=== PATIENT | female | born 1935 | race American Indian/Alaskan Native ===

== ENCOUNTER 2016-08-06 07:46 | Observation (INO) | payer MEDICARE, OTHER ==
[2016-08-06 07:46] VITALS: BMI 44.8
--- NOTE | 2016-08-06 08:33 | C.PDOC ---
History Of Present Illness Patient is a 80 y/o female, whose PMHx includes CHF, COPD, HTN, GERD, presents to the ED for evaluation of gradual onset of dizziness, and epigastric abdominal pain that developed this morning associated with chest pressure and tightness, dyspnea. Pt admits, similar sx in past " few months ago when was diagnosed with pneumonia". Otherwise, patient denies recent illness, fever, chills, denies severe headache, visual changes, focal deficits, cough, wheezing , palpitations, diaphoresis, V/D, UTI sx. Ambulate to ED , not in any apparent distress. Time Seen by Provider: 08/06/16 08:15 Chief Complaint (Nursing): Dizziness/Lightheaded History Per: Patient History/Exam Limitations: no limitations Onset/Duration Of Symptoms: Gradual Current Symptoms Are (Timing): Still Present Associated Symptoms Preceding Syncopal Episode: Lightheadedness Additional History Per: Patient Past Medical History Reviewed: Historical Data, Nursing Documentation, Vital Signs Vital Signs: Last Vital Signs Temp 97.6 F 08/06/16 11:06 Pulse 72 08/06/16 14:38 Resp 18 08/06/16 14:38 BP 119/68 08/06/16 14:38 Pulse Ox 99 08/06/16 14:38 - Medical History PMH: Arthritis, Asthma, Bronchitis, Gastritis, Gall Bladder Disease, HTN, Hypothyroidism, Peripheral Edema Denies: Chronic Kidney Disease Surgical History: Cholecystectomy - [facility] Procedures CLOSED ENDOSCOPIC BIOPSY OF LARGE INTESTINE (12/10/13) ESOPHAGOGASTRODUODENOSCOPY [EGD] W/CLOSED BIOPSY (12/10/13) Family History: States: Unknown Family Hx - Social History Hx Tobacco Use: No Hx Alcohol Use: No Hx Substance Use: No - Immunization History Hx Tetanus Toxoid Vaccination: No Hx Influenza Vaccination: Yes Hx Pneumococcal Vaccination: Yes Review Of Systems Except As Marked, All Systems Reviewed And Found Negative. Constitutional: Negative for: Fever, Chills Cardiovascular: Positive for: Light Headedness, Other (chest tightness/pressure) . Negative for: Chest Pain, Palpitations, Edema Respiratory: Negative for: Shortness of Breath Gastrointestinal: Positive for: Abdominal Pain (epigastric). Negative for: Nausea, Vomiting, Diarrhea Neurological: Positive for: Dizziness. Negative for: Weakness, Numbness, Headache Physical Exam - Physical Exam Appears: Non-toxic, No Acute Distress Skin: Normal Color, Warm, Dry, No Rash Head: Atraumatic, Normacephalic Eye(s): bilateral: Normal Inspection, PERRL, EOMI Nose: Normal Oral Mucosa: Moist Throat: Normal, No Erythema, No Exudate, No Drooling Neck: Normal, Normal ROM, Supple Chest: Symmetrical, No Tenderness Cardiovascular: Rhythm Regular, No Friction Rub, No Murmur, JVD Respiratory: Normal Breath Sounds, No Rales, No Rhonchi, No Stridor, No Wheezing Gastrointestinal/Abdominal: Soft, Tenderness (mild epigastric), No Guarding, No Rebound Back: Normal Inspection Extremity: Pedal Edema (B/L 1+/2+), No Calf Tenderness, No Deformity Neurological/Psych: Oriented x3, Normal Speech, Normal Cognition, Normal Motor, Normal Sensation, Normal Reflexes ED Course And Treatment - Laboratory Results Result Diagrams: 08/06/16 09:02 08/06/16 09:02 ECG: Interpreted By Me, Viewed By Me ECG Rhythm: Sinus Rhythm, R BBB ECG Interpretation: No Changes From Prior (01/31/16) Interpretation Of ECG: SR@69/min, LAD, RBBB, T wave inversion in III, AVF, V1- V5. Rate From EC (bpm) O2 Sat by Pulse Oximetry: 100 (on RA) Pulse Ox Interpretation: Normal - Other Rad CXR X-Ray: Read By Radiologist Interpretation: IMPRESSION: Bibasilar atelectasis. Elevation of the right hemidiaphragm. Progress Note: Labs, EKG, CXR ordered and reviewed. Patient was treated with Pepcid IVP, and and Zofran inj in the ER. On re-eval, pt remained unchanged. Diagnostics and imaging review and case discussed with ED attending and admission recommend. Case discussed with pt's PMD and admission arranged to tele, OBS. Disposition - Disposition Disposition: HOSPITALIZED Disposition Time: 10:33 Condition: STABLE - Clinical Impression Clinical Impression: Heart failure, Chest pain, Dyspnea - PA / SUPER[employer]OR [employer] / Resident Statement MD/DO has reviewed & agrees with the documentation as recorded. - Scribe Statement The provider has reviewed the documentation as recorded by the Scribe Maryann Young All medical record entries made by the Leslyibe were at my direction and personally dictated by me. I have reviewed the chart and agree that the record accurately reflects my personal performance of the history, physical exam, medical decision making, and the department course for this patient. I have also personally directed, reviewed, and agree with the discharge instructions and disposition.
[2016-08-06 09:07] LABS: BASO # 0.1 K/uL (0.0-0.2); BASO % 0.7 % (0.0-2.0); EOS # 0.1 K/uL (0.0-0.7); EOS % 1.6 % (0.0-4.0); HEMATOCRIT 33.8 % (34.0-47.0); LYMPH # 2.5 K/uL (1.0-4.3); LYMPH % 28.1 % (20.0-40.0); MEAN CELL VOLUME 80.4 fL (81.0-99.0); MEAN CORPUSCULAR HEMOGLOBIN 25.3 pg (27.0-31.0); MEAN CORPUSCULAR HGB CONC 31.4 g/dL (33.0-37.0); MONO # 0.6 K/uL (0.0-0.8); MONO % 6.6 % (0.0-10.0); RED CELL DISTRIBUTION WIDTH 15.4 % (11.5-14.5); WHITE BLOOD COUNT 8.9 K/uL (4.8-10.8)
[2016-08-06 09:14] LABS: CHLORIDE 101 mmol/L (98-107); INR 1.1
[2016-08-06 09:15] LABS: POTASSIUM 3.6 mmol/L (3.6-5.2); SODIUM 141 mmol/L (132-148)
[2016-08-06 09:17] LABS: ALB/GLOB RATIO 1.1 (1.0-2.1); BILIRUBIN,TOTAL 0.4 mg/dL (0.2-1.3); CARBON DIOXIDE 29 mmol/L (22-30); GFR AFRICAN-AMERICAN > 60
[2016-08-06 09:18] LABS: ALKALINE PHOSPHATASE 56 U/L (38-126); ALT/SGPT 18 U/L (9-52); AST/SGOT 36 U/L (14-36); BLOOD UREA NITROGEN 11 mg/dL (7-17); CALCIUM 8.8 mg/dl (8.6-10.4); GLUCOSE,RANDOM 96 mg/dL (65-105)
--- NOTE | 2016-08-06 10:07 | RAD ---
HISTORY: chest pain COMPARISON: Chest x-ray performed 02/04/16 TECHNIQUE: Chest, one view. FINDINGS: Examination limited by habitus and hypoinflation. LUNGS: Bibasilar atelectasis. Please note that chest x-ray has limited sensitivity for the detection of pulmonary masses. PLEURA: No significant pleural effusion identified. No definite pneumothorax . CARDIOVASCULAR: Cardiomegaly. Atherosclerotic calcifications of the aortic knob. OSSEOUS STRUCTURES: Degenerative changes. VISUALIZED UPPER ABDOMEN: Elevated right hemidiaphragm. OTHER FINDINGS: None. IMPRESSION: Bibasilar atelectasis. Elevation of the right hemidiaphragm.
[2016-08-06] MEDS ORDERED: Albuterol 0.083% Inhal Sol (2.5 mg/3 mL) UD IH STA (11:06)
[2016-08-06] MEDS ORDERED: Albuterol 0.083% Inhal Sol (2.5 mg/3 mL) UD ONE (11:13)
[2016-08-06 12:37] LABS: RBC URINE < 1 /hpf (0-3); URINE BILIRUBIN NEGATIVE (NEGATIVE); URINE BLOOD NEGATIVE (NEGATIVE); URINE COLOR Yellow (YELLOW); URINE GLUCOSE (UA) NORMAL (Normal); URINE KETONE NEGATIVE (NEGATIVE); URINE LEUKOCYTE ESTERASE TRACE Leu/uL (Negative); URINE PROTEIN NEGATIVE (NEGATIVE); URINE UROBILINOGEN NORMAL mg/dL (0.2-1.0); WBC URINE 4 /hpf (0-5)
[2016-08-06] MEDS ORDERED: Albuterol HFA 90 mcg/actuation (8 g) INH PRN (21:51)
[2016-08-07 01:07] VITALS: RESP 20
[2016-08-07 06:31] LABS: CHOLESTEROL 151 mg/dL (0-199); MEAN CELL VOLUME 80.5 fL (81.0-99.0); MEAN CORPUSCULAR HEMOGLOBIN 25.2 pg (27.0-31.0); MEAN CORPUSCULAR HGB CONC 31.2 g/dL (33.0-37.0); MEAN PLATELET VOLUME 8.1 fL (7.2-11.7); RED CELL DISTRIBUTION WIDTH 15.2 % (11.5-14.5); WHITE BLOOD COUNT 8.6 K/uL (4.8-10.8)
[2016-08-07 06:34] LABS: IRON 30 ug/dL (37-170)
[2016-08-07 06:47] LABS: CHLORIDE 100 mmol/L (98-107); POTASSIUM 3.5 mmol/L (3.6-5.2); SODIUM 139 mmol/L (132-148)
[2016-08-07 06:49] LABS: GFR AFRICAN-AMERICAN > 60
[2016-08-07 06:50] LABS: BLOOD UREA NITROGEN 10 mg/dL (7-17); CALCIUM 8.2 mg/dl (8.6-10.4); CARBON DIOXIDE 33 mmol/L (22-30); GLUCOSE,RANDOM 89 mg/dL (65-105)
[2016-08-07 07:09] LABS: THYROID STIMULATING HORMONE 4.17 mIU/L (0.46-4.68)
[2016-08-07 07:38] LABS: FOLATE 15.8 ng/mL
--- NOTE | 2016-08-07 07:44 | HP ---
CHIEF COMPLAINT: Shortness of breath, chest pain. HISTORY OF PRESENT ILLNESS: The patient is an 80-year-old female with past medical history of congestive heart failure, COPD, hypertension, GERD, dyspepsia. Came to the Emergency Room for evaluation of gradual onset of dizziness, epigastric abdominal pain , This morning associated with chest pressure and tightness, dyspnea. The patient admitted with similar history in the past a few months ago when was diagnosed with pneumonia. The patient denies recent illness. No fever, no chills. Denies severe headache, visual changes, facial deficit, hematuria, hematochezia. Sometimes feeling shortness of breath, sometimes feeling lightheadedness. PAST MEDICAL HISTORY: As above, arthritis, asthma, bronchitis, gastritis, gallbladder disease, cholelithiasis, hypertension, hypothyroidism, peripheral edema. FAMILY HISTORY: Father and mother unknown. HABITS: Never smoked, no drugs, no ethanol. REVIEW OF SYSTEMS: The patient was seen and examined on the bedside in the ER, was having breakfast. Complaining about lightheadedness, chest tightness and pressure, coughing, swelling of the legs. No fever, no chills. No abdominal pain. No nausea, vomiting, diarrhea. Positive for dizziness, but no weakness, numbness or headache. PHYSICAL EXAMINATION: VITAL SIGNS: Temperature 97.6, pulse 72, respiratory rate 18, blood pressure 119/80 , pulse oximetry 99%. HEENT: Normocephalic, atraumatic. Eyes: PERRLA. Extraocular muscles intact. Conjunctivae pink. Eyelids unremarkable. Nose patent. Mucous membranes moist. NECK: Supple. No carotid bruit, no JVD, no thyromegaly. CHEST: Bilaterally symmetrical. HEART: S1, S2 positive. LUNGS: Clear to auscultation. ABDOMEN: Soft. Bowel sounds positive. No organomegaly. EXTREMITIES: Positive edema. No calf tenderness. No deformity. NEUROLOGIC: The patient is oriented x 3. Cranial nerves II-XII are grossly intact. LABORATORIES: White blood cells 8.9, hemoglobin 10.6, hematocrit 33.8, platelets 215. Sodium 141, potassium 3.6, BUN 11, creatinine 0.8, glucose 96. ASSESSMENT AND PLAN: The patient is an 80-year-old female with anemia, came with exacerbation of chronic obstructive pulmonary disease, asthma, rule out congestive heart failure, chest pain, dyspnea, history of congestive heart failure, chronic obstructive pulmonary disease, hypertension, gastroesophageal reflux disease, dyspepsia, degenerative joint disease, bronchitis, gastritis, cholelithiasis, hypothyroidism, obesity. We admitted the patient. Called cardiology and pulmonary consult. Started home medications , albuterol, carvedilol, Crestor for hypercholesterolemia, Lovenox for deep venous thrombosis prophylaxis , Pepcid for gastrointestinal prophylaxis. Gastrointestinal and deep venous thrombosis prophylaxis. Repeat labs. We will follow up. Sherron Lane MD cc: [id number] TT: 08/07/2016 07:44:26 en MTDD
[2016-08-07] MEDS ORDERED: POTASSIUM CITRATE 10 MEQ PO SCH (10:00)
[2016-08-07] MEDS ORDERED: MethylPREDNISolone 40 mg Vial IVP SCH (10:00)
[2016-08-07] MEDS: Enoxaparin 40 mg Syringe SC SCH (10:06)
--- NOTE | 2016-08-07 12:50 | CP.PCM.CON ---
History of Present Illness - History of Present Illness History of Present Illness: Pulmonology consulted for shortness of breath. Patient is an 80yo AA F that originally presented to with shortness of breath , dizziness, and chest tightness x1 day. The patient reported no inciting factors that lead to this episode of dyspnea. The patients reports that she had developed a cough with yellow sputum around the same time as the dyspnea. The patient reported that this had happened a few months ago prior and was diagnosed with pneumonia. The patient also complains of LE edema bilaterally. The patient currently denies, chest pain, palpitations, nausea, vomiting, fever , nasal congestion, abd pain, joint pain. PMH:Asthma, bronchitis, gastritis, HTN, Hypothyroidism PSH: Cholecystectomy, Thyroidectomy Allergies: Fish FamHx: Denies significant family history Social: Denies smoking, etoh, and illicit drug use. Review of Systems - Constitutional Constitutional: Chills, Headache. absent: Fever - EENT Eyes: absent: Blurred Vision, Change in Vision Nose/Mouth/Throat: absent: Nasal Congestion, Nasal Discharge, Sore Throat - Cardiovascular Cardiovascular: Dyspnea, Dyspnea on Exertion. absent: Chest Pain, Chest Pain at Rest - Respiratory Respiratory: Cough, Dyspnea, Dyspnea on Exertion, Wheezing, Change in Mucous Color. absent: Hemoptysis, Stridor, Pain on Inspiration, Pain with Coughing Past Patient History - Infectious Disease Hx of Infectious Diseases: None - Past Medical History & Family History Past Medical History?: Yes - Past Social History Smoking Status: Never Smoked - CARDIAC Hx Hypertension: Yes Hx Peripheral Edema: Yes - PULMONARY Hx Asthma: Yes Hx Bronchitis: Yes - NEUROLOGICAL Hx Neurological Disorder: Yes Hx Dizziness: Yes - HEENT Hx HEENT Problems: Yes Hx Epistaxis: Yes Hx Glaucoma: Yes Other/Comment: 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 wear glasses for poor vision - RENAL Hx Chronic Kidney Disease: No - ENDOCRINE/METABOLIC Hx Hypothyroidism: Yes - HEMATOLOGICAL/ONCOLOGICAL Hx Blood Disorders: Yes Hx Blood Transfusions: Yes (x 2) Hx Blood Transfusion Reaction: No - INTEGUMENTARY Hx Dermatological Problems: No - MUSCULOSKELETAL/RHEUMATOLOGICAL Hx Arthritis: Yes - GASTROINTESTINAL Hx Gall Bladder Disease: Yes Hx Gastritis: Yes - GENITOURINARY/GYNECOLOGICAL Hx Genitourinary Disorders: No - PSYCHIATRIC Hx Substance Use: No - SURGICAL HISTORY Hx Cholecystectomy: Yes - ANESTHESIA Hx Anesthesia: Yes Hx Anesthesia Reactions: Yes Hx Malignant Hyperthermia: No Meds Allergies/Adverse Reactions: Allergies Allergy/AdvReac Type Severity Reaction Status Date / Time FISH Allergy RASH Verified 08/06/16 08:06 seasonal Allergy Uncoded 08/06/16 08:06 - Medications Medications: Current Medications Albuterol (Ventolin Hfa 90 Mcg/Actuation (8 G)) 1 puff INH RQ4 PRN PRN Reason: Shortness of Breath Amlodipine Besylate (Norvasc) 10 mg PO DAILY [facility] Last Admin: 08/07/16 10:06 Dose: 10 mg Carvedilol (Coreg) 12.5 mg PO BID [facility] Last Admin: 08/07/16 10:13 Dose: 12.5 mg Enalapril Maleate (Vasotec) 20 mg PO BID [facility] Last Admin: 08/07/16 10:13 Dose: 20 mg Enoxaparin Sodium (Lovenox) 40 mg SC DAILY [facility] Last Admin: 08/07/16 10:06 Dose: 40 mg Ferrous Sulfate (Feosol) 325 mg PO DAILY [facility] Last Admin: 08/07/16 10:06 Dose: 325 mg Furosemide (Lasix) 40 mg PO DAILY [facility] Last Admin: 08/07/16 10:06 Dose: 40 mg Home Med (Potassium Citrate [Potassium Citrate Er]) 10 meq PO DAILY [facility] Methylprednisolone (Solu-Medrol) 40 mg IVP Q12 [facility] Last Admin: 08/07/16 10:06 Dose: 40 mg Rosuvastatin Calcium (Crestor) 5 mg PO HS [facility] Last Admin: 08/06/16 22:37 Dose: 5 mg Physical Exam - Constitutional Appears: Well, Non-toxic, No Acute Distress - Head Exam Head Exam: ATRAUMATIC, NORMAL INSPECTION - Eye Exam Eye Exam: EOMI, Normal appearance - ENT Exam ENT Exam: Normal Exam - Neck Exam Neck exam: Positive for: Normal Inspection - Respiratory Exam Respiratory Exam: Wheezes. absent: Chest Wall Tenderness, Decreased Breath Sounds - Cardiovascular Exam Cardiovascular Exam: +S1, +S2 - Neurological Exam Neurological exam: Alert, Oriented x3 - Skin Skin Exam: Dry, Normal Color, Warm Results - Vital Signs Recent Vital Signs: Last Vital Signs Temp 99.0 F 08/07/16 09:11 Pulse 72 08/07/16 09:11 Resp 20 08/07/16 09:11 BP 121/78 08/07/16 10:13 Pulse Ox 95 04/17/17 09:11 - Labs Result Diagrams: 08/07/16 06:11 08/07/16 06:11 Labs: Laboratory Results - last 24 hr 08/07/16 06:11 WBC 8.6 RBC 4.10 Hgb 10.3 L Hct 33.0 L MCV 80.5 L MCH 25.2 L MCHC 31.2 L RDW 15.2 H Plt Count 206 MPV 8.1 Sodium 139 Potassium 3.5 L Chloride 100 Carbon Dioxide 33 H Anion Gap 10 BUN 10 Creatinine 0.8 Est GFR ( Amer) > 60 Est GFR (Non-Af Amer) > 60 Random Glucose 89 Hemoglobin A1c 6.5 Calcium 8.2 L Iron 30 L TIBC 211 L % Saturation 14 L Total Creatine Kinase 52 CK-MB (Mass) 0.65 Troponin I, Quant < 0.0120 NT-Pro-B Natriuret Pep 160 Triglycerides 125 Cholesterol 151 LDL Cholesterol Direct 72 HDL Cholesterol 35 Vitamin B12 933 H Folate 15.8 TSH 3rd Generation 4.17 Assessment & Plan - Assessment and Plan (Free Text) Plan: 1) Asthma ABG on Room Air Continue Steroids continue breathing treatments as necessary - Date & Time Date: 08/07/16 Time: 12:49
[2016-08-07] MEDS ORDERED: Potassium Chloride 20 mEq ER Tab PO SCH (16:45)
[2016-08-07] MEDS ORDERED: Magnesium Hydroxide Susp 30 ml UD PO ONE (16:47)
[2016-08-07] MEDS: Potassium Chloride 20 mEq ER Tab PO SCH (17:29)
--- NOTE | 2016-08-07 18:08 | CP.PCM.CON ---
History of Present Illness - History of Present Illness History of Present Illness: Shortness of breath with swelling of the legs for the last few weeks. On the day of admission got worse and came to hospital for treatment. Review of Systems - EENT Eyes: Diplopia Past Patient History - Infectious Disease Hx of Infectious Diseases: None - Past Medical History & Family History Past Medical History?: Yes - Past Social History Smoking Status: Never Smoked - CARDIAC Hx Hypertension: Yes Hx Peripheral Edema: Yes - PULMONARY Hx Asthma: Yes Hx Bronchitis: Yes - NEUROLOGICAL Hx Neurological Disorder: Yes Hx Dizziness: Yes - HEENT Hx HEENT Problems: Yes Hx Epistaxis: Yes Hx Glaucoma: Yes Other/Comment: 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 wear glasses for poor vision - RENAL Hx Chronic Kidney Disease: No - ENDOCRINE/METABOLIC Hx Hypothyroidism: Yes - HEMATOLOGICAL/ONCOLOGICAL Hx Blood Disorders: Yes Hx Blood Transfusions: Yes (x 2) Hx Blood Transfusion Reaction: No - INTEGUMENTARY Hx Dermatological Problems: No - MUSCULOSKELETAL/RHEUMATOLOGICAL Hx Arthritis: Yes - GASTROINTESTINAL Hx Gall Bladder Disease: Yes Hx Gastritis: Yes - GENITOURINARY/GYNECOLOGICAL Hx Genitourinary Disorders: No - PSYCHIATRIC Hx Substance Use: No - SURGICAL HISTORY Hx Cholecystectomy: Yes - ANESTHESIA Hx Anesthesia: Yes Hx Anesthesia Reactions: Yes Hx Malignant Hyperthermia: No Meds Allergies/Adverse Reactions: Allergies Allergy/AdvReac Type Severity Reaction Status Date / Time FISH Allergy RASH Verified 08/06/16 08:06 seasonal Allergy Uncoded 08/06/16 08:06 - Medications Medications: Current Medications Albuterol (Ventolin Hfa 90 Mcg/Actuation (8 G)) 1 puff INH RQ4 PRN PRN Reason: Shortness of Breath Amlodipine Besylate (Norvasc) 10 mg PO DAILY [facility] Last Admin: 08/07/16 10:06 Dose: 10 mg Carvedilol (Coreg) 12.5 mg PO BID [facility] Last Admin: 08/07/16 17:29 Dose: 12.5 mg Docusate Sodium (Colace) 100 mg PO BID [facility] Last Admin: 08/07/16 17:29 Dose: 100 mg Enalapril Maleate (Vasotec) 20 mg PO BID [facility] Last Admin: 08/07/16 10:13 Dose: 20 mg Enoxaparin Sodium (Lovenox) 40 mg SC DAILY [facility] Last Admin: 08/07/16 10:06 Dose: 40 mg Ferrous Sulfate (Feosol) 325 mg PO DAILY [facility] Last Admin: 08/07/16 10:06 Dose: 325 mg Furosemide (Lasix) 40 mg PO DAILY [facility] Last Admin: 08/07/16 10:06 Dose: 40 mg Methylprednisolone (Solu-Medrol) 40 mg IVP Q12 [facility] Last Admin: 08/07/16 10:06 Dose: 40 mg Potassium Chloride (K-Dur 20 Meq Er Tab) 20 meq PO DAILY [facility] Stop: 08/08/16 10:01 Last Admin: 08/07/16 17:29 Dose: 20 meq Rosuvastatin Calcium (Crestor) 5 mg PO HS [facility] Last Admin: 08/06/16 22:37 Dose: 5 mg Physical Exam - Head Exam Head Exam: NORMOCEPHALIC - Neck Exam Neck exam: Positive for: Normal Inspection - Respiratory Exam Respiratory Exam: NORMAL BREATHING PATTERN - Cardiovascular Exam Cardiovascular Exam: REGULAR RHYTHM - GI/Abdominal Exam GI & Abdominal Exam: Normal Bowel Sounds - Extremities Exam Extremities exam: Positive for: pedal edema - Psychiatric Exam Psychiatric exam: Normal Mood Results - Vital Signs Recent Vital Signs: Last Vital Signs Temp 98.1 F 08/07/16 16:41 Pulse 76 08/07/16 16:41 Resp 20 08/07/16 16:41 BP 111/68 08/07/16 17:29 Pulse Ox 95 08/07/16 16:41 - Labs Result Diagrams: 08/07/16 06:11 08/07/16 06:11 Labs: Laboratory Results - last 24 hr 08/07/16 08/07/16 06:11 16:32 WBC 8.6 RBC 4.10 Hgb 10.3 L Hct 33.0 L MCV 80.5 L MCH 25.2 L MCHC 31.2 L RDW 15.2 H Plt Count 206 MPV 8.1 Sodium 139 Potassium 3.5 L Chloride 100 Carbon Dioxide 33 H Anion Gap 10 BUN 10 Creatinine 0.8 Est GFR ( Amer) > 60 Est GFR (Non-Af Amer) > 60 Random Glucose 89 Hemoglobin A1c 6.5 Calcium 8.2 L Iron 30 L TIBC 211 L % Saturation 14 L Total Creatine Kinase 52 52 CK-MB (Mass) 0.65 0.56 Troponin I, Quant < 0.0120 < 0.0120 NT-Pro-B Natriuret Pep 160 Triglycerides 125 Cholesterol 151 LDL Cholesterol Direct 72 HDL Cholesterol 35 Vitamin B12 933 H Folate 15.8 TSH 3rd Generation 4.17 Assessment & Plan (1) Chest pain Assessment and Plan: Most likely secondary to distress, at present chest pain free, rule out ASC. Status: Acute (2) Dyspnea Assessment and Plan: Secondary to CHF vs ACS, continue diuretics and maintain electrolyte balance. Status: Acute (3) Heart failure Assessment and Plan: Systolic vs Diastolic, no cardiac work-up in the past. 2 D-Echo to assess L V function and further management accordingly. Status: Acute
[2016-08-07] MEDS: MethylPREDNISolone 40 mg Vial IVP SCH (22:13)
--- NOTE | 2016-08-07 23:24 | PN ---
DATE: 08/07/2016 SUBJECTIVE: The patient seen and examined on the bedside. Shortness of breath is getting better. Swelling of the leg is getting better. No nausea, vomiting , diarrhea. No hematuria, hematochezia. No diplopia. No coughing. No sneezing, runny nose. No headache, no dizziness. PHYSICAL EXAMINATION: VITAL SIGNS: Temperature 98.1, pulse 76, blood pressure 113/82, respiratory rate 20. HEENT: Head normocephalic, atraumatic. Eyes PERRLA. Extraocular muscles intact. Conjunctivae pink. Eyelids unremarkable. Nose patent. Mucous membranes moist. NECK: Supple. No carotid bruit, JVD or thyromegaly. CHEST: Bilaterally symmetrical. HEART: S1, S2 positive. LUNGS: Clear to auscultation. ABDOMEN: Soft. Bowel sounds present. No organomegaly. EXTREMITIES: No edema, no cyanosis. NEUROLOGIC: The patient is awake, alert, moving all 4 extremities. No focal deficit. MEDICATIONS: Colace, Coreg, Crestor, Feosol, K-Dur, Lasix, Lovenox, Aldactone, Norvasc, Solu-Medrol, Vasotec, Ventolin. LABORATORY DATA: White blood cells 8.6, hemoglobin 10.3, hematocrit 33.0, platelets 206. Sodium 139, potassium 3.5, BUN 10, creatinine 0.8, calcium 8.2. Troponin is less than 0.0120 x 3. ASSESSMENT AND PLAN: The patient is an 80-year-old lady with anemia, hypokalemia with replaced, hypocalcemia, iron deficiency. Seen by the business development officer, Dr. Alex Bailon. Has chest pain, most likely secondary to distress. At present, chest pain free. Rule out acute coronary syndrome as per business development officer. Technically, this is heart failure and acute coronary syndrome. Continue diuretics and maintain electrolyte imbalance. Congestive heart failure, systolic versus diastolic. No cardiac workup in the past. A 2- D echo to assess the left ventricular function and further management accordingly. Appreciate this business development officer's input. Seen by Dr. Reynold Alvarez, home housekeeper. The patient has history of asthma and bronchitis, gastritis, hypertension, hypothyroidism, history of cholecystectomy, thyroidectomy. Last ordered ABG on room air. Continue steroids. Continue breathing treatment as necessary. We will taper down the steroids. Repeat labs. We will follow up. Sherron Lane MD cc: [id number] TT: 08/07/2016 23:23:53 Confirmation # [id number] Dictation # [id number] MTDDenys
--- NOTE | 2016-08-08 08:01 | CARD ---
APPROVED REPORT EKG Measurement Heart [id number] MS [id number] <Conclusion> Normal sinus rhythm Right bundle branch block T wave abnormality, consider lateral ischemia Abnormal ECG
[2016-08-08] MEDS: Enoxaparin 40 mg Syringe SC SCH (10:06)
[2016-08-08] MEDS: Potassium Chloride 20 mEq ER Tab PO SCH (10:11)
[2016-08-08] MEDS: MethylPREDNISolone 40 mg Vial IVP SCH ×2 (10:51→21:34)
--- NOTE | 2016-08-08 13:56 | CP.PCM.PN ---
Subjective - Date & Time of Evaluation Date of Evaluation: 08/08/16 Time of Evaluation: 13:50 - Subjective Subjective: Patient was seen and examined at bedside, no acute distress, no acute events overnight. The patient was resting comfortably in bed off nasal cannula and reported an improvement in breathing function today. the patient continues to complain of mild headache and cough with yellow sputum production, as well as dyspnea on exertion but currently denies other complaints. Patient reports that she has been using her inhaler as necessary. Objective - Vital Signs/Intake and Output Vital Signs (last 24 hours): Temp Pulse Resp BP Pulse Ox 97.6 F 84 20 120/80 98 08/08/16 08:36 08/08/16 08:36 08/08/16 08:36 08/08/16 10:11 08/08/16 08:36 Intake and Output: 08/08/16 08/08/16 06:59 18:59 Intake Total 100 Balance 100 - Medications Medications: Current Medications Acetaminophen (Tylenol 325mg Tab) 650 mg PO Q8 PRN PRN Reason: headache Albuterol (Ventolin Hfa 90 Mcg/Actuation (8 G)) 1 puff INH RQ4 PRN PRN Reason: Shortness of Breath Amlodipine Besylate (Norvasc) 10 mg PO DAILY [facility] Last Admin: 08/08/16 10:10 Dose: 10 mg Carvedilol (Coreg) 12.5 mg PO BID [facility] Last Admin: 08/08/16 10:11 Dose: 12.5 mg Docusate Sodium (Colace) 100 mg PO BID [facility] Last Admin: 08/08/16 10:11 Dose: 100 mg Enalapril Maleate (Vasotec) 20 mg PO BID [facility] Last Admin: 08/08/16 10:10 Dose: 20 mg Enoxaparin Sodium (Lovenox) 40 mg SC DAILY [facility] Last Admin: 08/08/16 10:06 Dose: 40 mg Ferrous Sulfate (Feosol) 325 mg PO DAILY [facility] Last Admin: 08/08/16 10:11 Dose: 325 mg Furosemide (Lasix) 40 mg PO DAILY [facility] Last Admin: 08/08/16 10:09 Dose: 40 mg Methylprednisolone (Solu-Medrol) 30 mg IVP Q12 [facility] Last Admin: 08/08/16 10:51 Dose: 30 mg Rosuvastatin Calcium (Crestor) 5 mg PO HS [facility] Last Admin: 08/07/16 22:12 Dose: 5 mg - Labs Labs: 08/07/16 06:11 08/07/16 06:11 PT 12.1 SECONDS (9.7-12.2) 08/06/16 09:02 INR 1.1 08/06/16 09:02 APTT 33 SECONDS (21-34) 08/06/16 09:02 - Constitutional Appears: Well, Non-toxic, No Acute Distress - Head Exam Head Exam: ATRAUMATIC, NORMAL INSPECTION - Eye Exam Eye Exam: EOMI, Normal appearance - ENT Exam ENT Exam: Mucous Membranes Moist, Normal Exam - Neck Exam Neck Exam: Normal Inspection - Respiratory Exam Respiratory Exam: Decreased Breath Sounds, Wheezes - Cardiovascular Exam Cardiovascular Exam: REGULAR RHYTHM, +S1, +S2 - Extremities Exam Extremities Exam: Pedal Edema - Neurological Exam Neurological Exam: Alert, Awake, Oriented x3 - Skin Skin Exam: Dry, Normal Color, Warm Assessment and Plan - Assessment and Plan (Free Text) Plan: 1) Asthma -Nebulizer ordered -Inhaler use prn -continue steroid use
--- NOTE | 2016-08-08 19:06 | CP.PCM.PN ---
Subjective - Date & Time of Evaluation Date of Evaluation: 08/08/16 Time of Evaluation: 19:03 - Subjective Subjective: Shortness of breath have improved. Occasional cough. Otherwise feeling better. Swelling of the legs have improved. Objective - Vital Signs/Intake and Output Vital Signs (last 24 hours): Temp Pulse Resp BP Pulse Ox 98 F 78 20 130/82 96 08/08/16 15:46 08/08/16 16:00 08/08/16 15:46 08/08/16 18:16 08/08/16 15:46 - Medications Medications: Current Medications Acetaminophen (Tylenol 325mg Tab) 650 mg PO Q8 PRN PRN Reason: headache Last Admin: 08/08/16 15:03 Dose: 650 mg Albuterol (Ventolin Hfa 90 Mcg/Actuation (8 G)) 1 puff INH RQ4 PRN PRN Reason: Shortness of Breath Amlodipine Besylate (Norvasc) 10 mg PO DAILY [facility] Last Admin: 08/08/16 10:10 Dose: 10 mg Carvedilol (Coreg) 12.5 mg PO BID [facility] Last Admin: 08/08/16 18:16 Dose: 12.5 mg Docusate Sodium (Colace) 100 mg PO BID [facility] Last Admin: 08/08/16 18:15 Dose: 100 mg Enalapril Maleate (Vasotec) 20 mg PO BID [facility] Last Admin: 08/08/16 18:15 Dose: 20 mg Enoxaparin Sodium (Lovenox) 40 mg SC DAILY [facility] Last Admin: 08/08/16 10:06 Dose: 40 mg Ferrous Sulfate (Feosol) 325 mg PO DAILY [facility] Last Admin: 08/08/16 10:11 Dose: 325 mg Furosemide (Lasix) 40 mg PO DAILY [facility] Last Admin: 08/08/16 10:09 Dose: 40 mg Methylprednisolone (Solu-Medrol) 30 mg IVP Q12 [facility] Last Admin: 08/08/16 10:51 Dose: 30 mg Rosuvastatin Calcium (Crestor) 5 mg PO HS [facility] Last Admin: 08/07/16 22:12 Dose: 5 mg - Labs Labs: PT 12.1 SECONDS (9.7-12.2) 08/06/16 09:02 INR 1.1 08/06/16 09:02 APTT 33 SECONDS (21-34) 08/06/16 09:02 - Head Exam Head Exam: NORMAL INSPECTION - Neck Exam Neck Exam: Normal Inspection - Respiratory Exam Respiratory Exam: NORMAL BREATHING PATTERN - Cardiovascular Exam Cardiovascular Exam: REGULAR RHYTHM - Extremities Exam Extremities Exam: Normal Inspection - Neurological Exam Neurological Exam: Oriented x3 Assessment and Plan (1) Chest pain Assessment & Plan: Non-cardiac and no new episodes. Status: Acute (2) Dyspnea Assessment & Plan: Improved, continue inhalers. Status: Acute (3) Heart failure Assessment & Plan: Diastolic dysfunction, shortness of breath have improved. Continue diuretics. Fluid restriction, discussed with patient. Status: Acute
--- NOTE | 2016-08-09 01:06 | PN ---
DATE: 08/08/2016 SUBJECTIVE: The patient was seen and examined on the bedside, looks a little bit comfortable. Shortness of breath is better. Chest pain is better. Coughing is better. Swelling of the leg is improved. No fever, no chills, no nausea, vomiting, or diarrhea. No hematuria or hematochezia. No headache, no dizziness. PHYSICAL EXAMINATION: VITAL SIGNS: Temperature 98, pulse 78, respirations 20, blood pressure 130/82, pulse oximetry 96. HEENT: Head: Normocephalic, atraumatic. Eyes: PERRLA. Extraocular muscles intact. Conjunctivae pink. Eyelids unremarkable. Nose patent. NECK: Supple. No carotid bruit, JVD or thyromegaly. CHEST: Bilaterally symmetrical. HEART: S1, S2 positive. LUNGS: Clear to auscultation. ABDOMEN: Soft. Bowel sounds present. No organomegaly. EXTREMITIES: No edema, no cyanosis. NEUROLOGIC: The patient is awake, alert, follows simple commands. MEDICATIONS: Tylenol, albuterol, amlodipine, carvedilol, docusate, Vasotec, Lovenox, Feosol, Lasix, Solu-Medrol, Crestor. LABORATORY DATA: White blood cells 8.6, hemoglobin 10.3, hematocrit 33.0, platelets 206. Sodium 139, potassium 3.5, BUN 10, creatinine 0.8, calcium 8.2, iron 30%. ASSESSMENT AND PLAN: The patient is an 80-year-old female with anemia, hypokalemia, hypocalcemia, seen by copy editorDr. has dyspnea improved. Continue inhaler, heart failure, diastolic dysfunction, shortness of breath has improved. Continue Fluid restriction. Patient education done. Restrict the fluid. Chest pain noncardiac and no new episode. Seen by Reynold Alvarez forestry adviser. No acute event noted overnight. Was complaining about mild headache, exacerbation of asthma. Continue nebulizer treatment and inhaled bronchodilators. Continue steroid use, tapering doses. Appreciate forestry adviser and copy editor's input. Repeat labs. We will follow up. Sherron Lane MD cc: [id number] TT: 08/09/2016 01:05:27 Confirmation # [id number] Dictation # [id number] [id number]
[2016-08-09 06:54] LABS: HEMATOCRIT 33.6 % (34.0-47.0); MEAN CORPUSCULAR HEMOGLOBIN 25.2 pg (27.0-31.0); MEAN CORPUSCULAR HGB CONC 31.4 g/dL (33.0-37.0); MEAN PLATELET VOLUME 8.4 fL (7.2-11.7); RED CELL DISTRIBUTION WIDTH 15.6 % (11.5-14.5); WHITE BLOOD COUNT 14.8 K/uL (4.8-10.8)
[2016-08-09 07:13] LABS: CHLORIDE 102 mmol/L (98-107); POTASSIUM 4.1 mmol/L (3.6-5.2); SODIUM 142 mmol/L (132-148)
[2016-08-09 07:16] LABS: CARBON DIOXIDE 27 mmol/L (22-30); GFR AFRICAN-AMERICAN > 60
[2016-08-09 07:17] LABS: BLOOD UREA NITROGEN 13 mg/dL (7-17); CALCIUM 8.6 mg/dl (8.6-10.4); GLUCOSE,RANDOM 127 mg/dL (65-105)
[2016-08-09] MEDS: MethylPREDNISolone 40 mg Vial IVP SCH ×2 (09:50→21:47)
[2016-08-09] MEDS: Enoxaparin 40 mg Syringe SC SCH (09:50)
[2016-08-09] MEDS: POLYETHYLENE GLYCOL 3350 17 GM/Dose PACKET PO SCH (09:58)
--- NOTE | 2016-08-09 11:07 | CP.PCM.PN ---
Subjective - Date & Time of Evaluation Date of Evaluation: 08/09/16 Time of Evaluation: 09:00 - Subjective Subjective: Patient was seen and examined at bedside, no acute distress, no acute events overnight. Pt was resting comfortably in bed and reports to having less dyspnea on exertion and wheezes. The patients cough is improving with sputum color being more clear and less yellow as per patient reports. The patient still complains of headache due to cough and lack of sleep while in the hospital. Patient currently denies nausea, vomiting, fever, chills, chest pain, palpitations, nasal congestion, runny nose, wheezes, stridor, chest congestion at this time. Objective - Vital Signs/Intake and Output Vital Signs (last 24 hours): Temp Pulse Resp BP Pulse Ox 97.9 F 63 20 137/84 97 08/09/16 08:59 08/09/16 08:59 08/09/16 08:59 08/09/16 09:52 08/09/16 08:59 Intake and Output: 08/09/16 08/09/16 06:59 18:59 Intake Total 470 Balance 470 - Medications Medications: Current Medications Acetaminophen (Tylenol 325mg Tab) 650 mg PO Q8 PRN PRN Reason: headache Last Admin: 08/09/16 09:51 Dose: 650 mg Albuterol (Ventolin Hfa 90 Mcg/Actuation (8 G)) 1 puff INH RQ4 PRN PRN Reason: Shortness of Breath Last Admin: 08/08/16 21:14 Dose: 1 puff Amlodipine Besylate (Norvasc) 10 mg PO DAILY [facility] Last Admin: 08/09/16 09:52 Dose: 10 mg Carvedilol (Coreg) 12.5 mg PO BID [facility] Last Admin: 08/09/16 09:52 Dose: 12.5 mg Docusate Sodium (Colace) 100 mg PO BID [facility] Last Admin: 08/09/16 09:52 Dose: 100 mg Enalapril Maleate (Vasotec) 20 mg PO BID [facility] Last Admin: 08/09/16 09:51 Dose: 20 mg Enoxaparin Sodium (Lovenox) 40 mg SC DAILY [facility] Last Admin: 08/09/16 09:50 Dose: 40 mg Ferrous Sulfate (Feosol) 325 mg PO DAILY [facility] Last Admin: 08/09/16 09:50 Dose: 325 mg Furosemide (Lasix) 40 mg PO DAILY [facility] Last Admin: 08/09/16 09:52 Dose: 40 mg Methylprednisolone (Solu-Medrol) 20 mg IVP Q12 [facility] Last Admin: 08/09/16 09:50 Dose: 20 mg Polyethylene Glycol (Miralax) 17 gm PO DAILY [facility] Last Admin: 08/09/16 09:58 Dose: 17 gm Rosuvastatin Calcium (Crestor) 5 mg PO HS [facility] Last Admin: 08/08/16 21:33 Dose: 5 mg - Labs Labs: 08/09/16 06:42 08/09/16 06:42 PT 12.1 SECONDS (9.7-12.2) 08/06/16 09:02 INR 1.1 08/06/16 09:02 APTT 33 SECONDS (21-34) 08/06/16 09:02 - Constitutional Appears: Well, Non-toxic, No Acute Distress - Head Exam Head Exam: ATRAUMATIC, NORMAL INSPECTION - Eye Exam Eye Exam: EOMI, Normal appearance - ENT Exam ENT Exam: Normal Exam - Neck Exam Neck Exam: Normal Inspection - Respiratory Exam Respiratory Exam: Clear to Ausculation Bilateral, NORMAL BREATHING PATTERN - Cardiovascular Exam Cardiovascular Exam: REGULAR RHYTHM, +S1, +S2 - Neurological Exam Neurological Exam: Alert, Awake, Oriented x3 - Skin Skin Exam: Dry, Normal Color, Warm Assessment and Plan (1) Asthma Assessment & Plan: Patient is improving -continue steroid treatments -Finegan ordered for cough Status: Acute
[2016-08-09] MEDS ORDERED: MethylPREDNISolone 40 mg Vial IVP SCH (23:30)
[2016-08-10 01:32] VITALS: O2SAT 96
--- NOTE | 2016-08-10 07:45 | PN ---
DATE: 08/09/2016 SUBJECTIVE: The patient is an 80-year-old female, feeling better. Cough is getting better. No acute event overnight. Resting comfortably. Cough is better. Shortness of breath is better. Chest pain is better. No more wheezing. No headache, no dizziness. Appetite is okay. Sleep is okay and bowel movement is okay. No chest pain, no palpitation, no nasal congestion, no runny nose, no fever, no chills. PHYSICAL EXAMINATION: VITAL SIGNS: Temperature 97.9, pulse 53, respiratory rate 20, blood pressure 137/84, pulse oximetry 97. HEENT: Head normocephalic, atraumatic. Eyes: PERRLA. Extraocular muscles intact. Conjunctivae pink. Eyelids unremarkable. Nose patent. NECK: Supple. No carotid bruit, no JVD or thyromegaly. CHEST: Bilaterally symmetrical. HEART: S1, S2 positive. LUNGS: Clear to auscultation. ABDOMEN: Soft. Bowel sounds present. No organomegaly. EXTREMITIES: No edema, no cyanosis. NEUROLOGIC: The patient is awake, alert, moving all 4 extremities. No focal deficit. MEDICATIONS: Tylenol, Norvasc, Coreg, Colace, Vasotec, Lovenox, Lasix, Solu- Medrol, MiraLAX, Crestor. LABORATORY DATA: White blood cells 14.8, hemoglobin 10.6, hematocrit 33.6, platelets 248. Sodium 142, potassium 4.1, BUN 13, creatinine 0.7, and glucose 127. ASSESSMENT AND PLAN: The patient is an 80-year-old lady with leukocytosis, anemia, hyperglycemia, came with chest pain, seen by the label paster, has asthma. Asthma is improving. The patient is getting tapering dose of steroid , Phenergan for cough. I reviewed Dr. Alvarez's notes. I reviewed Dr. Bailon's notes also, label paster. Discussion done with patient's nurse. Length of time discussion done with the patient also. Dyspnea is improving. The patient has congestive heart failure, diastolic dysfunction. The shortness of breath has improved. Continue diuresis and fluid restriction. Gastroesophageal reflux disease, dyspepsia, hypertension, hypercholesterolemia, obesity. Gastrointestinal and deep venous thrombosis prophylaxis. Will repeat labs. Will follow up. Sherron Lane MD cc: [id number] TT: 08/10/2016 03:40:21 Confirmation # [id number] Dictation # [id number] dn 08/10/2016 06:44:52 SAMI
--- NOTE | 2016-08-10 08:19 | CP.PCM.PN ---
Subjective - Date & Time of Evaluation Date of Evaluation: 08/10/16 Time of Evaluation: 08:17 - Subjective Subjective: No new complaints. Feeling better. Having breakfast and no shortness of breath Objective - Vital Signs/Intake and Output Vital Signs (last 24 hours): Temp Pulse Resp BP Pulse Ox 97.8 F 61 20 136/75 96 08/09/16 23:35 08/10/16 04:48 08/09/16 23:35 08/09/16 23:35 08/09/16 23:35 Intake and Output: 08/10/16 08/10/16 06:59 18:59 Intake Total 150 Balance 150 - Medications Medications: Current Medications Acetaminophen (Tylenol 325mg Tab) 650 mg PO Q8 PRN PRN Reason: headache Last Admin: 08/09/16 09:51 Dose: 650 mg Albuterol (Ventolin Hfa 90 Mcg/Actuation (8 G)) 1 puff INH RQ4 PRN PRN Reason: Shortness of Breath Last Admin: 08/08/16 21:14 Dose: 1 puff Amlodipine Besylate (Norvasc) 10 mg PO DAILY [facility] Last Admin: 08/09/16 09:52 Dose: 10 mg Carvedilol (Coreg) 12.5 mg PO BID [facility] Last Admin: 08/09/16 17:54 Dose: 12.5 mg Docusate Sodium (Colace) 100 mg PO BID [facility] Last Admin: 08/09/16 17:54 Dose: 100 mg Enalapril Maleate (Vasotec) 20 mg PO BID [facility] Last Admin: 08/09/16 17:56 Dose: 20 mg Enoxaparin Sodium (Lovenox) 40 mg SC DAILY [facility] Last Admin: 08/09/16 09:50 Dose: 40 mg Ferrous Sulfate (Feosol) 325 mg PO DAILY [facility] Last Admin: 08/09/16 09:50 Dose: 325 mg Furosemide (Lasix) 40 mg PO DAILY [facility] Last Admin: 08/09/16 09:52 Dose: 40 mg Methylprednisolone (Solu-Medrol) 10 mg IVP Q12 [facility] Polyethylene Glycol (Miralax) 17 gm PO DAILY [facility] Last Admin: 08/09/16 09:58 Dose: 17 gm Rosuvastatin Calcium (Crestor) 5 mg PO HS [facility] Last Admin: 08/09/16 21:46 Dose: 5 mg - Labs Labs: 08/09/16 06:42 08/09/16 06:42 PT 12.1 SECONDS (9.7-12.2) 08/06/16 09:02 INR 1.1 08/06/16 09:02 APTT 33 SECONDS (21-34) 08/06/16 09:02 - Head Exam Head Exam: NORMOCEPHALIC - Neck Exam Neck Exam: Normal Inspection - Respiratory Exam Respiratory Exam: NORMAL BREATHING PATTERN - Cardiovascular Exam Cardiovascular Exam: REGULAR RHYTHM - Extremities Exam Extremities Exam: Normal Inspection - Neurological Exam Neurological Exam: Oriented x3 Assessment and Plan (1) Chest pain Assessment & Plan: No new chest pain episodes, atypical and work-up negative so far. Further cardiac work up can be done as out patient. Status: Acute (2) Dyspnea Assessment & Plan: A combination of asthma and obesity. Needs to loose weight and diet counselling. Status: Acute (3) Heart failure Assessment & Plan: Diastolic dysfunction. Continue diuretics and maintain electrolyte balance with fluid restriction as out patient. Status: Chronic
[2016-08-10 08:50] VITALS: PULSE 63
[2016-08-10 09:20] VITALS: TEMP 97.9
[2016-08-10 10:04] VITALS: BP 132/86
[2016-08-10] MEDS: Enoxaparin 40 mg Syringe SC SCH (10:04)
[2016-08-10] MEDS: POLYETHYLENE GLYCOL 3350 17 GM/Dose PACKET PO SCH (10:06)
--- NOTE | 2016-08-10 11:15 | PN ---
DATE: 08/10/2016 LOCATION: 668, bed B. This is an 80-year-old female seen for GI consultation as requested by the admitting medical team, as well as the patient herself on 08/09/16, reexamined again today without significant clinical changes complaining of crampy abdominal pain and constipation, but with slight shortness of breath at rare o ccasion now. The entire chart is reviewed, including but not limited to the most recent lab and radiology study re sults, current and the previous medication list, current and the previous medical events, as well as allergies to medication list. Case discussed with the staff at length on the floor. The patient young s still has leukocytosis of 14.8 with low hemoglobin of 10.6, hematocrit 33.6 with low indices highly suggestive of hypochromic microcytic anemia, but with increased blood glucose level at times, with l ow iron studies. PHYSICAL EXAMINATION: GENERAL: An 80-year-old female, appears to be awake, alert, oriented. VITAL SIGNS: Afebrile with pulse of 68, respiratory rate 20-22 with blood pressure of 136/78. HEENT: Showed pale, dry oral mucoid membrane. Nonicteric sclerae. LUNGS: Few scattered crepitations with decreased air entry at bases. HEART: Positive S1 and S2. ABDOMEN: Soft with mild generalized tenderness. No mass or organomegaly. No rebound tenderness or guarding. RECTAL: Deferred due to the patient's clinical presentation. EXTREMITIES: Lower extremities with mild edematous changes. No clubbing or cyanosis. NEUROLOGIC: No reported new neurologic deficits, sensory or motor. IMPRESSION: 1. Change of bowel movement habit of unclear etiology. 2. Reexacerbation of chronic obstructive pulmonary disease with underlying mild congestive heart guillermo lure, improving. 3. Reexacerbation of peptic ulcer disease with nausea and persistent dyspepsia. 4. Anemia, most likely secondary to above. 5. Known history of hypertension, hypothyroidism, peripheral edema syndrome, as well as bronchial as thma with osteoarthritis. SUGGESTION: 1. I agree with your plan. 2. Cancer markers. 3. Guaiac all the stools daily x 3. 4. No aggressive GI workup in the meantime until the patient is more stable clinically. 5. Sectional abdominal and pelvic CAT scan to be kept in mind if the patient's symptoms persist. 6. Lactulose 30 mL p.o. 3 times a day due to the patient's severe constipation. Further recommendation to follow. Susannah Boudreaux MD cc: [id number] TT: 08/10/2016 11:15:20 Confirmation # [id number] Dictation # [id number] yasmin
--- NOTE | 2016-08-10 12:24 | CP.PCM.PN ---
Subjective - Date & Time of Evaluation Date of Evaluation: 08/10/16 Time of Evaluation: 12:23 - Subjective Subjective: Alert, awake, denies sob or chest pains. Objective - Vital Signs/Intake and Output Vital Signs (last 24 hours): Temp Pulse Resp BP Pulse Ox 97.9 F 63 20 132/86 96 08/10/16 09:19 08/10/16 09:19 08/10/16 09:19 08/10/16 10:03 08/10/16 09:19 Intake and Output: 08/10/16 08/10/16 06:59 18:59 Intake Total 150 Balance 150 - Medications Medications: Current Medications Acetaminophen (Tylenol 325mg Tab) 650 mg PO Q8 PRN PRN Reason: headache Last Admin: 08/10/16 10:10 Dose: 650 mg Albuterol (Ventolin Hfa 90 Mcg/Actuation (8 G)) 1 puff INH RQ4 PRN PRN Reason: Shortness of Breath Last Admin: 08/08/16 21:14 Dose: 1 puff Amlodipine Besylate (Norvasc) 10 mg PO DAILY [facility] Last Admin: 08/10/16 10:03 Dose: 10 mg Carvedilol (Coreg) 12.5 mg PO BID [facility] Last Admin: 08/10/16 10:01 Dose: 12.5 mg Docusate Sodium (Colace) 100 mg PO BID [facility] Last Admin: 08/10/16 10:03 Dose: 100 mg Enalapril Maleate (Vasotec) 20 mg PO BID [facility] Last Admin: 08/10/16 10:03 Dose: 20 mg Enoxaparin Sodium (Lovenox) 40 mg SC DAILY [facility] Last Admin: 08/10/16 10:04 Dose: 40 mg Ferrous Sulfate (Feosol) 325 mg PO DAILY [facility] Last Admin: 08/10/16 10:03 Dose: 325 mg Furosemide (Lasix) 40 mg PO DAILY [facility] Last Admin: 08/10/16 10:02 Dose: 40 mg Methylprednisolone (Solu-Medrol) 10 mg IVP Q12 [facility] Last Admin: 08/10/16 10:03 Dose: 10 mg Polyethylene Glycol (Miralax) 17 gm PO DAILY [facility] Last Admin: 08/10/16 10:06 Dose: 17 gm Rosuvastatin Calcium (Crestor) 5 mg PO HS [facility] Last Admin: 08/09/16 21:46 Dose: 5 mg - Labs Labs: 08/09/16 06:42 08/09/16 06:42 PT 12.1 SECONDS (9.7-12.2) 08/06/16 09:02 INR 1.1 08/06/16 09:02 APTT 33 SECONDS (21-34) 08/06/16 09:02 Assessment and Plan - Assessment and Plan (Free Text) Assessment: Patient is seen and examined. Alert, oriented, denies sob or chest pains. D/W DR Lane, discharge plan for today. Advised to follow up in the office in 1 week. CHF core measures done.
--- NOTE | 2016-08-10 12:26 | PCM.HF ---
Heart Failure Core Measure - Heart Failure Ejection Fraction: 40 % or Greater (EF 90%) PAULINA Inhibitor Prescribed: Yes Beta-Jeff Prescribed: Carvedilol Angiotensin II Receptor Jeff Prescribed: No Contraindication/Reason for not providing: on paulina AnticoagulationTherapy for Atrial Fibrillation/Atrialflutter: No Contraindication/Reason for not providing: no afib Aldosterone Antagonist Prescribed: No Contraindication/Reason for not providing: EF>40% Hydralazine Nitrate Prescribed: No Contraindication/Reason for not providing: EF >45% Implantable Cardioverter Defibrillator Therapy: No Contraindication/Reason for not providing: EF >40% Cardiac Resynchronization Therapy Prescribed: No Contraindication/Reason for not providing: Not indicated - Follow up Will be discharged to: Home Follow Up Date (must be within 7 days from discharge): 08/14/16 Follow Up Time: 09:00
--- NOTE | 2016-08-10 14:01 | CP.PCM.PN ---
Subjective - Date & Time of Evaluation Date of Evaluation: 08/10/16 Time of Evaluation: 10:30 - Subjective Subjective: Patient seen and examined at bedside, no acute distress, no acute events overnight. Patient resting comfortably in chair, reports improvement in breathing and no longer complains of dyspnea on exertion. Patient currently denies chest pain, palpitations, nausea, fever, chills, vomiting, headache at this time. Objective - Vital Signs/Intake and Output Vital Signs (last 24 hours): Temp Pulse Resp BP Pulse Ox 97.9 F 63 20 132/86 96 08/10/16 09:19 08/10/16 09:19 08/10/16 09:19 08/10/16 10:03 08/10/16 09:19 Intake and Output: 08/10/16 08/10/16 06:59 18:59 Intake Total 150 Balance 150 - Medications Medications: Current Medications Acetaminophen (Tylenol 325mg Tab) 650 mg PO Q8 PRN PRN Reason: headache Last Admin: 08/10/16 10:10 Dose: 650 mg Albuterol (Ventolin Hfa 90 Mcg/Actuation (8 G)) 1 puff INH RQ4 PRN PRN Reason: Shortness of Breath Last Admin: 08/08/16 21:14 Dose: 1 puff Amlodipine Besylate (Norvasc) 10 mg PO DAILY [facility] Last Admin: 08/10/16 10:03 Dose: 10 mg Carvedilol (Coreg) 12.5 mg PO BID [facility] Last Admin: 08/10/16 10:01 Dose: 12.5 mg Docusate Sodium (Colace) 100 mg PO BID [facility] Last Admin: 08/10/16 10:03 Dose: 100 mg Enalapril Maleate (Vasotec) 20 mg PO BID [facility] Last Admin: 08/10/16 10:03 Dose: 20 mg Enoxaparin Sodium (Lovenox) 40 mg SC DAILY [facility] Last Admin: 08/10/16 10:04 Dose: 40 mg Ferrous Sulfate (Feosol) 325 mg PO DAILY [facility] Last Admin: 08/10/16 10:03 Dose: 325 mg Furosemide (Lasix) 40 mg PO DAILY [facility] Last Admin: 08/10/16 10:02 Dose: 40 mg Methylprednisolone (Solu-Medrol) 10 mg IVP Q12 [facility] Last Admin: 08/10/16 10:03 Dose: 10 mg Polyethylene Glycol (Miralax) 17 gm PO DAILY [facility] Last Admin: 08/10/16 10:06 Dose: 17 gm Rosuvastatin Calcium (Crestor) 5 mg PO HS [facility] Last Admin: 08/09/16 21:46 Dose: 5 mg - Labs Labs: 08/09/16 06:42 08/09/16 06:42 PT 12.1 SECONDS (9.7-12.2) 08/06/16 09:02 INR 1.1 08/06/16 09:02 APTT 33 SECONDS (21-34) 08/06/16 09:02 - Constitutional Appears: Well, Non-toxic, No Acute Distress - Head Exam Head Exam: ATRAUMATIC, NORMAL INSPECTION - Eye Exam Eye Exam: EOMI, Normal appearance - ENT Exam ENT Exam: Normal Exam - Neck Exam Neck Exam: Normal Inspection - Respiratory Exam Respiratory Exam: Clear to Ausculation Bilateral, NORMAL BREATHING PATTERN - Cardiovascular Exam Cardiovascular Exam: REGULAR RHYTHM, +S1, +S2 - Neurological Exam Neurological Exam: Alert, Awake, Oriented x3 - Skin Skin Exam: Dry, Normal Color, Warm Assessment and Plan (1) Asthma Assessment & Plan: -Patient stable from pulm standpoint -can be discharged with Inhaled steroid, nebulizer rx Status: Acute
--- NOTE | 2016-08-11 11:04 | DS ---
CHIEF COMPLAINT: Chest pain, shortness of breath. HISTORY OF PRESENT ILLNESS: The patient is an 80-year-old female with a past medical history of congestive heart failure, hypertension, GERD, dyspepsia. Came to the Emergency Room for evaluation of gradual onset of dizziness, epigastric abdominal pain, shortness of breath. No fever, no chills. We admitted the patient. Called cardiology consult with Dr. Bailon, pulmonary consult with Dr. Antonio Flaherty. According to army officer, pain looks like noncardiac. The patient got tapering dose of steroids, improved, discharged home with followup with primary care physician, army officer and asbestos wire finisher. PAST MEDICAL HISTORY: Obesity, arthritis, asthma, bronchitis, gastritis, cholelithiasis, hypertension, hyperthyroidism, peripheral vascular disease, GERD , dyspepsia, history of peptic ulcer. FAMILY HISTORY: Father and mother noncontributory. HABITS: Never smoked, no drugs, no ethanol. REVIEW OF SYSTEMS: The patient was seen and examined on the bedside, looks comfortable. No nausea, vomiting, diarrhea. No hematuria, no hematochezia. Shortness of breath is better. Chest pain got better . KRISTAL offered, patient refused, wanted to go home. Does not look like in acute distress. No acute events overnight. No longer complaining of dyspnea on exertion. Denies palpitation, nausea, vomiting, chills. PHYSICAL EXAMINATION: VITAL SIGNS: Temperature 97.9, pulse 63, respiratory rate 20, blood pressure 130/86, pulse oximetry 96%. HEENT: Head normocephalic, atraumatic. Eyes, PERRLA. Extraocular muscles intact. Conjunctivae pink. Eyelids unremarkable. Nose patent. Mucous membranes moist. NECK: Supple. No carotid bruit, no JVD, no thyromegaly. CHEST: Bilaterally symmetrical. HEART: S1, S2 positive. LUNGS: Clear to auscultation. ABDOMEN: Soft. Bowel sounds positive. No organomegaly. EXTREMITIES: No edema, no cyanosis. NEUROLOGIC: The patient is awake, alert. Moving all 4 extremities. No focal deficits. MEDICATIONS: Reviewed by me. LABORATORIES: Reviewed by me. ASSESSMENT AND PLAN: The patient is my private patient, history of hypertension , hypercholesterolemia, obesity, noncompliant, asthma, chronic obstructive pulmonary disease, gastroesophageal reflux disease, dyspepsia. Came with chest pain. Seen by the army officer. According to Dr. Bailon, chest pain looks like noncardiac epigastric, maybe musculoskeletal. The patient was given proton pump inhibitors, improved. Exacerbation of chronic obstructive pulmonary disease, asthma. Seen by the asbestos wire finisher, got tapering dose of steroids, inhalers, physical therapy. Plan was to send the patient for rehab, either to [facility] or [facility], but patient refused all type of rehabs. She wants to go home. Education done, but she said she worked in [facility] . She knows those rehab places and she does not want to go. Discharged patient home by nurse practitioner. Prescriptions of medications given. Will follow up with Dr. Lane's office, asbestos wire finisher, army officer as outpatient. Repeat labs. Will follow up. Sherron Lane MD cc: [id number] TT: 08/11/2016 11:04:31 en MTDD
--- NOTE | 2016-08-11 20:53 | CON ---
DATE: 08/09/[address] Susannah Boudreaux to Dr. Sherron Lane. I was called for GI consultation by the admitting medical team as well as the patient on request. Th e patient is seen and fully examined for GI consultation on 08/09/2016. The entire chart is reviewed, including but not limited to the most recent lab and radiology study results, current and previous m edication lists, current and the previous medical events as well as allergies to medication list and all the available current and the previous medical records. Case was discussed at length with the st aff on the floor as well as the patient herself. HISTORY OF PRESENT ILLNESS: This is an 80-year-old female, very well known case for me, who was admi tted to the hospital with intermittent periods of dyspnea on exertion, mainly slight chest tightness, postprandial abdominal distention with increased gas production as well as periods of dyspepsia and nausea. The patient also reported recent history of change of bowel movement habits, but no reported active bleeding. After being admitted to the hospital, the patient was found to have low hemoglobin and hematocrit reyna n her normal level with mild underlying electrolyte imbalance as well as hypoalbuminemia, hypoprotein emia than her usual level. No reported active bleeding. PAST MEDICAL HISTORY: Including but not limited to: 1. Hypertension. 2. Diabetes mellitus. 3. Hyperlipidemia. 4. Bronchitis with underlying diagnosis of bronchial asthma before. 5. Peptic ulcer disease. 6. Diverticulosis with areas of diverticulitis in the past. ALLERGIES TO MEDICATION: Unclear. CURRENT MEDICATIONS: Medication lists were reviewed. FAMILY HISTORY: Noncontributory. SOCIAL HISTORY: No known recent history of cigarette smoking or alcohol intake. PHYSICAL EXAMINATION: GENERAL: An 80-year-old female, appears to be awake, alert, oriented. VITAL SIGNS: Stable vital signs, but with respiratory rate 20-22, afebrile with pulse of 84, blood p ressure of 138/84. HEENT: Showed pale, dry mucoid membrane, nonicteric sclerae. LUNGS: Scattered crepitations with scattered rhonchi as well as a few rales bilaterally. LYMPH NODES: No lymph mass or lymphadenopathy. HEART: Positive S1 and S2. ABDOMEN: Soft, mildly obese with mild distention and generalized tenderness. Bowel sounds are hypoa ctive. No mass or organomegaly. No rebound tenderness or guarding. RECTAL: Deferred due to patient's cardiac status. EXTREMITIES: With mild lower extremity edematous changes. No clubbing or cyanosis. NEUROLOGIC: No reported new focal neurological deficits, sensory or motor. IMPRESSION: 1. Congestive heart failure, improving clinically. 2. Re-exacerbation of peptic ulcer disease. 3. Known history of diverticulosis with periods of diverticulitis. 4. Low hemoglobin and hematocrit than her normal status, rule out gastrointestinal blood loss, upper versus lower versus anemia secondary to chronic disease. SUGGESTION: 1. Agree with your plan. 2. Guaiac all the stools daily x 3. 3. Abdominal ultrasound with attention to the biliary tree and pancreas. 4. Antireflux measures. 5. Proton pump inhibitors. 6. No need for aggressive GI workup in the meantime due to the patient's cardiac and pulmonary statu s. Further recommendations to follow. Thank you for letting me participate in your patient's case management. Susannah Boudreaux MD cc: [id number] TT: 08/11/2016 20:53:09 Confirmation # [id number] Dictation # [id number]
== END 2016-08-10 16:00 | disposition home or self-care (01) ==
LOC: C.ER 07:46 → C.9E 10:25 → UNDOADMOB 10:25 → C.6T 16:02 → C.9E 16:02 → INTOOBSV 08-08 16:24 → OBSVTOIN 08-08 16:24 → UNDODISIN 08-10 16:00
PROVIDERS: ADMIT Internal Medicine; ATTEND Internal Medicine
DX: J44.1 Chronic obstructive pulmonary disease with (acute) exacerbation (principal); I50.43 Acute on chronic combined systolic (congestive) and diastolic (congestive) heart failure; J45.901 Unspecified asthma with (acute) exacerbation; I24.9 Acute ischemic heart disease, unspecified; Z68.42 Body mass index [BMI] 45.0-49.9, adult; K27.9 Peptic ulcer, site unspecified, unspecified as acute or chronic, without hemorrhage or perforation; E83.51 Hypocalcemia; I11.0 Hypertensive heart disease with heart failure; E87.6 Hypokalemia; D50.9 Iron deficiency anemia, unspecified; E66.9 Obesity, unspecified; E78.00 Pure hypercholesterolemia, unspecified; R51 Headache; K21.9 Gastro-esophageal reflux disease without esophagitis; K59.00 Constipation, unspecified; H54.7 Unspecified visual loss; Z87.01 Personal history of pneumonia (recurrent)
CPT/HCPCS: 36415; 71010; 80048; 80053; 80061; 81001; 82607; 82746; 83036; 83540; 83550; 83690; 83880; 84443; 84484; 85025; 85027; 85610; 85730; 93005; 94640; 96372; 96374; 96375; 96376; 97116; 97162; 97530; 99285; G0378; G8978; G8979; J1650; J1940; J2405; J2920

== ENCOUNTER 2017-07-31 06:52 | Day surgery (SDC) | payer MEDICARE ==
[2017-07-30 13:33] VITALS: BMI 46.1
[2017-07-31] MEDS ORDERED: Propofol 10 mg/ml Inj (20 ML) ONE (09:15)
[2017-07-31] MEDS ORDERED: Lidocaine Hydrochloride 5 ML INJ ONE (09:15)
--- NOTE | 2017-07-31 09:18 | CP.SDSHP ---
Same Day Surgery H & P - History Proposed Procedure: EGD Pre-Op Diagnosis: SEE NOTES - Previous Medical/Surgical History Cardiac: Hypertension Pulmonary: Asthma Endocrine/Metabolic: Thyroid Disease, Diabetes, Other Neuro: Backaches Misc: Other Pain: 4.Moderate Pain - Allergies Allergies: Allergies FISH Allergy (Verified 08/06/16 08:06) RASH seasonal Allergy (Uncoded 08/06/16 08:06) - Physical Exam General Appearance: N Vital Signs: Vital Signs 07/31/17 08:16 Temperature 97.5 F L Pulse Rate 74 Respiratory 19 Rate Blood Pressure 156/89 H O2 Sat by Pulse 97 Oximetry Mental Status: Alert & Oriented x3 Neuro: WNL Heart: Other Lungs: Other GI: Other - {Optional Preform as Required} Breast: WNL Abdomen: Other Rectal: Other Integument: WNL : WNL ENT: WNL - Impression Pt. Evaluated Today:Candidate for Anesthesia & Procedure: Yes - Date & Time Time: 09:17 Short Stay Discharge - Short Stay Discharge Admitting Diagnosis/Reason for Visit: FUNCTIONAL DYSPEPSIA,NAUSEA Disposition: HOME/ ROUTINE
[2017-07-31 09:44] VITALS: TEMP 97.9
[2017-07-31] MEDS ORDERED: Belladonna-Phenobarbital PO ONE (09:55)
[2017-07-31 10:20] VITALS: O2SAT 98
[2017-07-31 10:31] VITALS: BP 160/90; PULSE 65; RESP 18
== END 2017-07-31 11:00 | disposition home or self-care (01) ==
LOC: C.ENDO 06:52
PROVIDERS: ATTEND Specialist
DX: K30 Functional dyspepsia (principal); R11.0 Nausea; K44.9 Diaphragmatic hernia without obstruction or gangrene; B37.81 Candidal esophagitis; E11.9 Type 2 diabetes mellitus without complications; I10 Essential (primary) hypertension; J45.909 Unspecified asthma, uncomplicated; K29.70 Gastritis, unspecified, without bleeding
CPT/HCPCS: 43239; 88305; 88342; J2001; J2704

== ENCOUNTER 2018-06-04 11:26 | Observation (INO) | payer MEDICARE ==
[2018-06-04 11:33] VITALS: BMI 44.5
[2018-06-04] MEDS ORDERED: Aspirin 325 mg EC Tablets PO STA (11:52)
[2018-06-04 12:44] LABS: BASO # 0.1 K/uL (0.0-0.2); BASO % 0.7 % (0.0-2.0); EOS # 0.1 K/uL (0.0-0.7); EOS % 1.2 % (0.0-4.0); HEMOGLOBIN 11.2 g/dL (11.0-16.0); LYMPH # 2.4 K/uL (1.0-4.3); LYMPH % 26.6 % (20.0-40.0); MEAN CORPUSCULAR HEMOGLOBIN 27.1 pg (27.0-31.0); MEAN CORPUSCULAR HGB CONC 32.4 g/dL (33.0-37.0); MEAN PLATELET VOLUME 8.2 fL (7.2-11.7); MONO # 0.5 K/uL (0.0-0.8); MONO % 5.8 % (0.0-10.0); NEUT % 65.7 % (50.0-75.0); NRBC % 0.1 % (0.0-2.0); RBC 4.13 Mil/uL (3.80-5.20); RED CELL DISTRIBUTION WIDTH 14.8 % (11.5-14.5); WHITE BLOOD COUNT 9.1 K/uL (4.8-10.8)
[2018-06-04 12:45] LABS: MEAN CELL VOLUME 83.7 fL (81.0-99.0)
[2018-06-04 12:52] LABS: PROTHROMBIN TIME 11.4 SECONDS (9.7-12.2)
[2018-06-04 14:01] LABS: BLOOD UREA NITROGEN 14 mg/dL (7-17); CALCIUM 9.2 mg/dl (8.6-10.4); GFR NON-AFRICAN AMERICAN > 60
[2018-06-04 14:12] LABS: ALB/GLOB RATIO 1.2 (1.0-2.1); ALBUMIN 4.1 g/dL (3.5-5.0); ALT/SGPT 9 U/L (9-52); AST/SGOT 47 U/L (14-36)
[2018-06-04 14:13] LABS: CK-MB 1.35 ng/mL (0.0-3.38)
--- NOTE | 2018-06-04 14:30 | C.PDOC ---
History Of Present Illness 82 year old female presents to ED with complaint of chest pain that began yesterday. Patient states that she has also been experiencing SOB and episodes of diarrhea. Patient denies any nausea or vomiting. Time Seen by Provider: 06/04/18 11:38 Chief Complaint (Nursing): Chest Pain History Per: Patient History/Exam Limitations: no limitations Onset/Duration Of Symptoms: Days (1) Current Symptoms Are (Timing): Still Present Quality: "Pain" Associated Symptoms: Other (SOB and diarrhea). denies: Nausea Past Medical History Reviewed: Historical Data, Nursing Documentation, Vital Signs Vital Signs: Last Vital Signs Temp 97.7 F 06/04/18 11:37 Pulse 66 06/04/18 12:34 Resp 12 06/04/18 12:34 BP 182/90 H 06/04/18 12:34 Pulse Ox 97 06/04/18 12:34 - Medical History PMH: Arthritis, Asthma, Bronchitis, CHF, COPD, Gastritis, Gall Bladder Disease, HTN, Hypothyroidism, Peripheral Edema, Pneumonia Denies: Chronic Kidney Disease Surgical History: Cholecystectomy - [facility] Procedures CLOSED ENDOSCOPIC BIOPSY OF LARGE INTESTINE (12/10/13) ESOPHAGOGASTRODUODENOSCOPY [EGD] W/CLOSED BIOPSY (12/10/13) Family History: States: Unknown Family Hx - Social History Hx Tobacco Use: No Hx Alcohol Use: No Hx Substance Use: No - Immunization History Hx Tetanus Toxoid Vaccination: No Hx Influenza Vaccination: No Hx Pneumococcal Vaccination: Yes Review Of Systems Constitutional: Negative for: Fever, Chills, Weakness Cardiovascular: Positive for: Chest Pain. Negative for: Palpitations Respiratory: Positive for: Shortness of Breath. Negative for: Cough Gastrointestinal: Positive for: Diarrhea. Negative for: Nausea, Vomiting Neurological: Negative for: Weakness, Numbness, Dizziness Physical Exam - Physical Exam Appears: Well, Non-toxic, No Acute Distress Skin: Normal Color, Warm, Dry Head: Atraumatic, Normacephalic Neck: Normal ROM, Supple Chest: Symmetrical, No Deformity Cardiovascular: Rhythm Regular, No Murmur Respiratory: No Accessory Muscle Use, No Rales, No Rhonchi, No Wheezing Gastrointestinal/Abdominal: Soft, No Tenderness Extremity: Capillary Refill (<2 seconds), No Other (some pitting edema) Extremity: Bilateral: Atraumatic Pulses: Left Radial: Normal, Right Radial: Normal Neurological/Psych: Oriented x3, Normal Speech, Normal Cognition ED Course And Treatment - Laboratory Results Result Diagrams: 06/04/18 12:32 06/04/18 13:40 Lab Results: PT 11.4 SECONDS (9.7-12.2) 06/04/18 12:32 INR 1.0 06/04/18 12:32 APTT 27 SECONDS (21-34) 06/04/18 12:32 Troponin I < 0.0120 ng/mL (0.00-0.120) 06/04/18 13:40 Total Bilirubin 0.6 mg/dL (0.2-1.3) 06/04/18 13:40 AST 47 U/L (14-36) H 06/04/18 13:40 ALT 9 U/L (9-52) D 06/04/18 13:40 Alkaline Phosphatase 38 U/L (38-126) 06/04/18 13:40 Total Protein 7.4 g/dL (6.3-8.3) 06/04/18 13:40 Albumin 4.1 g/dL (3.5-5.0) 06/04/18 13:40 Globulin 3.3 gm/dL (2.2-3.9) 06/04/18 13:40 Albumin/Globulin Ratio 1.2 (1.0-2.1) 06/04/18 13:40 ECG: Interpreted By Me, Viewed By Me ECG Rhythm: R BBB ECG Interpretation: No Changes From Prior (not changed from July 2016) Interpretation Of ECG: T-wave abnormalilty in the lateral and anterior leads. Rate From EC O2 Sat by Pulse Oximetry: 97 - Other Rad CXR X-Ray: Interpreted by Me, Viewed By Me Interpretation: Accession No. : [id number]. Patient Name / ID : CRIS Og / [id number]. Exam Date : 06/04/2018 11:52:24 ( Approved ). Study Comment : Sex / Age : F / 82Y. Creator : Rola Augustin. Dictator : Rola Augustin. Crop Quantitative Geneticist : Rate Examiner : Rola Augustin. Approver2 : Report Date : 06/04/2018 15:30:25. My Comment : . Date of service: 06/04/2018. PROCEDURE: CHEST RADIOGRAPH, 1 VIEW. HISTORY: SOB, CP. COMPARISON: 08/06/2016. FINDINGS: LUNGS: Shallow lung volumes. The left hemidiaphragm is less clearly delineated than the prior study in part this is likely due to hypoventilation. And probable summation of soft tissues in this patient with large body habitus. However additional concomitant pathology at the left lung base including a small left pleural effusion cannot be excluded. PLEURA: No pneumothorax seen. Small left pleural effusion cannot be excluded. CARDIOVASCULAR: No aortic atherosclerotic calcification present. Cardiomegaly-similar. Probable mild pulmonary venous congestion. -accentuated with crowding/hypoventilation. OSSEOUS STRUCTURES: Thoracic spondylosis. Bilateral shoulder arthrosis. VISUALIZED UPPER ABDOMEN: Normal. OTHER FINDINGS: None. IMPRESSION: Hypoventilation. Limited visualization/discern mint of all of left hemidiaphragm specially laterally small left pleural ef fusion here possible. Summation of soft tissues another consideration. Cardiomegaly and probable mild pulmonary venous congestion Progress Note: EKG and CXR ordered for patient. Labs ordered with troponin and creatine phosphokinase for patient. Patient given aspirin. Called (PMD). Accepted patient to [facility] for observation. Dr. Palomares called for cardiology consult. Disposition - Disposition Disposition: HOSPITALIZED Disposition Time: 14:34 Condition: FAIR - Clinical Impression Clinical Impression: Chest pain - PA / HOME SERVICE DIRECTOR / Resident Statement MD/DO has reviewed & agrees with the documentation as recorded. (Miri Ward) - Scribe Statement The provider has reviewed the documentation as recorded by the Scribe (Miri Ward) All medical record entries made by the Scribe were at my direction and personally dictated by me. I have reviewed the chart and agree that the record accurately reflects my personal performance of the history, physical exam, medical decision making, and the department course for this patient. I have also personally directed, reviewed, and agree with the discharge instructions and disposition. Decision To Admit - Pt Status Changed To: Hospital Disposition Of: Observation - . Bed Request Type: Telemetry Admitting Physician: Sherron Lane Patient Diagnosis: Chest pain
--- NOTE | 2018-06-04 15:33 | RAD ---
Date of service: 06/04/2018 PROCEDURE: CHEST RADIOGRAPH, 1 VIEW HISTORY: SOB, CP COMPARISON: 08/06/2016 FINDINGS: LUNGS: Shallow lung volumes. The left hemidiaphragm is less clearly delineated than the prior study in part this is likely due to hypoventilation. And probable summation of soft tissues in this patient with large body habitus. However additional concomitant pathology at the left lung base including a small left pleural effusion cannot be excluded. PLEURA: No pneumothorax seen. Small left pleural effusion cannot be excluded. CARDIOVASCULAR: No aortic atherosclerotic calcification present. Cardiomegaly-similar. Probable mild pulmonary venous congestion. -accentuated with crowding/hypoventilation. OSSEOUS STRUCTURES: Thoracic spondylosis. Bilateral shoulder arthrosis. VISUALIZED UPPER ABDOMEN: Normal. OTHER FINDINGS: None. IMPRESSION: Hypoventilation. Limited visualization/discern mint of all of left hemidiaphragm specially laterally small left pleural effusion here possible. Summation of soft tissues another consideration. Cardiomegaly and probable mild pulmonary venous congestion
[2018-06-04 15:47] VITALS: RESP 20
[2018-06-04 20:52] LABS: CK-MB 1.13 ng/mL (0.0-3.38)
[2018-06-05 01:54] LABS: IRON 40 ug/dL (37-170)
[2018-06-05 01:56] LABS: HDL CHOLESTEROL 36 mg/dL (30-70)
[2018-06-05 02:03] LABS: % IRON SATURATION 17 (20-55); TOTAL IRON BINDING CAPACITY 242 ug/dL (250-450)
[2018-06-05 02:06] LABS: LDL CHOLESTEROL 81 mg/dL (0-129)
[2018-06-05 02:09] LABS: BLOOD UREA NITROGEN 15 mg/dL (7-17); GFR NON-AFRICAN AMERICAN 60
[2018-06-05 02:11] LABS: CK-MB 1.08 ng/mL (0.0-3.38)
[2018-06-05 03:05] LABS: FOLATE 13.7 ng/mL
--- NOTE | 2018-06-05 05:05 | HP ---
The patient was seen and examined on 06/04/2018.this h/p is for 06/04/18 CHIEF COMPLAINT: Chest pain. HISTORY OF PRESENT ILLNESS: Ms. Jacqui Rasmussen is an 82-year-old female who came to the emergency department complaining of chest pain that began yesterday. The patient states that she has also been experiencing shortness of breath, episode of diarrhea. The patient denies any nausea or vomiting at this moment. No abdominal pain. No cough. No hematuria. No hematochezia. We admitted the patient, did cardiac enzymes, called cardiology consult. PAST MEDICAL HISTORY: Arthritis, asthma, bronchitis, congestive heart failure, COPD, gastritis, gallbladder disease, hypertension, hypothyroidism, peripheral edema, pneumonia, cholecystectomy. HABITS: No smoking. No drugs. No ethanol. REVIEW OF SYSTEMS: The patient was seen and examined at the bedside, looking comfortable. At that moment no shortness of breath, no chest pain, no nausea or vomiting or diarrhea. At that moment, no headache or dizziness. No hematuria. No hematochezia. PHYSICAL EXAMINATION: VITAL SIGNS: Temperature 97.9, pulse 56, respiratory rate 20, blood pressure 182/90, pulse oximetry 97%. HEENT: Head: Normocephalic, atraumatic. Eyes: PERRLA. Extraocular muscles are intact. Conjunctivae clear. Nose: Patent. NECK: Supple. No carotid bruit. No JVD or thyromegaly. No chest pain. CHEST: Bilaterally symmetrical. HEART: S1 and S2 positive. LUNGS: Clear to auscultation. ABDOMEN: Soft. Bowel sounds present. No organomegaly. EXTREMITIES: No edema. No cyanosis. NEUROLOGIC: The patient is awake, alert. Follows simple commands. LABORATORY DATA: White blood cell 9.1, hemoglobin 11.2, hematocrit 34.2, platelets 262. Sodium 137, potassium 4.9, BUN 40, creatinine 0.7, glucose 81. ASSESSMENT AND PLAN: Ms. Jacqui Rasmussen is an 82-year-old female with multiple medical problems, came with chest pain. Cardiology consult called. Cardiac enzymes x3 ordered. The patient has history of arthritis, asthma, bronchitis, congestive heart failure, chronic obstructive pulmonary disease, gastritis, cholelithiasis, hypertension. Even right now, blood pressure is not very well, I restarted enalapril; hypothyroidism, I started levothyroxine. History of pneumonia, peripheral vascular disease, history of cholecystectomy. We will continue present treatment, gastrointestinal and deep vein thrombosis prophylaxis, repeat labs. We will follow up. Sherron Lane MD SAMI
[2018-06-05] MEDS: Levothyroxine 50 MCG TAB PO SCH (06:14)
[2018-06-05 07:17] LABS: SQUAMOUS EPITHIAL 3 /hpf (0-5); URINE BACTERIA RARE (<OCC); URINE BILIRUBIN NEGATIVE (NEGATIVE); URINE BLOOD NEGATIVE (NEGATIVE); URINE CLARITY Clear (Clear); URINE COLOR Yellow (YELLOW); URINE GLUCOSE (UA) NORMAL (Normal); URINE HYALINE CAST 0-2 /lpf (0-2); URINE LEUKOCYTE ESTERASE NEG Leu/uL (Negative); URINE PROTEIN NEGATIVE (NEGATIVE); URINE UROBILINOGEN NORMAL mg/dL (0.2-1.0)
[2018-06-05 07:45] LABS: MEAN CELL VOLUME 84.1 fL (81.0-99.0); MEAN CORPUSCULAR HGB CONC 32.1 g/dL (33.0-37.0); MEAN PLATELET VOLUME 8.1 fL (7.2-11.7); RBC 4.06 Mil/uL (3.80-5.20); RED CELL DISTRIBUTION WIDTH 14.7 % (11.5-14.5); WHITE BLOOD COUNT 8.6 K/uL (4.8-10.8)
[2018-06-05] MEDS: Pantoprazole 40 mg EC Tab PO SCH (09:29)
[2018-06-05] MEDS: Enoxaparin 40 mg Syringe SC SCH (09:30)
[2018-06-05] MEDS: Calcium Carbonate 500 mg Chewable Antacid Tab PO SCH ×2 (13:21→17:43)
[2018-06-05 20:25] LABS: CK-MB 0.94 ng/mL (0.0-3.38)
[2018-06-06] MEDS: Levothyroxine 50 MCG TAB PO SCH (06:12)
[2018-06-06] MEDS: Fluticasone-Vilanterol 200/25mcg Diskus INH SCH (07:34)
[2018-06-06] MEDS: Pantoprazole 40 mg EC Tab PO SCH (09:58)
[2018-06-06] MEDS ORDERED: Influenza Vaccine 60 mcg/0.5 mL SYR (4YR UP) IM ONE (10:00)
[2018-06-06] MEDS ORDERED: Pneumococcal 23-Valent Vaccine IM ONE (10:00)
[2018-06-06] MEDS: Enoxaparin 40 mg Syringe SC SCH (10:00)
--- NOTE | 2018-06-06 10:56 | RAD ---
Date of service: 06/06/2018 PROCEDURE: Left Knee Radiographs. HISTORY: Pain. COMPARISON: None. FINDINGS: BONES: No acute fracture. Proliferative hypertrophic changes emanating from the femoral condyle and tibial plateau regions. JOINTS: Degenerative changes, mild primarily affecting lateral compartment and patellofemoral joint. JOINT EFFUSION: None. OTHER FINDINGS: None. IMPRESSION: No acute findings related to/ accounting for the clinical presentation. Additional benign and/or incidental findings described above.
[2018-06-06] MEDS: Calcium Carbonate 500 mg Chewable Antacid Tab PO SCH ×2 (11:20→18:00)
--- NOTE | 2018-06-06 15:28 | CP.PCM.CON ---
History of Present Illness - History of Present Illness History of Present Illness: 82 years old female with history of HTN. Hyperlipidemia, hypothyroidism who came to hospital with complain of chest pain. Review of Systems - Cardiovascular Cardiovascular: Chest Pain Past Patient History - Infectious Disease Hx of Infectious Diseases: None - Past Medical History & Family History Past Medical History?: Yes - Past Social History Smoking Status: Never Smoked - CARDIAC Hx Congestive Heart Failure: Yes Hx Hypertension: Yes - PULMONARY Hx Chronic Obstructive Pulmonary Disease (COPD): Yes - NEUROLOGICAL Hx Neurological Disorder: Yes Hx Dizziness: Yes - HEENT Hx HEENT Problems: Yes Hx Epistaxis: Yes Hx Glaucoma: Yes Other/Comment: 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 wear glasses for poor vision - RENAL Hx Chronic Kidney Disease: No - ENDOCRINE/METABOLIC Hx Hypothyroidism: Yes - HEMATOLOGICAL/ONCOLOGICAL Hx Blood Disorders: Yes Hx Blood Transfusions: Yes (x 2) Hx Blood Transfusion Reaction: No - INTEGUMENTARY Hx Dermatological Problems: No - MUSCULOSKELETAL/RHEUMATOLOGICAL Hx Arthritis: Yes - GASTROINTESTINAL Hx Gall Bladder Disease: Yes Hx Gastritis: Yes - GENITOURINARY/GYNECOLOGICAL Hx Genitourinary Disorders: No - PSYCHIATRIC Hx Substance Use: No - SURGICAL HISTORY Hx Cholecystectomy: Yes - ANESTHESIA Hx Anesthesia: Yes Hx Anesthesia Reactions: No Hx Malignant Hyperthermia: No Meds Allergies/Adverse Reactions: Allergies Allergy/AdvReac Type Severity Reaction Status Date / Time FISH Allergy RASH Verified 06/04/18 11:29 seasonal Allergy Uncoded 06/04/18 11:29 - Medications Medications: Current Medications Calcium Carbonate (Tums) 500 mg PO BID COUNT INCLUDES THE [facility] Last Admin: 06/06/18 11:20 Dose: 500 mg Carvedilol (Coreg) 12.5 mg PO BID COUNT INCLUDES THE [facility] Last Admin: 06/06/18 10:05 Dose: 12.5 mg Dicyclomine HCl (Bentyl) 10 mg PO BID COUNT INCLUDES THE [facility] Last Admin: 06/06/18 10:28 Dose: 10 mg Diphenhydramine HCl (Benadryl) 25 mg PO HS PRN PRN Reason: Insomnia Last Admin: 06/05/18 21:46 Dose: 25 mg Enalapril Maleate (Vasotec) 20 mg PO BID COUNT INCLUDES THE [facility] Last Admin: 06/06/18 09:58 Dose: 20 mg Enoxaparin Sodium (Lovenox) 40 mg SC DAILY COUNT INCLUDES THE [facility] Last Admin: 06/06/18 10:00 Dose: 40 mg Fluticasone/Vilanterol (Breo Ellipta 200-25 Mcg Inh) 1 puff INH RQD COUNT INCLUDES THE [facility] Last Admin: 06/06/18 07:34 Dose: 1 puff Home Med (Cholecalciferol [Vitamin D 1000 Iu]) 50,000 iu PO QWK COUNT INCLUDES THE [facility] Levothyroxine Sodium (Synthroid) 50 mcg PO DAILY@0630 COUNT INCLUDES THE [facility] Last Admin: 06/06/18 06:12 Dose: 50 mcg Pantoprazole Sodium (Protonix Ec Tab) 40 mg PO DAILY COUNT INCLUDES THE [facility] Last Admin: 06/06/18 09:58 Dose: 40 mg Rosuvastatin Calcium (Crestor) 5 mg PO HS COUNT INCLUDES THE [facility] Last Admin: 06/05/18 21:46 Dose: 5 mg Spironolactone (Aldactone) 25 mg PO DAILY COUNT INCLUDES THE [facility] Last Admin: 06/06/18 09:58 Dose: 25 mg Physical Exam - Head Exam Head Exam: NORMOCEPHALIC - Neck Exam Neck exam: Positive for: Normal Inspection - Respiratory Exam Respiratory Exam: NORMAL BREATHING PATTERN - Cardiovascular Exam Cardiovascular Exam: REGULAR RHYTHM - GI/Abdominal Exam GI & Abdominal Exam: Normal Bowel Sounds - Extremities Exam Extremities exam: Positive for: normal inspection - Neurological Exam Neurological exam: Alert, Oriented x3 Results - Vital Signs Recent Vital Signs: Last Vital Signs Temp 97.8 F 06/06/18 07:50 Pulse 63 06/06/18 07:50 Resp 20 06/06/18 07:50 BP 135/88 06/06/18 10:05 Pulse Ox 99 06/06/18 07:50 - Labs Result Diagrams: 06/05/18 07:35 06/05/18 01:29 Labs: Laboratory Results - last 24 hr 06/05/18 19:54 Total Creatine Kinase 67 CK-MB (Mass) 0.94 Troponin I < 0.0120 Assessment & Plan (1) Hypertension Assessment and Plan: BP controlled, continue current care. Salt restricted diet with fluid restriction. Echocardiogram to assess LV function. Status: Acute (2) Chest pain Assessment and Plan: Multiple risk factors for CAD, Cardiac work-up negative so far. Continue monitoring. Status: Acute (3) Hyperlipidemia Assessment and Plan: Continue lipid lowering agents. Status: Acute
[2018-06-06 19:57] LABS: CK-MB 1.05 ng/mL (0.0-3.38)
--- NOTE | 2018-06-06 22:09 | CARD ---
APPROVED REPORT Date of service: 06/04/2018 EKG Measurement Heart [id number] CO [id number] <Conclusion> Normal sinus rhythm with sinus arrhythmia Left axis deviation Right bundle branch block T wave abnormality, consider lateral ischemia Abnormal ECG
--- NOTE | 2018-06-07 02:24 | PN ---
DATE: 06/06/2018 SUBJECTIVE: The patient was seen and examined at bedside on 06/06/2018. Looking comfortable. No fever. No chills. No hematuria or hematochezia. No headache. No dizziness. No chest pain. No palpitations. Just complaining of knee pain once in a while. PHYSICAL EXAMINATION: VITAL SIGNS: The patient is afebrile. Pulse 63, respiratory rate 20, blood pressure 135/88, pulse oximetry 99. HEENT: Head is normocephalic and atraumatic. Eyes PERRLA. Extraocular muscles are intact. Conjunctivae clear. Nose patent. Mucous membranes are moist. NECK: Supple. No carotid bruits. No JVD or thyromegaly. CHEST: Bilaterally symmetrical. HEART: S1 and S2 positive. LUNGS: Clear to auscultation. ABDOMEN: Soft. Bowel sounds positive. No organomegaly. EXTREMITIES: No edema. No cyanosis. NEUROLOGIC: The patient is awake and alert. Moving all four extremities. No focal deficits. LABORATORY DATA: White blood cell 8.9, hemoglobin 11, hematocrit 34.2, platelets 259. Sodium 140, potassium 3.7, BUN 15, creatinine 0.9, glucose 92. ASSESSMENT AND PLAN: Ms. Jacqui Rasmussen is an 82-year-old female with hypertension, blood pressure is under control. Continue same medication, lifestyle modification. Echocardiogram to assess left ventricular function and chest pain. Multiple risk factors for coronary artery disease, cardiac workup negative so far as per credit card clerk. Continue monitoring the status, hypercholesterolemia. The patient is complaining about knee pain, x-ray done, reviewed by me. No acute findings related to accounting for the clinical presentation. Has just arthritis, obesity, gastrointestinal and deep venous thrombosis prophylaxis. Repeat labs. We will follow up. If Cardiology is clear, we will discharge the patient. Sherron Lane MD
[2018-06-07 05:06] VITALS: O2SAT 97
[2018-06-07] MEDS: Levothyroxine 50 MCG TAB PO SCH (05:49)
[2018-06-07 07:40] VITALS: BP 145/76; PULSE 61; TEMP 97.8
[2018-06-07] MEDS: Fluticasone-Vilanterol 200/25mcg Diskus INH SCH (08:25)
[2018-06-07] MEDS: Pantoprazole 40 mg EC Tab PO SCH (10:03)
[2018-06-07] MEDS: Calcium Carbonate 500 mg Chewable Antacid Tab PO SCH (10:04)
[2018-06-07] MEDS: Enoxaparin 40 mg Syringe SC SCH (10:04)
--- NOTE | 2018-06-07 13:08 | PN ---
DATE: 06/05/2018 SUBJECTIVE: The patient was seen and examined at the bedside on 06/05/2018. The patient is seen in the bed, looking comfortable. No fever, no chills, no hematuria, no hematochezia, no headache, no dizziness, no chest pain, no palpitations, only complaining about knee pain. PHYSICAL EXAMINATION: VITAL SIGNS: Temperature 98.2, pulse 67, blood pressure 155/73, respiratory rate 20. HEENT: Head normocephalic, atraumatic. Eyes, PERRLA. Extraocular muscles intact. Conjunctivae clear. Nose patent. Mucous membrane moist. NECK: Supple, no carotid bruits. No JVD or thyromegaly. CHEST: Bilaterally symmetrical. CARDIOPULMONARY: S1 and S2 positive. LUNGS: Clear to auscultation. ABDOMEN: Soft. Bowel sounds present. No organomegaly. EXTREMITIES: No edema, no cyanosis. NEUROLOGIC: The patient is awake, alert. Moving all four extremities. No focal deficit. MEDICATIONS: Aldactone, ramipril, Bentyl, Breo, Coreg, Crestor, Lovenox, Protonix, Synthroid, Tums, Vasotec. LABORATORY DATA: White blood cell is 26, hemoglobin 11, hematocrit 34.2, platelets 259. Sodium 140, potassium 3.7, BUN 15, creatinine 0.9, glucose 92. Iron saturation 17. ASSESSMENT AND PLAN: The patient is an 82-year-old lady with iron deficiency, came with chest pain, seen by the needle straightener, history f obesity, hypertension, hypercholesterolemia, hypothyroidism. Cardiac workup negative as per needle straightener. Gastrointestinal and deep venous thrombosis prophylaxis, repeat labs and we will followup. Sherron Lane MD
[2018-06-11] MEDS ORDERED: CHOLECALCIFEROL PO SCH (10:00)
== END 2018-06-07 13:20 | disposition home or self-care (01) ==
LOC: C.ER 11:26 → C.9E 14:31 → C.6T 14:59
PROVIDERS: ADMIT Internal Medicine; ATTEND Internal Medicine
DX: R07.89 Other chest pain (principal); E78.5 Hyperlipidemia, unspecified; E61.1 Iron deficiency; H54.7 Unspecified visual loss; I11.0 Hypertensive heart disease with heart failure; I50.9 Heart failure, unspecified; E03.9 Hypothyroidism, unspecified; J44.9 Chronic obstructive pulmonary disease, unspecified; H40.9 Unspecified glaucoma
CPT/HCPCS: 36415; 71045; 73562; 80048; 80053; 80061; 81001; 82550; 82553; 82607; 82746; 83036; 83540; 83550; 84443; 84484; 85025; 85027; 85610; 85730; 93005; 94640; 96372; 97116; 97162; 99285; G0378; G8978; G8979; J1650

== ENCOUNTER 2018-07-23 06:54 | Day surgery (SDC) | payer MEDICARE ==
[2018-07-22 11:19] VITALS: BMI 42.9
--- NOTE | 2018-07-23 08:14 | CP.SDSHP ---
Same Day Surgery H & P - History Proposed Procedure: egd Pre-Op Diagnosis: SEE NOTES - Previous Medical/Surgical History Cardiac: Hypertension Pulmonary: Asthma Endocrine/Metabolic: Thyroid Disease, Other Misc: Other Pain: 4.Moderate Pain - Allergies Allergies: Allergies FISH Adverse Reaction (Verified 07/23/18 07:25) VOMITING seasonal Allergy (Uncoded 07/23/18 07:25) CONGESTION - Physical Exam General Appearance: N Vital Signs: Vital Signs 07/23/18 07:38 Temperature 97.4 F L Pulse Rate 75 Respiratory 19 Rate Blood Pressure 175/96 H O2 Sat by Pulse 98 Oximetry Mental Status: Alert & Oriented x3 Neuro: WNL Heart: Other Lungs: Other GI: Other - {Optional Preform as Required} Breast: WNL Abdomen: Other Rectal: Other Integument: WNL : WNL Ortho: Other ENT: WNL - Impression Pt. Evaluated Today:Candidate for Anesthesia & Procedure: Yes - Date & Time Time: 08:14 Short Stay Discharge - Short Stay Discharge Admitting Diagnosis/Reason for Visit: DYSPEPSIA Disposition: HOME/ ROUTINE
[2018-07-23] MEDS ORDERED: Lactated Ringer's 500 ML IV ONE ×2 (08:15)
[2018-07-23] MEDS ORDERED: Propofol 10 mg/ml Inj (20 ML) ONE (08:20)
[2018-07-23] MEDS ORDERED: Pantoprazole 40 mg EC Tab PO STA (08:31)
[2018-07-23] MEDS ORDERED: Belladonna-Phenobarbital PO STA (08:31)
[2018-07-23 08:49] VITALS: TEMP 96.9
[2018-07-23 10:13] VITALS: BP 157/93; PULSE 65; RESP 23; O2SAT 99
== END 2018-07-23 10:10 | disposition home or self-care (01) ==
LOC: C.ENDO 06:54
PROVIDERS: ATTEND Specialist
DX: K30 Functional dyspepsia (principal); K44.9 Diaphragmatic hernia without obstruction or gangrene; K31.9 Disease of stomach and duodenum, unspecified
CPT/HCPCS: 43239; 88305; J2001; J2704; J7120

== ENCOUNTER 2018-08-03 08:42 | Inpatient (IN) | payer MEDICARE ==
[2018-08-03 08:52] VITALS: BMI 44.6
[2018-08-03] MEDS ORDERED: Sodium Chloride 0.9% 1,000 ML IV ONE (08:59)
[2018-08-03] MEDS ORDERED: Sodium Chloride 0.9% 1,000 ML ONE (09:32)
[2018-08-03 09:55] LABS: ALB/GLOB RATIO 1.3 (1.0-2.1); ALBUMIN 4.4 g/dL (3.5-5.0); ALT/SGPT 13 U/L (9-52); AST/SGOT 40 U/L (14-36); BLOOD UREA NITROGEN 15 mg/dL (7-17); CALCIUM 9.7 mg/dl (8.6-10.4); GFR NON-AFRICAN AMERICAN > 60; LIPASE 101 U/L (23-300)
--- NOTE | 2018-08-03 09:58 | C.PDOC ---
History Of Present Illness 82 year old female presents for evaluation of lower abdominal pain associated with diarrhea and nausea that started 1 day ago. Pt describes the pain as cramping. Today she notes red blood in the stool. Denies fever, chills, vomiting , and any other associated symptoms. Time Seen by Provider: 08/03/18 08:54 Chief Complaint (Nursing): Abdominal Pain History Per: Patient History/Exam Limitations: no limitations Onset/Duration Of Symptoms: Days (x1) Current Symptoms Are (Timing): Still Present Location Of Pain/Discomfort: LUQ, LLQ Radiation Of Pain To:: None Quality Of Discomfort: Cramping Associated Symptoms: Nausea, Diarrhea. denies: Fever, Chills, Vomiting Recent travel outside of the [place]: No Past Medical History Reviewed: Historical Data, Nursing Documentation, Vital Signs Vital Signs: Last Vital Signs Temp 98.2 F 08/03/18 08:50 Pulse 78 08/03/18 09:21 Resp 22 08/03/18 09:21 BP 148/88 08/03/18 09:21 Pulse Ox 96 08/03/18 09:21 - Medical History PMH: Arthritis, Asthma, Bronchitis, CHF, COPD, Gastritis, Gall Bladder Disease, HTN, Hypercholesterolemia, Hypothyroidism, Peripheral Edema, Pneumonia Denies: Fractures, Chronic Kidney Disease Surgical History: Cholecystectomy, Endoscopy Denies: Pacemaker - [facility] Procedures CLOSED ENDOSCOPIC BIOPSY OF LARGE INTESTINE (12/10/13) ESOPHAGOGASTRODUODENOSCOPY [EGD] W/CLOSED BIOPSY (12/10/13) Family History: States: Unknown Family Hx - Social History Hx Tobacco Use: No Hx Alcohol Use: No Hx Substance Use: No - Immunization History Hx Tetanus Toxoid Vaccination: No Hx Influenza Vaccination: No Hx Pneumococcal Vaccination: Yes Review Of Systems Except As Marked, All Systems Reviewed And Found Negative. Constitutional: Negative for: Fever, Chills Gastrointestinal: Positive for: Nausea, Abdominal Pain (lower. ), Diarrhea. Negative for: Vomiting Physical Exam - Physical Exam Appears: Non-toxic, No Acute Distress Skin: Warm, Dry Head: Atraumatic, Normacephalic Eye(s): bilateral: Normal Inspection Oral Mucosa: Moist Neck: Normal ROM, Supple Chest: Symmetrical, No Deformity Cardiovascular: Rhythm Regular, No Murmur Respiratory: Normal Breath Sounds, No Rales, No Rhonchi, No Wheezing Gastrointestinal/Abdominal: Soft, Tenderness (diffuse lower abd tenderness.), No Distention, No Guarding, No Rebound Extremity: Bilateral: Atraumatic, Normal Color And Temperature, Normal ROM Neurological/Psych: Oriented x3, Normal Speech, Normal Cognition ED Course And Treatment - Laboratory Results Result Diagrams: 08/04/18 11:28 08/04/18 08:55 Lab Results: Total Bilirubin 0.6 mg/dL (0.2-1.3) 08/03/18 09:34 AST 40 U/L (14-36) H 08/03/18 09:34 ALT 13 U/L (9-52) 08/03/18 09:34 Alkaline Phosphatase 54 U/L (38-126) 08/03/18 09:34 Total Protein 7.7 g/dL (6.3-8.3) 08/03/18 09:34 Albumin 4.4 g/dL (3.5-5.0) 08/03/18 09:34 Globulin 3.4 gm/dL (2.2-3.9) 08/03/18 09:34 Albumin/Globulin Ratio 1.3 (1.0-2.1) 08/03/18 09:34 Lipase 101 U/L (23-300) 08/03/18 09:34 ECG: Interpreted By Me, Viewed By Me ECG Rhythm: Sinus Rhythm, R BBB Rate From EC O2 Sat by Pulse Oximetry: 96 (RA) Pulse Ox Interpretation: Normal - CT Scan/US CT ABD/Pelvis Other Rad Studies (CT/US): Read By Radiologist CT/US Interpretation: Findings: Scattered atelectasis at the lung bases. Coronary calcifications. No pleural or pericardial effusion. Fatty infiltration of the liver. Few scattered hypodensities in the liver for example in the right hepatic lobe on series 3, image 36 measuring 9 millimeters, too small to adequately characterize. Prior cholecystectomy. Prominent common bile duct. Diminutive spleen. Mild nodularity of the adrenal glands. Pancreas is preserved. Small hiatal hernia. Right kidney: Few scattered hypo attenuated lesions for example in the upper pole measuring 1.4 centimeters demonstrating a Hounsfield unit attenuation of 18, indeterminate. Additional smaller subcentimeter hypodensities in the right kidney. Left Kidney: Few punctate scattered hypodensities, too small to adequately characterize. No calculi or hydronephrosis. Underdistended urinary bladder. Prior hysterectomy. Focal thickening of the sigmoid colon with adjacent mesenteric fat stranding as well as a few associated diverticuli at that level. This may represent a focal colitis versus diverticulitis versus additional etiology. Post treatment interval follow-up and/or colonoscopy would be helpful to exclude underlying lesion. Fecal retention in the right hemicolon. Appendix is within normal limits. Atherosclerotic calcification and plaque in the aorta. Few shotty para-aortic and inguinal lymph nodes. Few shotty mesenteric lymph nodes. Fat containing midline umbilical hernia. Degenerative changes in the spine. Sclerosis of the left SI joint. Impression: Focal thickening of the sigmoid colon with adjacent mesenteric fat stranding as well as a few associated diverticuli at that level. This may represent a focal colitis versus diverticulitis versus additional etiology. Post treatment interval follow-up and/or colonoscopy would be helpful to exclude underlying lesion. Clinical correlation. Additional findings as above. Medical Decision Making Medical Decision Making: Initial plan: -CT ABD & Pelvis IV Contrast Only -Protonix -Zofran -Urinalysis Disposition Discussed With Dr.: Sherron Lane Doctor Will See Patient In The: Hospital - Disposition Disposition: HOSPITALIZED Disposition Time: 09:40 Condition: STABLE - POA Present On Arrival: Blood Incompatibility - Clinical Impression Clinical Impression: Diverticulitis - Scribe Statement The provider has reviewed the documentation as recorded by the Scribe (Zabrina Bella) Provider Attestation: All medical record entries made by the Scribe were at my direction and personally dictated by me. I have reviewed the chart and agree that the record accurately reflects my personal performance of the history, physical exam, medical decision making, and the department course for this patient. I have also personally directed, reviewed, and agree with the discharge instructions and disposition.
[2018-08-03 10:01] LABS: BASO # 0.1 K/uL (0.0-0.2); BASO % 0.5 % (0.0-2.0); EOS # 0.1 K/uL (0.0-0.7); EOS % 0.5 % (0.0-4.0); HEMOGLOBIN 12.2 g/dL (11.0-16.0); LYMPH # 2.4 K/uL (1.0-4.3); LYMPH % 19.3 % (20.0-40.0); MEAN CORPUSCULAR HEMOGLOBIN 26.6 pg (27.0-31.0); MEAN CORPUSCULAR HGB CONC 31.6 g/dL (33.0-37.0); MEAN PLATELET VOLUME 8.4 fL (7.2-11.7); MONO # 0.9 K/uL (0.0-0.8); MONO % 7.1 % (0.0-10.0); NEUT # 9.1 K/uL (1.8-7.0); NEUT % 72.6 % (50.0-75.0); NRBC % 0.1 % (0.0-2.0); RBC 4.58 Mil/uL (3.80-5.20); RED CELL DISTRIBUTION WIDTH 14.5 % (11.5-14.5); WHITE BLOOD COUNT 12.5 K/uL (4.8-10.8)
[2018-08-03] MEDS ORDERED: Iodixanol 320 MG/ML 100 ML BOTTLE IV ONE (10:34)
--- NOTE | 2018-08-03 12:06 | CT ---
CT abdomen and pelvis HISTORY: Abdominal pain. COMPARISON: 11/30/2015 TECHNIQUE: Multiple contiguous axial images were performed through the abdomen and pelvis with the use of intravenous contrast. Subsequently, sagittal and coronal reformatted images were obtained. This CT exam was performed using one or more of the following dose reduction techniques: Automated exposure control, adjustment of the mA and/or kV according to patient size, and/or use of iterative reconstruction technique. Findings: Scattered atelectasis at the lung bases. Coronary calcifications. No pleural or pericardial effusion. Fatty infiltration of the liver. Few scattered hypodensities in the liver for example in the right hepatic lobe on series 3, image 36 measuring 9 millimeters, too small to adequately characterize. Prior cholecystectomy. Prominent common bile duct. Diminutive spleen. Mild nodularity of the adrenal glands. Pancreas is preserved. Small hiatal hernia. Right kidney: Few scattered hypo attenuated lesions for example in the upper pole measuring 1.4 centimeters demonstrating a Hounsfield unit attenuation of 18, indeterminate. Additional smaller subcentimeter hypodensities in the right kidney. Left Kidney: Few punctate scattered hypodensities, too small to adequately characterize. No calculi or hydronephrosis. Underdistended urinary bladder. Prior hysterectomy. Focal thickening of the sigmoid colon with adjacent mesenteric fat stranding as well as a few associated diverticuli at that level. This may represent a focal colitis versus diverticulitis versus additional etiology. Post treatment interval follow-up and/or colonoscopy would be helpful to exclude underlying lesion. Fecal retention in the right hemicolon. Appendix is within normal limits. Atherosclerotic calcification and plaque in the aorta. Few shotty para-aortic and inguinal lymph nodes. Few shotty mesenteric lymph nodes. Fat containing midline umbilical hernia. Degenerative changes in the spine. Sclerosis of the left SI joint. Impression: Focal thickening of the sigmoid colon with adjacent mesenteric fat stranding as well as a few associated diverticuli at that level. This may represent a focal colitis versus diverticulitis versus additional etiology. Post treatment interval follow-up and/or colonoscopy would be helpful to exclude underlying lesion. Clinical correlation. Additional findings as above.
[2018-08-03] MEDS ORDERED: Moxifloxacin IV 400mg/250ml NS 400 MG/250 ML BAG IVPB STA (13:52)
[2018-08-03] MEDS ORDERED: metroNIDAZOLE IV 500 mg/100 ml 500 MG/100 ML BAG IVPB STA (13:54)
[2018-08-03] MEDS ORDERED: metroNIDAZOLE IV 500 mg/100 ml 500 MG/100 ML BAG ONE (14:21)
[2018-08-03] MEDS ORDERED: Moxifloxacin IV 400mg/250ml NS 400 MG/250 ML BAG IVPB ONE (14:47)
[2018-08-03] MEDS ORDERED: HYDROmorphone 0.5 mg/0.5 ml ISec IVP PRN (17:37)
[2018-08-03] MEDS ORDERED: Levothyroxine 50 MCG TAB PO SCH (17:45)
[2018-08-03] MEDS: metroNIDAZOLE IV 500 mg/100 ml 500 MG/100 ML BAG IVPB SCH (21:21)
[2018-08-04] MEDS: metroNIDAZOLE IV 500 mg/100 ml 500 MG/100 ML BAG IVPB SCH ×3 (06:43→21:19)
[2018-08-04] MEDS: Levothyroxine 50 MCG TAB PO SCH (06:43)
[2018-08-04] MEDS ORDERED: Peg-Electrolyte Oral Soln 4L (Golytely) PO ONE (09:00)
[2018-08-04 09:15] LABS: INR 1.2; PROTHROMBIN TIME 13.3 SECONDS (9.7-12.2)
[2018-08-04 09:30] LABS: ALB/GLOB RATIO 1.4 (1.0-2.1); ALBUMIN 3.6 g/dL (3.5-5.0); ALT/SGPT 15 U/L (9-52); AST/SGOT 32 U/L (14-36); BLOOD UREA NITROGEN 12 mg/dL (7-17); CALCIUM 9.4 mg/dl (8.6-10.4); GFR NON-AFRICAN AMERICAN 60
[2018-08-04] MEDS ORDERED: Bisacodyl 5mg EC Tab PO ONE (09:30)
[2018-08-04] MEDS: Belladonna-Phenobarbital PO SCH ×3 (09:34→17:33)
[2018-08-04] MEDS: Pantoprazole 40 mg EC Tab PO SCH (09:35)
--- NOTE | 2018-08-04 09:40 | PN ---
DATE: 08/04/2018 LOCATION: 357, bed B. SUBJECTIVE: This is an 82-year-old female seen initially for GI consultation as requested by the admitting MD on 08/03/2018, reexamined again early today with a complaint of diarrhea, abdominal pain, trace of rectal bleeding with postprandial abdominal distention with nausea and dyspepsia. The entire chart is reviewed including but not limited to the most recent lab and radiology study results with today's lab results still pending. Yesterday lab results showed leukocytosis of 12.5 with normal hemoglobin and hematocrit with AST of 40 and normal lipase level. Abdominal and pelvic CAT scan performed yesterday, official report is seen indicative of diverticula in the left side with questionable focal colitis versus diverticulitis and post treatment with followup of colonoscopy is suggested. PHYSICAL EXAMINATION: GENERAL: An 82-year-old female. Denied any actual chest pain, palpitation or significant shortness of breath but complaint of abdominal pain, especially the midepigastric and left lower quadrant area. VITAL SIGNS: Pulse of 82, afebrile, blood pressure of 140/82, respiratory rate 20 to 22. HEENT: Showed pale, dry oral mucous membrane. Nonicteric sclerae. LUNGS: Few scattered crepitation. Decreased air entry at bases. HEART: Positive S1 and S2. ABDOMEN: Soft, mildly obese, mildly distended with left-sided tenderness. No mass or organomegaly. No rebound tenderness or guarding. EXTREMITIES: With mild lower extremity edematous changes. No clubbing or cyanosis. NEUROLOGIC: No reported new neurological deficits, sensory or motor. No reported new focal deficits. IMPRESSION: 1. Diverticulosis with possible left-sided diverticulitis. 2. Early stage of acute colitis with abnormal CAT scan of the abdomen and pelvis. 3. Re-exacerbation of peptic ulcer disease. 4. Multiple past medical history including but not limited to hypertension, congestive heart failure, chronic obstructive pulmonary disease, bronchitis with osteoarthritis as well as hyperlipidemia and hypothyroidism. 5. Reported history of pneumonia. SUGGESTIONS: 1. Agree with your plan. 2. Continue current IV antibiotics. 3. Cancer markers including but not limited to CEA and CA-125. 4. The patient may need endoscopic evaluation of the GI tract when she is more stable clinically. 5. Further recommendation to follow. Brian Cuba MD [facility] # [id number]
[2018-08-04] MEDS ORDERED: ARO IH SCH (10:00)
[2018-08-04] MEDS ORDERED: FORMOTEROL IH SCH (10:00)
[2018-08-04] MEDS ORDERED: MOMETASONE IH SCH (10:00)
[2018-08-04 11:37] LABS: BASO # 0.1 K/uL (0.0-0.2); BASO % 0.5 % (0.0-2.0); EOS # 0.1 K/uL (0.0-0.7); EOS % 1.3 % (0.0-4.0); HEMOGLOBIN 11.6 g/dL (11.0-16.0); LYMPH # 2.3 K/uL (1.0-4.3); LYMPH % 23.2 % (20.0-40.0); MEAN CELL VOLUME 84.8 fL (81.0-99.0); MEAN CORPUSCULAR HEMOGLOBIN 26.3 pg (27.0-31.0); MEAN PLATELET VOLUME 7.9 fL (7.2-11.7); MONO # 0.8 K/uL (0.0-0.8); NEUT # 6.8 K/uL (1.8-7.0); RBC 4.4 Mil/uL (3.80-5.20); RED CELL DISTRIBUTION WIDTH 14.2 % (11.5-14.5); WHITE BLOOD COUNT 10.1 K/uL (4.8-10.8)
[2018-08-04] MEDS: Moxifloxacin IV 400mg/250ml NS 400 MG/250 ML BAG IVPB SCH (14:25)
[2018-08-05] MEDS: metroNIDAZOLE IV 500 mg/100 ml 500 MG/100 ML BAG IVPB SCH ×3 (05:42→21:15)
[2018-08-05] MEDS: Levothyroxine 50 MCG TAB PO SCH (05:42)
[2018-08-05 06:43] LABS: HEMOGLOBIN 10.8 g/dL (11.0-16.0); MEAN CELL VOLUME 84.1 fL (81.0-99.0); MEAN CORPUSCULAR HEMOGLOBIN 27.8 pg (27.0-31.0); MEAN PLATELET VOLUME 7.8 fL (7.2-11.7); RBC 3.88 Mil/uL (3.80-5.20); RED CELL DISTRIBUTION WIDTH 14.5 % (11.5-14.5); WHITE BLOOD COUNT 8.6 K/uL (4.8-10.8)
[2018-08-05 07:19] LABS: AMYLASE 134 U/L (30-110); BLOOD UREA NITROGEN 13 mg/dL (7-17); CALCIUM 9.3 mg/dl (8.6-10.4); GFR NON-AFRICAN AMERICAN > 60; HDL CHOLESTEROL 38 mg/dL (30-70); IRON 46 ug/dL (37-170); LIPASE 87 U/L (23-300)
--- NOTE | 2018-08-05 07:25 | HP ---
The patient was seen and examined at the bedside on 08/03/2018. CHIEF COMPLAINT: Abdominal pain. HISTORY OF PRESENT ILLNESS: Ms. Jacqui Rasmussen is an 82-year-old female with past medical history of arthritis, asthma, bronchitis, congestive heart failure, COPD, gastritis, gallbladder disease, hypertension. Has lower abdominal pain associated with diarrhea. Nausea and vomiting are negative. The patient just has a pain as cramping. Today, she noticed red blood in the stool. No fever. No chills. No hematuria or hematochezia. No headache or dizziness. No chest pain. No palpitation. PAST MEDICAL HISTORY: Arthritis, asthma, bronchitis, congestive heart failure, COPD, gastritis, gallbladder disease, hypertension, hypercholesterolemia, hypothyroidism, peripheral edema, pneumonia. PAST SURGICAL HISTORY: History of cholecystectomy, endoscopy. FAMILY HISTORY: Father and mother, noncontributory. HABITS: No smoking, no drugs, no ethanol as per the patient. REVIEW OF SYSTEMS: The patient was seen and examined at the bedside. Looking comfortable. No fever, no chills, no hematuria, no headache, no dizziness except for abdominal pain. PHYSICAL EXAMINATION: VITAL SIGNS: Temperature 98.2, pulse 79, blood pressure 144/97, respiratory rate 18. HEENT: Head: Normocephalic and atraumatic. Eyes: PERRLA. Extraocular movements intact. Conjunctivae clear. Nose patent. Mucous membranes moist. NECK: Supple. No carotid bruit. No JVD. No thyromegaly. CHEST: Bilateral symmetrical. HEART: S1 and S2 positive. LUNGS: Clear to auscultation. ABDOMEN: Soft. Bowel sounds present. No organomegaly. EXTREMITIES: No edema. No cyanosis. NEUROLOGIC: Awake, alert. Moving all four extremities. No focal deficit. LABORATORY DATA: White blood cells 12.5, hemoglobin 12.2, hematocrit 38.5, platelets 279. Sodium 140, potassium 3.9, BUN 15, creatinine 0.8, glucose 103. ASSESSMENT AND PLAN: Ms. Jacqui Rasmussen is an 82-year-old female with leukocytosis, abnormal liver function tests, history of obesity, arthritis, asthma, bronchitis, congestive heart failure, chronic obstructive pulmonary disease, gastritis, gallbladder disease, hypertension, hypercholesterolemia, hypothyroidism, peripheral edema, pneumonia. We admitted the patient. Gastroenterology consultation was called with Dr. Boudreaux. Getting antibiotics, improving. Repeat labs. We will follow up. Sherron Lane MD
--- NOTE | 2018-08-05 07:25 | PN ---
DATE: 08/04/2018 SUBJECTIVE: The patient is an 82-year-old female. The patient was seen and examined at the bedside on 08/04/2018. Looking comfortable. Still having abdominal pain. No fever. No chills. No hematuria or hematochezia. No headache or dizziness. No chest pain. No palpitation. PHYSICAL EXAMINATION: VITAL SIGNS: Temperature 98.6, pulse 82, blood pressure 140/82, and respiratory rate 20. HEENT: Head: Normocephalic and atraumatic. Eyes: PERRLA. Extraocular movements are intact. Conjunctivae clear. Nose patent. Mucous membranes moist. NECK: Supple. No carotid bruits. No JVD or thyromegaly. CHEST: Bilaterally symmetrical. HEART: S1 and S2 positive. LUNGS: Clear to auscultation. ABDOMEN: Soft. Bowel sounds present. No organomegaly. EXTREMITIES: No edema. No cyanosis. NEUROLOGIC: The patient is awake and alert. Moving all four extremities. No focal deficits. LABORATORY DATA: White blood cells 7.1, hemoglobin 11.6, hematocrit 37.3, and platelets 268. Sodium 140, potassium 3.9, BUN 12, creatinine 0.9, and glucose 88. ASSESSMENT AND PLAN: The patient is an 82-year-old female with leukocytosis, abnormal liver function tests. Came with abdominal pain. Has diverticulosis with possible left-sided diverticulitis, early stage of acute colitis with abnormal CAT scan of the abdomen and pelvis. Exacerbation of peptic ulcer disease, multiple past medical history and problems of hypertension, congestive heart failure, obesity, chronic obstructive pulmonary disease, bronchitis, osteoarthritis, degenerative joint disease, hypercholesterolemia, hypothyroidism, history of pneumonia. Getting intravenous antibiotics. Cancer markers including but not limited to CEA and CA-125 ordered. Discussion done with the patient. She is feeling better. Right now, continue present treatment with labs. We will follow up. Sherron Lane MD
[2018-08-05 07:29] LABS: LDL CHOLESTEROL 82 mg/dL (0-129)
[2018-08-05 07:33] LABS: % IRON SATURATION 19 (20-55); TOTAL IRON BINDING CAPACITY 240 ug/dL (250-450)
[2018-08-05 09:03] LABS: FOLATE > 20.0 ng/mL
[2018-08-05] MEDS: Belladonna-Phenobarbital PO SCH ×3 (09:22→18:00)
[2018-08-05] MEDS: Pantoprazole 40 mg EC Tab PO SCH (09:22)
[2018-08-05] MEDS ORDERED: Peg-Electrolyte Oral Soln 4L (Golytely) PO ONE (13:00)
--- NOTE | 2018-08-05 14:51 | PN ---
DATE: 08/05/2018 LOCATION: 357, bed B. SUBJECTIVE: This 82-year-old female seen and examined in rounds without significant clinical changes or reported active bleeding with less episode of diarrhea. No chest pain or palpitation, but persistent abdominal pain with reported abnormal CAT scan of the abdomen and pelvis. On record, the patient had recurrent rectal bleeding prior to her admission. The entire chart is reviewed including but not limited to the most recent lab and radiology study results and today's lab showed drop of hemoglobin 10.8, hematocrit 32.6 with CO2 content of 31 indicative of respiratory alkalosis with amylase 134 but normal lipase and normal CEA and CA 19-9 and CA-125 levels. PHYSICAL EXAMINATION: GENERAL: An 82-year-old female appears to be awake, alert, oriented. VITAL SIGNS: Afebrile with pulse of 82, respiratory rate 20-22, blood pressure 160/82. HEENT: Showed pale, dry oral mucous membrane. Nonicteric sclerae. LUNGS: Few scattered crepitation. Decreased air entry at bases. HEART: Positive S1 and S2. ABDOMEN: Soft with generalized tenderness, mildly obese. No mass or organomegaly. No rebound tenderness or guarding. EXTREMITIES: Without significant clubbing, cyanosis or edema. No reported new neurological deficits, sensory or motor. IMPRESSION: 1. Rectal bleeding of unclear etiology, to rule out lower gastrointestinal blood loss. 2. Reported diverticulosis without significant diverticulitis. 3. Diarrhea most likely secondary to above. 4. Abnormal CAT scan of the abdomen and pelvis with early stage of acute colitis. 5. anemia secondary to above. 6. Re-exacerbation of peptic ulcer disease. 7. Known history of pneumonia, hypertension, congestive heart failure, chronic obstructive pulmonary disease, bronchitis with osteoarthritis as well as hyperlipidemia. 8. Hypothyroidism by history. SUGGESTIONS: 1. Continue current management. 2. The patient for colonoscopy after adequate preparation. 3. Further recommendations to follow. Brian Cuba MD
[2018-08-05] MEDS: Moxifloxacin IV 400mg/250ml NS 400 MG/250 ML BAG IVPB SCH (15:03)
[2018-08-05] MEDS ORDERED: Bisacodyl 5mg EC Tab PO ONE ×2 (17:00)
[2018-08-05] MEDS: Calcium Carbonate 500 mg Chewable Antacid Tab PO SCH (18:00)
--- NOTE | 2018-08-05 18:04 | PN ---
DATE: 08/05/2018 SUBJECTIVE: The patient was seen and examined at the bedside on 08/05/2018. Looking comfortable. Still complaining about lower abdominal pain, but it is better. Is on liquid diet, seen by GI. As per GI, the patient will go for colonoscopy tomorrow. No fever. No chills. No hematuria or hematochezia. No headache or dizziness. No chest pain. No palpitation. PHYSICAL EXAMINATION: VITAL SIGNS: Temperature 98, pulse 85, blood pressure 155/85, respiratory rate 20, pulse oximetry 96%. HEENT: Head: Normocephalic, atraumatic. Eyes: PERRLA. Extraocular movements are intact. Conjunctivae clear. Nose patent. Mucous membranes moist. NECK: Supple. No carotid bruits. No JVD or thyromegaly. CHEST: Bilaterally symmetrical. HEART: S1, S2 positive. LUNGS: Clear to auscultation. ABDOMEN: Soft. Bowel sounds present. No organomegaly. EXTREMITIES: No edema. No cyanosis. NEUROLOGIC: The patient is awake and alert. Moving all four extremities. No focal deficits. MEDICATIONS: Aldactone, Avelox, Bentyl, Coreg, Crestor, Dilaudid, vitamin D, Dulcolax, Flagyl, Protonix, Pulmicort, Reglan, Singulair, Synthroid, Tums, Tylenol, Vasotec, Zofran. LABORATORY DATA: White blood cells 8.6, hemoglobin 10.8, hematocrit 32.6, and platelets 255. Sodium 140, potassium 3.6, BUN 13, creatinine 0.8, glucose 97. ASSESSMENT AND PLAN: Ms. Jacqui Rasmussen is an 82-year-old lady with history of leukocytosis improved; anemia of iron deficiency, abnormal liver function tests; hypothyroidism, on getting TSH we have to change the dose; obesity, hypertension, hypercholesterolemia, history of arthritis, asthma, bronchitis, congestive heart failure, chronic obstructive pulmonary disease, gastritis, gallbladder disease, history of pneumonia, diverticulitis. Gastroenterology is on the case. Getting intravenous antibiotics. May be colonoscopy tomorrow. The patient is improving. Continue antibiotics. Out of bed, physical therapy. We will follow up. Sherron Lane MD [facility] # [id number] MTDD
--- NOTE | 2018-08-05 18:35 | CP.PCM.CON ---
History of Present Illness - History of Present Illness History of Present Illness: Patient 82 years old female with history of CHF, Hyperlipidemia Obesity , Hypothyroidism who was admitted for nausea, Vomiting, diarrhoea with blood in the stools. As per patient this the first time she has this complaint. Denies any chest pain. Past Patient History - Infectious Disease Hx of Infectious Diseases: None - Past Medical History & Family History Past Medical History?: Yes - Past Social History Smoking Status: Unknown If Ever Smoked - CARDIAC Hx Cardiac Disorders: Yes Hx Congestive Heart Failure: Yes Hx Hypercholesterolemia: Yes Hx Hypertension: Yes - PULMONARY Hx Chronic Obstructive Pulmonary Disease (COPD): Yes - NEUROLOGICAL Hx Neurological Disorder: Yes Hx Dizziness: Yes - HEENT Hx HEENT Problems: Yes Hx Epistaxis: Yes Hx Glaucoma: Yes Other/Comment: 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 wear glasses for poor vision - RENAL Hx Chronic Kidney Disease: No - ENDOCRINE/METABOLIC Hx Hypothyroidism: Yes - HEMATOLOGICAL/ONCOLOGICAL Hx Blood Disorders: Yes Hx Blood Transfusions: Yes (x 2) - INTEGUMENTARY Hx Dermatological Problems: No - MUSCULOSKELETAL/RHEUMATOLOGICAL Hx Arthritis: Yes - GASTROINTESTINAL Hx Gastrointestinal Disorders: Yes Hx Gall Bladder Disease: Yes Hx Gastritis: Yes - GENITOURINARY/GYNECOLOGICAL Hx Genitourinary Disorders: No - PSYCHIATRIC Hx Psychophysiologic Disorder: No Hx Substance Use: No - SURGICAL HISTORY Hx Surgeries: Yes Hx Cholecystectomy: Yes - ANESTHESIA Hx Anesthesia: Yes Hx Anesthesia Reactions: No Hx Malignant Hyperthermia: No Has any member of the family had a problem w/ anesthesia?: No Meds Allergies/Adverse Reactions: Allergies Allergy/AdvReac Type Severity Reaction Status Date / Time FISH AdvReac VOMITING Verified 08/03/18 08:49 seasonal Allergy CONGESTION Uncoded 08/03/18 08:49 - Medications Medications: Current Medications Acetaminophen (Tylenol 325mg Tab) 650 mg PO Q4H PRN PRN Reason: pain fever Last Admin: 08/04/18 21:35 Dose: 650 mg Arformoterol Tartrate (Brovana) 15 mcg INH RQ12 [facility] Belladonna/Phenobarbital () 1 tab PO TID [facility] Last Admin: 08/05/18 14:19 Dose: 1 tab Budesonide (Pulmicort Respules) 0.5 mg INH RQ12 [facility] Calcium Carbonate (Tums) 500 mg PO BID [facility] Carvedilol (Coreg) 12.5 mg PO DAILY [facility] Last Admin: 08/05/18 09:22 Dose: 12.5 mg Dicyclomine HCl (Bentyl) 10 mg PO BID [facility] Last Admin: 08/05/18 09:23 Dose: 10 mg Enalapril Maleate (Vasotec) 20 mg PO BID [facility] Last Admin: 08/05/18 09:23 Dose: 20 mg Ergocalciferol (Drisdol 50,000 Intl Units Cap) 1 cap PO QWK [facility] Hydromorphone HCl (Dilaudid) 0.25 mg IVP Q6H PRN PRN Reason: Pain, Mild (1-3) Metronidazole (Flagyl) 500 mg in 100 mls @ 100 mls/hr IVPB Q8 [facility]; Protocol Last Admin: 08/05/18 14:19 Dose: 100 mls/hr Moxifloxacin HCl (Avelox Iv 400mg/250ml Ns) 400 mg in 250 mls @ 167 mls/hr IVPB Q24H [facility]; Protocol Last Admin: 08/05/18 15:03 Dose: 167 mls/hr Levothyroxine Sodium (Synthroid) 50 mcg PO DAILY@0630 [facility] Last Admin: 08/05/18 05:42 Dose: 50 mcg Metoclopramide HCl (Reglan) 5 mg IVP Q8H [facility] Stop: 08/07/18 09:31 Last Admin: 08/05/18 17:17 Dose: 5 mg Montelukast Sodium (Singulair) 10 mg PO [facility] Last Admin: 08/04/18 21:21 Dose: 10 mg Ondansetron HCl (Zofran Inj) 4 mg IVP Q6 PRN PRN Reason: Nausea/Vomiting Pantoprazole Sodium (Protonix Ec Tab) 40 mg PO DAILY [facility] Last Admin: 08/05/18 09:22 Dose: 40 mg Rosuvastatin Calcium (Crestor) 5 mg PO HS [facility] Last Admin: 08/04/18 21:22 Dose: 5 mg Spironolactone (Aldactone) 25 mg PO DAILY [facility] Last Admin: 08/05/18 09:22 Dose: 25 mg Physical Exam - Head Exam Head Exam: NORMOCEPHALIC - Neck Exam Neck exam: Positive for: Normal Inspection - Respiratory Exam Respiratory Exam: NORMAL BREATHING PATTERN - Cardiovascular Exam Cardiovascular Exam: REGULAR RHYTHM - GI/Abdominal Exam GI & Abdominal Exam: Normal Bowel Sounds - Extremities Exam Extremities exam: Positive for: normal inspection - Neurological Exam Neurological exam: Alert, Oriented x3 Results - Vital Signs Recent Vital Signs: Last Vital Signs Temp 97.9 F 08/05/18 16:00 Pulse 71 08/05/18 16:00 Resp 20 08/05/18 16:00 BP 162/92 H 08/05/18 16:00 Pulse Ox 95 08/05/18 16:00 - Labs Result Diagrams: 08/05/18 06:29 08/05/18 06:29 Labs: Laboratory Results - last 24 hr 08/05/18 08/05/18 08/05/18 06:29 06:29 06:29 WBC 8.6 RBC 3.88 Hgb 10.8 L Hct 32.6 L MCV 84.1 MCH 27.8 MCHC 33.0 RDW 14.5 Plt Count 255 MPV 7.8 Sodium 140 Potassium 3.6 Chloride 104 Carbon Dioxide 31 H Anion Gap 8 L BUN 13 Creatinine 0.8 Est GFR ( Amer) > 60 Est GFR (Non-Af Amer) > 60 POC Glucose (mg/dL) Random Glucose 97 Hemoglobin A1c 6.2 Calcium 9.3 Iron TIBC % Saturation Triglycerides 92 D Cholesterol 140 LDL Cholesterol Direct 82 HDL Cholesterol 38 Amylase 134 H Lipase 87 Vitamin B12 847 Folate > 20.0 TSH 3rd Generation 7.59 H 08/05/18 08/05/18 06:29 07:46 WBC RBC Hgb Hct MCV MCH MCHC RDW Plt Count MPV Sodium Potassium Chloride Carbon Dioxide Anion Gap BUN Creatinine Est GFR ( Amer) Est GFR (Non-Af Amer) POC Glucose (mg/dL) 108 Random Glucose Hemoglobin A1c Calcium Iron 46 TIBC 240 L % Saturation 19 L Triglycerides Cholesterol LDL Cholesterol Direct HDL Cholesterol Amylase Lipase Vitamin B12 Folate TSH 3rd Generation Assessment & Plan - Assessment and Plan (Free Text) Assessment: Patient with multiple medical and cardiac issues. Plans for Colonoscopy. Cardiac caceres she is stable. May proceed with planned procedure with acceptable risk,. Keep k>4 and MG>2. Continue home meds and watch for fluid over load. Discussed with patient and team.
[2018-08-05] MEDS ORDERED: Arformoterol 15 mcg/2 ml Inh Sol INH SCH (20:00)
[2018-08-06] MEDS: metroNIDAZOLE IV 500 mg/100 ml 500 MG/100 ML BAG IVPB SCH ×3 (05:00→21:40)
[2018-08-06] MEDS: Levothyroxine 50 MCG TAB PO SCH (06:05)
[2018-08-06] MEDS: Calcium Carbonate 500 mg Chewable Antacid Tab PO SCH ×2 (09:24→18:00)
[2018-08-06] MEDS: Belladonna-Phenobarbital PO SCH ×3 (09:24→17:46)
[2018-08-06] MEDS: Pantoprazole 40 mg EC Tab PO SCH (09:25)
[2018-08-06] MEDS ORDERED: Lactated Ringer's 500 ML IV ONE (10:25)
[2018-08-06] MEDS ORDERED: Lidocaine Hydrochloride 5 ML INJ ONE (10:41)
[2018-08-06] MEDS ORDERED: Propofol 10 mg/ml Inj (20 ML) ONE (10:41)
[2018-08-06] MEDS: Moxifloxacin IV 400mg/250ml NS 400 MG/250 ML BAG IVPB SCH (14:22)
--- NOTE | 2018-08-06 15:35 | CARD ---
APPROVED REPORT Date of service: 08/03/2018 EKG Measurement Heart [id number] <Conclusion> Sinus rhythm with premature supraventricular complexes Right bundle branch block Left anterior fascicular block Bifascicular block Abnormal ECG
[2018-08-06 16:32] VITALS: RESP 20
--- NOTE | 2018-08-06 18:30 | PN ---
DATE: 08/05/2018 SUBJECTIVE: The patient is an 82-year-old female. The patient was seen and examined at the bedside on 08/05/2018. Still complaining about abdominal pain, went for colonoscopy by Dr. Mary. No fever, no chills, no hematuria, no hematochezia. No dizziness. No chest pain. No palpitation. PHYSICAL EXAMINATION: VITAL SIGNS: Temperature 97.3, pulse 52, blood pressure 115/74, respiratory rate 18. HEENT: Head: Normocephalic, atraumatic. Eyes: PERRLA. Extraocular movements are intact. Conjunctivae clear. Nose patent. Mucous membranes moist. NECK: Supple. No carotid bruits. No JVD or thyromegaly. CHEST: Bilaterally symmetrical. HEART: S1, S2 positive. LUNGS: Clear to auscultation. ABDOMEN: Soft. Bowel sounds present. No organomegaly. EXTREMITIES: No edema. No cyanosis. NEUROLOGIC: The patient is awake, alert, moving all four extremities. No focal deficits. MEDICATIONS: Aldactone, Avelox, Bentyl, Brovana, Coreg, Crestor, hydromorphone, , vitamin D, Flagyl, Protonix, Pulmicort, Reglan, Singulair, Synthroid, Tums, Tylenol, Vasotec and Zofran. LABORATORY DATA: White blood cells 8.6, hemoglobin 10.8, hematocrit 32.6, and platelets 255. Sodium 140, potassium 3.6, BUN 13, creatinine 0.8, glucose 101. ASSESSMENT AND PLAN: The patient is an 82-year-old lady with history of leukocytosis improved; anemia, iron deficiency, hypothyroidism, need readjustment of thyroxine, seen by noteman, Dr. Alex Bailon, hypercholesterolemia, obesity, nausea, vomiting, diarrhea is better, getting intravenous antibiotics and went for colonoscopy. Colonoscopy to cecum with biopsy, the patient had detrusor diverticulosis, large internal hemorrhoids and colitis. Continue antibiotics. Out of bed physical therapy, check labs. We will follow up. Sherron Lane MD [facility] # [id number] MTDD
[2018-08-06] MEDS: Budesonide 0.5 mg/2 ml Inhal Susp UD INH SCH (19:42)
[2018-08-07] MEDS: Levothyroxine 50 MCG TAB PO SCH (05:51)
[2018-08-07] MEDS: metroNIDAZOLE IV 500 mg/100 ml 500 MG/100 ML BAG IVPB SCH ×2 (05:51→13:56)
[2018-08-07 07:34] LABS: MEAN CELL VOLUME 84.1 fL (81.0-99.0); MEAN CORPUSCULAR HGB CONC 32.1 g/dL (33.0-37.0); RBC 4.06 Mil/uL (3.80-5.20); RED CELL DISTRIBUTION WIDTH 14.1 % (11.5-14.5); WHITE BLOOD COUNT 7.4 K/uL (4.8-10.8)
[2018-08-07 07:58] LABS: BLOOD UREA NITROGEN 10 mg/dL (7-17); CALCIUM 9.5 mg/dl (8.6-10.4); GFR NON-AFRICAN AMERICAN > 60
[2018-08-07] MEDS: Budesonide 0.5 mg/2 ml Inhal Susp UD INH SCH (08:53)
[2018-08-07] MEDS: Calcium Carbonate 500 mg Chewable Antacid Tab PO SCH (09:49)
[2018-08-07] MEDS: Pantoprazole 40 mg EC Tab PO SCH (09:49)
[2018-08-07] MEDS: Belladonna-Phenobarbital PO SCH ×2 (09:51→13:56)
[2018-08-07] MEDS: Moxifloxacin IV 400mg/250ml NS 400 MG/250 ML BAG IVPB SCH (14:55)
[2018-08-07 15:36] VITALS: BP 149/87; PULSE 67; TEMP 98.4; O2SAT 96
--- NOTE | 2018-08-07 17:12 | CP.PCM.PN ---
Subjective - Date & Time of Evaluation Date of Evaluation: 08/07/18 Time of Evaluation: 10:00 - Subjective Subjective: Pt alert and oriented x3 in no acute distress. Objective - Vital Signs/Intake and Output Vital Signs (last 24 hours): Temp Pulse Resp BP Pulse Ox 98.4 F 67 20 149/87 96 08/07/18 15:00 08/07/18 15:00 08/07/18 15:00 08/07/18 15:00 08/07/18 15:00 Intake and Output: 08/07/18 08/07/18 06:59 18:59 Intake Total 1170 830 Output Total 940 Balance 230 830 - Labs Labs: 08/07/18 07:29 08/07/18 07:29 PT 13.3 SECONDS (9.7-12.2) H 08/04/18 08:55 INR 1.2 08/04/18 08:55 APTT 33 SECONDS (21-34) 08/04/18 08:55 Assessment and Plan - Assessment and Plan (Free Text) Assessment: 82 year old female admitted with complaints of nausea, vomiting, diarrhea, and bloody stools. Pt had an EGD done results showed diverticulosis, tolerating Diet. Pt denies any complaints of Chest Pain, SOB, Nausea, vomitting or diarrhea at this time. Pt alert and oriented x3. VSS. Pt ambulating with a steady gait. Discharges discussed with Dr. Lane. Pt advised to have High Fiber Diet. Pt advised to f/u with PMD in [address] Boudreaux in 6 weeks.
--- NOTE | 2018-08-07 17:26 | PCM.HF ---
Heart Failure Core Measure - Heart Failure Ejection Fraction: 40 % or Greater (EF 90%) Left Ventricular Function to be assessed after discharge: No PAULINA Inhibitor Prescribed: Yes Beta-Jeff Prescribed: Carvedilol Angiotensin II Receptor Jeff Prescribed: No Contraindication/Reason for not providing: pt on an PAULINA AnticoagulationTherapy for Atrial Fibrillation/Atrialflutter: No Contraindication/Reason for not providing: not indicated Aldosterone Antagonist Prescribed: Yes Hydralazine Nitrate Prescribed: No Contraindication/Reason for not providing: pt EF > 40% Implantable Cardioverter Defibrillator Therapy: No Contraindication/Reason for not providing: pt EF >40% Cardiac Resynchronization Therapy Prescribed: No Contraindication/Reason for not providing: pt EF >40% - Follow up Will be discharged to: Home Follow Up Date (must be within 7 days from discharge): 08/12/18 Follow Up Time: 10:00
--- NOTE | 2018-08-08 00:12 | PN ---
DATE: 08/07/2018 LOCATION: 357, bed B. SUBJECTIVE: This is an 82-year-old female seen and examined early in rounds post colonoscopy, without reported active bleeding, tolerating oral intake well with much less abdominal pain or discomfort. No chest pain, palpitation or significantly increased shortness of breath. The entire chart is reviewed and today's lab results showed normal CBC and normal SMA-18. PHYSICAL EXAMINATION: GENERAL: An 82-year-old female, awake, alert, oriented, afebrile. Pulse of 70, respiratory rate 20-22, and blood pressure of 142/84. HEENT: Showed pale, dry oral mucoid membrane. Nonicteric sclerae. LUNGS: Few scattered crepitation. Decreased air entry at bases. HEART: Positive S1 and S2. ABDOMEN: Soft with mild generalized tenderness. No mass or organomegaly. No rebound tenderness or guarding. EXTREMITIES: Without significant edema, clubbing or cyanosis. NEUROLOGIC: No reported new neurological deficit, sensory or motor. Official pathology report of her colon biopsy is reviewed. However, despite so, I believe that the patient had an acute episode of ischemic colitis. IMPRESSION: 1. Abnormal CAT scan of abdomen and pelvis. 2. Rectal bleeding. 3. Evidence of ischemic colitis by colonoscopy. 4. Severe diverticulosis by colonoscopy. SUGGESTIONS: 1. Continue current management. 2. Adjust oral intake. No seeds. 3. Antireflux measures. Further recommendation to follow and the patient is to be followed up as outpatient. Brian Cuba MD
[2018-08-10] MEDS ORDERED: Ergocalciferol 50,000 Intl Units Cap PO SCH (10:00)
== END 2018-08-07 16:34 | disposition home or self-care (01) | DRG 394 ==
LOC: C.ER 08:42 → C.9E 13:53 → C.3T 14:53 → OBSVTOIN 08-04 21:05
PROVIDERS: ADMIT Internal Medicine; ATTEND Internal Medicine
PROC: 0DBN8ZX Excision of Sigmoid Colon, Via Natural or Artificial Opening Endoscopic, Diagnostic (ICD-10-PCS; principal; 2018-08-06 10:25)
DX: K55.039 Acute (reversible) ischemia of large intestine, extent unspecified (principal); K57.30 Diverticulosis of large intestine without perforation or abscess without bleeding; E87.3 Alkalosis; K64.8 Other hemorrhoids; D50.9 Iron deficiency anemia, unspecified; K27.9 Peptic ulcer, site unspecified, unspecified as acute or chronic, without hemorrhage or perforation; I11.0 Hypertensive heart disease with heart failure; I50.9 Heart failure, unspecified; J44.9 Chronic obstructive pulmonary disease, unspecified; E03.9 Hypothyroidism, unspecified; E78.5 Hyperlipidemia, unspecified; E78.00 Pure hypercholesterolemia, unspecified; H40.9 Unspecified glaucoma; H54.7 Unspecified visual loss; Z87.01 Personal history of pneumonia (recurrent); Z90.49 Acquired absence of other specified parts of digestive tract

== ENCOUNTER 2018-08-13 12:28 | Inpatient (IN) | payer MEDICARE ==
[2018-08-13 12:35] VITALS: BMI 46.1
[2018-08-13] MEDS ORDERED: Albuterol-Ipratrop 3 mg / 0.5 (3 ml) UD ONE (12:47)
[2018-08-13] MEDS ORDERED: Albuterol 0.083% Inhal Sol (2.5 mg/3 mL) UD IH STA ×2 (13:04→15:05)
[2018-08-13] MEDS ORDERED: Albuterol-Ipratrop 3 mg / 0.5 (3 ml) UD INH STA (13:04)
[2018-08-13 13:27] LABS: BASO # 0.1 K/uL (0.0-0.2); BASO % 0.6 % (0.0-2.0); EOS # 0.3 K/uL (0.0-0.7); EOS % 3.1 % (0.0-4.0); HEMOGLOBIN 11.4 g/dL (11.0-16.0); LYMPH % 22.5 % (20.0-40.0); MEAN CELL VOLUME 84.6 fL (81.0-99.0); MEAN CORPUSCULAR HEMOGLOBIN 27.5 pg (27.0-31.0); MEAN CORPUSCULAR HGB CONC 32.5 g/dL (33.0-37.0); MEAN PLATELET VOLUME 8.3 fL (7.2-11.7); MONO # 0.7 K/uL (0.0-0.8); MONO % 8.2 % (0.0-10.0); NEUT # 5.9 K/uL (1.8-7.0); NEUT % 65.6 % (50.0-75.0); RBC 4.15 Mil/uL (3.80-5.20); RED CELL DISTRIBUTION WIDTH 14.4 % (11.5-14.5); WHITE BLOOD COUNT 8.9 K/uL (4.8-10.8)
--- NOTE | 2018-08-13 13:35 | RAD ---
Date of service: 08/13/2018 PROCEDURE: CHEST RADIOGRAPH, 1 VIEW HISTORY: SOB COMPARISON: 06/04/2018. FINDINGS: LUNGS: The lungs are well inflated and clear. PLEURA: No pneumothorax or pleural effusion. CARDIOVASCULAR: There is severe cardiomegaly. There are aortic atherosclerotic calcifications present. OSSEOUS STRUCTURES: Within normal limits for the patient's age. VISUALIZED UPPER ABDOMEN: Normal. OTHER FINDINGS: None. IMPRESSION: No active pulmonary disease. Severe cardiomegaly.
[2018-08-13 13:42] LABS: ALB/GLOB RATIO 1.3 (1.0-2.1); ALBUMIN 4.4 g/dL (3.5-5.0); ALT/SGPT 15 U/L (9-52); AST/SGOT 44 U/L (14-36); BLOOD UREA NITROGEN 10 mg/dL (7-17); GFR NON-AFRICAN AMERICAN > 60
[2018-08-13 13:47] LABS: INR 1.2; PROTHROMBIN TIME 12.8 SECONDS (9.7-12.2)
[2018-08-13 13:50] LABS: B-TYPE NATRIURETIC PEPTIDE 357 pg/mL (0-900); CK-MB 0.82 ng/mL (0.0-3.38)
--- NOTE | 2018-08-13 14:58 | C.PDOC ---
History Of Present Illness 82 y/o femalw w/PMhx of COPD/asthma, CHF, HTN, hyperlipidemia, and hypothyroidism, presents to the ER complaining of shortness of breath and wheezing which began in the morning. Patient states that she has associated intermittent, non-radiating chest pain. She denies fever,chills, palpitations, nausea,vomiting, abdominal pain. Time Seen by Provider: 08/13/18 12:39 Chief Complaint (Nursing): Shortness Of Breath History Per: Patient History/Exam Limitations: no limitations Onset/Duration Of Symptoms: Days Current Symptoms Are (Timing): Still Present Severity: Moderate Past Medical History Reviewed: Historical Data, Nursing Documentation, Vital Signs Vital Signs: Last Vital Signs Temp 99.1 F 08/13/18 12:34 Pulse 76 08/13/18 13:47 Resp 20 08/13/18 13:47 BP 174/84 H 08/13/18 13:47 Pulse Ox 96 08/13/18 13:47 - Medical History PMH: Arthritis, Asthma, Bronchitis, CHF, COPD, Gastritis, Gall Bladder Disease, HTN, Hypercholesterolemia, Hypothyroidism, Peripheral Edema, Pneumonia Surgical History: Cholecystectomy, Endoscopy - [facility] Procedures CLOSED ENDOSCOPIC BIOPSY OF LARGE INTESTINE (12/10/13) ESOPHAGOGASTRODUODENOSCOPY [EGD] W/CLOSED BIOPSY (12/10/13) EXCISION OF SIGMOID COLON, ENDO, DIAGN (08/04/18) Family History: States: No Known Family Hx - Social History Hx Tobacco Use: No Hx Alcohol Use: No Hx Substance Use: No - Immunization History Hx Tetanus Toxoid Vaccination: Yes Hx Influenza Vaccination: No Hx Pneumococcal Vaccination: Yes Review Of Systems Constitutional: Negative for: Fever, Chills Cardiovascular: Negative for: Chest Pain, Palpitations Respiratory: Positive for: Shortness of Breath, Wheezing. Negative for: Cough Gastrointestinal: Negative for: Nausea, Vomiting, Abdominal Pain, Diarrhea Skin: Negative for: Rash Neurological: Negative for: Headache, Dizziness Physical Exam - Physical Exam Appears: Non-toxic, No Acute Distress, Other (speaking in full sentences) Skin: Normal Color, Warm, Dry, No Rash Head: Normacephalic Eye(s): bilateral: Normal Inspection Oral Mucosa: Moist Neck: Supple Cardiovascular: Rhythm Regular, No Murmur Respiratory: No Accessory Muscle Use, No Rales, No Rhonchi, Wheezing (bilateral expiratory wheezing) Gastrointestinal/Abdominal: Normal Exam, Bowel Sounds, Soft, No Tenderness Extremity: Normal ROM, No Calf Tenderness, No Deformity, Other (2+ pitting edema of bilateral lower extremities) Pulses: Left Dorsalis Pedis: Normal, Right Dorsalis Pedis: Normal Neurological/Psych: Oriented x3 ED Course And Treatment - Laboratory Results Result Diagrams: 08/15/18 14:01 08/15/18 14:01 Lab Results: PT 12.8 SECONDS (9.7-12.2) H 08/13/18 13:21 INR 1.2 08/13/18 13:21 APTT 34.0 SECONDS (21-34) 08/13/18 13:21 Troponin I < 0.0120 ng/mL (0.00-0.120) 08/13/18 13:21 NT-Pro-B Natriuret Pep 357 pg/mL (0-900) 08/13/18 13:21 Total Bilirubin 0.5 mg/dL (0.2-1.3) 08/13/18 13:21 AST 44 U/L (14-36) H D 08/13/18 13:21 ALT 15 U/L (9-52) 08/13/18 13:21 Alkaline Phosphatase 47 U/L (38-126) 08/13/18 13:21 Total Protein 7.8 g/dL (6.3-8.3) 08/13/18 13:21 Albumin 4.4 g/dL (3.5-5.0) 08/13/18 13:21 Globulin 3.4 gm/dL (2.2-3.9) 08/13/18 13:21 Albumin/Globulin Ratio 1.3 (1.0-2.1) 08/13/18 13:21 ECG: Interpreted By Me, Viewed By Me ECG Rhythm: Sinus Rhythm ECG Interpretation: No Changes From Prior (08/03/18) Interpretation Of ECG: NSR with left axis deviation,RBBB, and no acute ST changes Rate From EC O2 Sat by Pulse Oximetry: 96 (RA) Pulse Ox Interpretation: Normal - Radiology CXR: Interpreted by Me, Viewed By Me CXR Interpretation: Yes: Cardiomegaly. No: Infiltrates Progress Note: Blood work, EKG,and CXR ordere and reviewed. Patient given PO ASA, IV solumedrol, albuterol neb treatments. Reevaluation Time: 15:05 Reassessment Condition: Improved (Patient reassessed, reports some improvement in her SOB. on exam, (+) mild expiratory wheezing despite IV solumedrol and multiple rounds of nebs - patient will need obs.) - Physician Consult Information Physician Contacted: Sherron Lane Outcome Of Conversation: Discussed patient with PMD, agrees with obs tele for chest pain, dyspnea, copd exacerbation. Critical Care Time - Critical Care Note Total Time (in mins): 35 Documented critical care: time excludes all time spent performing seperately billable procedures. Disposition - Disposition Disposition: HOSPITALIZED Disposition Time: 15:13 Condition: STABLE - Clinical Impression Clinical Impression: COPD exacerbation, Dyspnea, Chest pain - Scribe Statement The provider has reviewed the documentation as recorded by the Scribe Ruy Yu Provider Attestation: All medical record entries made by the Scribe were at my direction and personally dictated by me. I have reviewed the chart and agree that the record accurately reflects my personal performance of the history, physical exam, medical decision making, and the department course for this patient. I have also personally directed, reviewed, and agree with the discharge instructions and disposition.
[2018-08-13] MEDS ORDERED: Albuterol 0.083% Inhal Sol (2.5 mg/3 mL) UD ONE (15:48)
[2018-08-13] MEDS ORDERED: Levothyroxine 50 MCG TAB PO SCH (16:30)
--- NOTE | 2018-08-13 17:29 | CP.PCM.CON ---
History of Present Illness - History of Present Illness History of Present Illness: Reason for consultation: Shortness of breath Patient is an 82yo AA F that originally presented to with shortness of breath, x1 day. The patient reported no inciting factors that lead to this episode of dyspnea. The patients reports that she had developed a cough with yellow sputum around the same time as the dyspnea. The patient also complains of LE edema bilaterally. The patient currently denies, chest pain, palpitations, nausea, vomiting, fever, nasal congestion, abd pain, joint pain. PMH:Asthma, bronchitis, gastritis, HTN, Hypothyroidism PSH: Cholecystectomy, Thyroidectomy Allergies: Fish FamHx: Denies significant family history Social: Denies smoking, etoh, and illicit drug use. Review of Systems - Review of Systems All systems: reviewed and no additional remarkable complaints except (Shortness of breath) Past Patient History - Infectious Disease Hx of Infectious Diseases: None - Past Medical History & Family History Past Medical History?: Yes - Past Social History Smoking Status: Never Smoked - CARDIAC Hx Congestive Heart Failure: Yes Hx Hypercholesterolemia: Yes Hx Hypertension: Yes Hx Pacemaker: No Hx Peripheral Edema: Yes - PULMONARY Hx Asthma: Yes Hx Bronchitis: Yes Hx Chronic Obstructive Pulmonary Disease (COPD): Yes Hx Pneumonia: Yes - NEUROLOGICAL Hx Neurological Disorder: Yes Hx Dizziness: Yes - HEENT Hx HEENT Problems: Yes Hx Epistaxis: Yes Hx Glaucoma: Yes Other/Comment: 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 wear glasses for poor vision - RENAL Hx Chronic Kidney Disease: No - ENDOCRINE/METABOLIC Hx Hypothyroidism: Yes - HEMATOLOGICAL/ONCOLOGICAL Hx Blood Disorders: Yes Hx Blood Transfusions: Yes - INTEGUMENTARY Hx Dermatological Problems: No - MUSCULOSKELETAL/RHEUMATOLOGICAL Hx Arthritis: Yes Hx Fractures: No - GASTROINTESTINAL Hx Gall Bladder Disease: Yes Hx Gastritis: Yes - GENITOURINARY/GYNECOLOGICAL Hx Genitourinary Disorders: No - PSYCHIATRIC Hx Substance Use: No - SURGICAL HISTORY Hx Cholecystectomy: Yes - ANESTHESIA Hx Anesthesia: Yes Hx Anesthesia Reactions: No Hx Malignant Hyperthermia: No Meds Allergies/Adverse Reactions: Allergies Allergy/AdvReac Type Severity Reaction Status Date / Time FISH AdvReac VOMITING Verified 08/03/18 08:49 seasonal Allergy CONGESTION Uncoded 08/03/18 08:49 - Medications Medications: Current Medications Acetaminophen (Tylenol 325mg Tab) 650 mg PO Q4H PRN PRN Reason: Pain, Mild (1-3) / Fever Albuterol/Ipratropium (Duoneb 3 Mg/0.5 Mg (3 Ml) Ud) 3 ml IH RQ6 [facility] Arformoterol Tartrate (Brovana) 15 mcg INH RQ12 [facility] Aspirin (Ecotrin) 81 mg PO DAILY [facility] Calcium Carbonate (Tums) 750 mg PO DAILY [facility] Carvedilol (Coreg) 12.5 mg PO DAILY [facility] Dicyclomine HCl (Bentyl) 10 mg PO BID [facility] Enalapril Maleate (Vasotec) 20 mg PO BID [facility] Ergocalciferol (Drisdol 50,000 Intl Units Cap) 1 cap PO QWK [facility] Levothyroxine Sodium (Synthroid) 50 mcg PO DAILY [facility] Loratadine (Claritin) 10 mg PO DAILY [facility] Methylprednisolone (Solu-Medrol) 40 mg IVP Q12 [facility] Montelukast Sodium (Singulair) 10 mg PO DAILY [facility] Pantoprazole Sodium (Protonix Ec Tab) 40 mg PO DAILY [facility] Rosuvastatin Calcium (Crestor) 5 mg PO HS [facility] Spironolactone (Aldactone) 25 mg PO DAILY [facility] Physical Exam - Head Exam Head Exam: ATRAUMATIC, NORMOCEPHALIC - Eye Exam Eye Exam: Normal appearance - ENT Exam ENT Exam: Mucous Membranes Moist - Neck Exam Neck exam: Positive for: Normal Inspection - Respiratory Exam Respiratory Exam: Rhonchi, Wheezes - Cardiovascular Exam Cardiovascular Exam: REGULAR RHYTHM - GI/Abdominal Exam GI & Abdominal Exam: Normal Bowel Sounds, Soft - Extremities Exam Extremities exam: Positive for: pedal edema - Neurological Exam Neurological exam: Alert, Oriented x3 Results - Vital Signs Recent Vital Signs: Last Vital Signs Temp 98.0 F 08/13/18 17:00 Pulse 90 08/13/18 17:00 Resp 20 08/13/18 17:00 BP 177/102 H 08/13/18 17:00 Pulse Ox 96 08/13/18 17:00 - Labs Result Diagrams: 08/13/18 13:21 08/13/18 13:21 Labs: Laboratory Results - last 24 hr 08/13/18 08/13/18 08/13/18 13:21 13:21 13:21 WBC 8.9 RBC 4.15 Hgb 11.4 Hct 35.1 MCV 84.6 MCH 27.5 MCHC 32.5 L RDW 14.4 Plt Count 265 MPV 8.3 Neut % (Auto) 65.6 Lymph % (Auto) 22.5 [place] % (Auto) 8.2 Eos % (Auto) 3.1 Baso % (Auto) 0.6 Neut # (Auto) 5.9 Lymph # (Auto) 2.0 [place] # (Auto) 0.7 Eos # (Auto) 0.3 Baso # (Auto) 0.1 PT 12.8 H INR 1.2 APTT 34.0 Sodium 137 Potassium 4.2 Chloride 102 Carbon Dioxide 27 Anion Gap 12 BUN 10 Creatinine 0.8 Est GFR ( Amer) > 60 Est GFR (Non-Af Amer) > 60 Random Glucose 93 Calcium 9.0 Total Bilirubin 0.5 AST 44 H D ALT 15 Alkaline Phosphatase 47 Total Creatine Kinase 56 CK-MB (Mass) 0.82 Troponin I < 0.0120 NT-Pro-B Natriuret Pep 357 Total Protein 7.8 Albumin 4.4 Globulin 3.4 Albumin/Globulin Ratio 1.3 Assessment & Plan (1) Acute bronchitis Status: Acute Comment: Continue nebulizer treatment. Continue antibiotics and IV steroids. Follow-up chest x-ray. Diuretics (2) Asthma exacerbation Status: Acute
[2018-08-13 18:28] LABS: ALB/GLOB RATIO 1.3 (1.0-2.1); ALBUMIN 4.3 g/dL (3.5-5.0); ALT/SGPT 18 U/L (9-52); AST/SGOT 38 U/L (14-36); BILIRUBIN,DIRECT 0.2 mg/dL (0.0-0.4)
[2018-08-13 18:39] LABS: CK-MB 1.05 ng/mL (0.0-3.38)
[2018-08-13] MEDS: MethylPREDNISolone 40 mg Vial IVP SCH (22:08)
--- NOTE | 2018-08-14 04:11 | HP ---
CHIEF COMPLAINT: Shortness of breath, coughing. HISTORY OF PRESENT ILLNESS: Ms. Jacqui Rasmussen is an 82-year-old female with past medical history of COPD, asthma, congestive heart failure, hypertension, hypercholesterolemia, hypothyroidism, obesity, history of GI bleeding and abdominal pain, came to the emergency room with shortness of breath and wheezing. The patient states that she has associated intermittent non-radiating chest pain. The patient denies having fever, chills, palpitation, nausea, vomiting, diarrhea. We admitted the patient, was started Solu-Medrol, put Pulmonary consult and inhaled breathing treatment given. PAST MEDICAL HISTORY: Arthritis, asthma, bronchitis, congestive heart failure, COPD, gastritis, gallbladder disease, hypertension, hypercholesterolemia, hypothyroidism, peripheral edema, pneumonia. FAMILY HISTORY: Father and mother, noncontributory. HABITS: No smoking, no drugs, no ethanol. ALLERGIES: THE PATIENT IS NOT ALLERGIC WITH ANY MEDICATIONS. THE PATIENT IS ALLERGIC TO FISH. REVIEW OF SYSTEMS: The patient was seen and examined at the bedside, looking comfortable. No fever, no chills. No hematuria, no hematochezia. Still coughing, having shortness of breath. PHYSICAL EXAMINATION: VITAL SIGNS: Temperature 99.1, pulse 76, respirations 20, blood pressure 174/84, pulse oximetry 96%. HEENT: Head normocephalic, atraumatic. Eyes, PERRLA. Extraocular muscles intact. Conjunctivae clear. Nose patent. Mucous membrane moist. NECK: Supple, no carotid bruits. No thyromegaly. CHEST: Bilaterally symmetrical. HEART: S1 and S2 positive. LUNGS: Clear to auscultation. ABDOMEN: Soft. Bowel sounds present. No organomegaly. EXTREMITIES: No edema, no cyanosis. NEUROLOGIC: The patient is awake, alert. Follows simple commands. LABORATORY DATA: White blood cell 8.9, hemoglobin 11.4, hematocrit 35.1, platelets 265. Sodium 137, potassium 4.2, BUN 10, creatinine 0.8, glucose 93. ASSESSMENT AND PLAN: Ms. Jacqui Rasmussen is an 82-year-old female, was recently discharged last week from the hospital, came with chest pain, shortness of breath, dyspnea, and coughing with yellow phlegm. The patient has history of asthma, bronchitis, gastritis, hypertension, hypothyroidism, and history of cholecystectomy. We admitted the patient, was started Solu-Medrol, nebulizer treatment, and repeat labs. We will follow up. Sherron Lane MD
[2018-08-14] MEDS: Albuterol-Ipratrop 3 mg / 0.5 (3 ml) UD IH SCH ×4 (04:41→19:46)
[2018-08-14] MEDS: Levothyroxine 50 MCG TAB PO SCH (05:44)
[2018-08-14] MEDS: Budesonide 0.5 mg/2 ml Inhal Susp UD INH SCH ×2 (07:32→19:45)
[2018-08-14] MEDS: Arformoterol 15 mcg/2 ml Inh Sol INH SCH ×2 (07:32→19:45)
[2018-08-14] MEDS: Pantoprazole 40 mg EC Tab PO SCH (09:04)
[2018-08-14] MEDS: Calcium Carbonate 500 mg Chewable Antacid Tab PO SCH (09:06)
[2018-08-14] MEDS: MethylPREDNISolone 40 mg Vial IVP SCH ×2 (09:07→22:07)
--- NOTE | 2018-08-14 15:51 | CP.PCM.PN ---
Subjective - Date & Time of Evaluation Date of Evaluation: 08/14/18 Time of Evaluation: 11:45 - Subjective Subjective: Patient was seen and examined at bedside. She states that her SOB is improving. The patient currently denies: chest pain, palpitations, nausea, vomiting, fever, nasal congestion, abd pain, and joint pain. O: General: NAD, well appearing female HEENT: mucous membranes moist, normal inspection. Cardio: RRR s1 and s2 present Pulm: normal breathing pattern, +wheezing GI: + bowel sound in all 4 quadrants Extremities: mild pedal edema CXR 08/13 shows no active pulmonary disease and severe cardiomegaly. A: 82 year old AA female that originally presented to with shortness of breath, x1 day. The patient reported no inciting factors that lead to this episode of dyspnea. The patients reports that she had developed a cough with yellow sputum around the same time as the dyspnea. The patient also complains of LE edema bilaterally. Patient is clinically improving. P: continue Duoneb, pulmicort, solumedrol, brovana, singular continue diaretic; spironolactone Objective - Vital Signs/Intake and Output Vital Signs (last 24 hours): Temp Pulse Resp BP Pulse Ox 97.7 F 82 20 148/77 98 08/14/18 07:00 08/14/18 07:02 08/14/18 07:00 08/14/18 09:06 08/14/18 07:00 - Medications Medications: Current Medications Acetaminophen (Tylenol 325mg Tab) 650 mg PO Q4H PRN PRN Reason: Pain, Mild (1-3) / Fever Albuterol/Ipratropium (Duoneb 3 Mg/0.5 Mg (3 Ml) Ud) 3 ml IH RQ6 [facility] Last Admin: 08/14/18 13:33 Dose: 3 ml Arformoterol Tartrate (Brovana) 15 mcg INH RQ12 [facility] Last Admin: 08/14/18 07:32 Dose: 15 mcg Aspirin (Ecotrin) 81 mg PO DAILY [facility] Last Admin: 08/14/18 09:06 Dose: 81 mg Budesonide (Pulmicort Respules) 0.5 mg INH RQ12 [facility] Last Admin: 08/14/18 07:32 Dose: 0.5 mg Calcium Carbonate (Tums) 1,000 mg PO DAILY [facility] Last Admin: 08/14/18 09:06 Dose: 1,000 mg Carvedilol (Coreg) 12.5 mg PO DAILY [facility] Last Admin: 08/14/18 09:06 Dose: 12.5 mg Dicyclomine HCl (Bentyl) 10 mg PO BID [facility] Last Admin: 08/14/18 09:13 Dose: 10 mg Enalapril Maleate (Vasotec) 20 mg PO BID [facility] Last Admin: 08/14/18 09:06 Dose: 20 mg Ergocalciferol (Drisdol 50,000 Intl Units Cap) 1 cap PO QWK [facility] Heparin Sodium (Porcine) (Heparin) 5,000 units SC Q12 [facility] Levothyroxine Sodium (Synthroid) 50 mcg PO DAILY@0630 [facility] Last Admin: 08/14/18 05:44 Dose: 50 mcg Loratadine (Claritin) 10 mg PO DAILY [facility] Last Admin: 08/14/18 09:06 Dose: 10 mg Methylprednisolone (Solu-Medrol) 40 mg IVP Q12 [facility] Last Admin: 08/14/18 09:07 Dose: 40 mg Montelukast Sodium (Singulair) 10 mg PO DAILY [facility] Last Admin: 08/14/18 09:05 Dose: 10 mg Pantoprazole Sodium (Protonix Ec Tab) 40 mg PO DAILY [facility] Last Admin: 08/14/18 09:04 Dose: 40 mg Rosuvastatin Calcium (Crestor) 5 mg PO HS [facility] Last Admin: 08/13/18 22:08 Dose: 5 mg Spironolactone (Aldactone) 25 mg PO DAILY [facility] Last Admin: 08/14/18 09:06 Dose: 25 mg - Labs Labs: 08/13/18 13:21 08/13/18 13:21 PT 12.8 SECONDS (9.7-12.2) H 08/13/18 13:21 INR 1.2 08/13/18 13:21 APTT 34.0 SECONDS (21-34) 08/13/18 13:21 Assessment and Plan (1) Acute bronchitis Status: Acute (2) Asthma exacerbation Status: Acute
--- NOTE | 2018-08-14 18:37 | CARD ---
APPROVED REPORT Date of service: 08/13/2018 EKG Measurement Heart [id number] <Conclusion> Normal sinus rhythm with sinus arrhythmia Left axis deviation Right bundle branch block Abnormal ECG
--- NOTE | 2018-08-14 19:38 | CP.PCM.CON ---
History of Present Illness - History of Present Illness History of Present Illness: Patient is an 82yo AA F that originally presented to with shortness of breath, x1 day. The patient reported no inciting factors that lead to this episode of dyspnea. The patients reports that she had developed a cough with yellow sputum around the same time as the dyspnea. The patient also complains of LE edema bilaterally. The patient currently denies, chest pain, palpitations, nausea, vomiting, fever, nasal congestion, abd pain, joint pain. At the examination SOB has improved. Edema has reduced. No chest pain. Review of Systems - Constitutional Constitutional: As Per HPI - EENT Eyes: As Per HPI Nose/Mouth/Throat: As Per HPI - Breasts Breasts: As Per HPI - Cardiovascular Cardiovascular: As Per HPI - Respiratory Respiratory: As Per HPI - Gastrointestinal Gastrointestinal: As Per HPI - Neurological Neurological: As Per HPI Past Patient History - Infectious Disease Hx of Infectious Diseases: None - Past Medical History & Family History Past Medical History?: Yes - Past Social History Smoking Status: Never Smoked - CARDIAC Hx Hypercholesterolemia: Yes Hx Hypertension: Yes - PULMONARY Hx Chronic Obstructive Pulmonary Disease (COPD): Yes - NEUROLOGICAL Hx Neurological Disorder: Yes Hx Dizziness: Yes - HEENT Hx HEENT Problems: Yes Hx Epistaxis: Yes Hx Glaucoma: Yes Other/Comment: 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 wear glasses for poor vision - RENAL Hx Chronic Kidney Disease: No - ENDOCRINE/METABOLIC Hx Hypothyroidism: Yes - HEMATOLOGICAL/ONCOLOGICAL Hx Blood Disorders: Yes Hx Blood Transfusions: Yes - INTEGUMENTARY Hx Dermatological Problems: No - MUSCULOSKELETAL/RHEUMATOLOGICAL Hx Arthritis: Yes - GASTROINTESTINAL Hx Gall Bladder Disease: Yes Hx Gastritis: Yes - GENITOURINARY/GYNECOLOGICAL Hx Genitourinary Disorders: No - PSYCHIATRIC Hx Substance Use: No - SURGICAL HISTORY Hx Cholecystectomy: Yes - ANESTHESIA Hx Anesthesia: Yes Hx Anesthesia Reactions: No Hx Malignant Hyperthermia: No Meds Allergies/Adverse Reactions: Allergies Allergy/AdvReac Type Severity Reaction Status Date / Time FISH AdvReac VOMITING Verified 08/03/18 08:49 seasonal Allergy CONGESTION Uncoded 08/03/18 08:49 - Medications Medications: Current Medications Acetaminophen (Tylenol 325mg Tab) 650 mg PO Q4H PRN PRN Reason: Pain, Mild (1-3) / Fever Albuterol/Ipratropium (Duoneb 3 Mg/0.5 Mg (3 Ml) Ud) 3 ml IH RQ6 [facility] Last Admin: 08/14/18 13:33 Dose: 3 ml Arformoterol Tartrate (Brovana) 15 mcg INH RQ12 [facility] Last Admin: 08/14/18 07:32 Dose: 15 mcg Aspirin (Ecotrin) 81 mg PO DAILY [facility] Last Admin: 08/14/18 09:06 Dose: 81 mg Budesonide (Pulmicort Respules) 0.5 mg INH RQ12 [facility] Last Admin: 08/14/18 07:32 Dose: 0.5 mg Calcium Carbonate (Tums) 1,000 mg PO DAILY [facility] Last Admin: 08/14/18 09:06 Dose: 1,000 mg Carvedilol (Coreg) 12.5 mg PO DAILY [facility] Last Admin: 08/14/18 09:06 Dose: 12.5 mg Dicyclomine HCl (Bentyl) 10 mg PO BID [facility] Last Admin: 08/14/18 17:20 Dose: 10 mg Enalapril Maleate (Vasotec) 20 mg PO BID [facility] Last Admin: 08/14/18 17:19 Dose: 20 mg Ergocalciferol (Drisdol 50,000 Intl Units Cap) 1 cap PO QWK [facility] Heparin Sodium (Porcine) (Heparin) 5,000 units SC Q12 [facility] Levothyroxine Sodium (Synthroid) 50 mcg PO DAILY@0630 [facility] Last Admin: 08/14/18 05:44 Dose: 50 mcg Loratadine (Claritin) 10 mg PO DAILY [facility] Last Admin: 08/14/18 09:06 Dose: 10 mg Methylprednisolone (Solu-Medrol) 40 mg IVP Q12 [facility] Last Admin: 08/14/18 09:07 Dose: 40 mg Montelukast Sodium (Singulair) 10 mg PO DAILY [facility] Last Admin: 08/14/18 09:05 Dose: 10 mg Pantoprazole Sodium (Protonix Ec Tab) 40 mg PO DAILY [facility] Last Admin: 08/14/18 09:04 Dose: 40 mg Rosuvastatin Calcium (Crestor) 5 mg PO HS [facility] Last Admin: 08/13/18 22:08 Dose: 5 mg Spironolactone (Aldactone) 25 mg PO DAILY [facility] Last Admin: 08/14/18 09:06 Dose: 25 mg Physical Exam - Head Exam Head Exam: NORMOCEPHALIC - Neck Exam Neck exam: Positive for: Normal Inspection - Respiratory Exam Respiratory Exam: NORMAL BREATHING PATTERN - Cardiovascular Exam Cardiovascular Exam: REGULAR RHYTHM, Systolic Murmur - Extremities Exam Extremities exam: Positive for: normal inspection Additional comments: Signs of chronic venous stasis. Results - Vital Signs Recent Vital Signs: Last Vital Signs Temp 97.7 F 08/14/18 15:38 Pulse 75 08/14/18 15:38 Resp 20 08/14/18 15:38 BP 142/83 08/14/18 17:19 Pulse Ox 95 08/14/18 15:38 - Labs Result Diagrams: 08/13/18 13:21 08/13/18 13:21 Assessment & Plan (1) Chest pain Assessment and Plan: Atypical, Troponin negative. Consider echocardiogram to assess LV systolic function. Status: Acute (2) Dyspnea Assessment and Plan: Most likely pulmonary origin and aggravated by obesity. Treat underlying cause. Consider Echocardiogram to assess Pulmonary hypertension and LV function. Status: Acute
[2018-08-15] MEDS: Albuterol-Ipratrop 3 mg / 0.5 (3 ml) UD IH SCH ×4 (01:15→19:22)
[2018-08-15] MEDS: Levothyroxine 50 MCG TAB PO SCH (06:13)
--- NOTE | 2018-08-15 06:35 | PN ---
DATE: 08/14/2018 SUBJECTIVE: The patient is an 82-year-old female. The patient was seen and examined at the bedside on 08/14/2018, looking comfortable. No fever. No chills. No hematuria. No hematochezia. No headache, no dizziness. No chest pain. No palpitations. Coughing is better. Shortness of breath is better. She is getting tightness of the chest when she is coughing, seen by reconciliation analyst and ar manager. PHYSICAL EXAMINATION: VITAL SIGNS: Temperature 97.7, pulse 82, respiratory rate 20, blood pressure 140/77, pulse oximetry 98. HEENT: Head is normocephalic, atraumatic. Eyes PERRLA. Extraocular muscles intact. Conjunctivae clear. Nose patent. Mucous membranes moist. NECK: Supple. No carotid bruits. No JVD or thyromegaly. CHEST: Bilaterally symmetrical. HEART: S1 and S2 positive. LUNGS: Clear to auscultation. ABDOMEN: Soft. Bowel sounds present. No organomegaly. EXTREMITIES: No edema. No cyanosis. NEUROLOGICAL: The patient is awake, alert. Moving all four extremities. No focal deficits. MEDICATIONS: Tylenol, DuoNeb, Brovana, Pulmicort, Tums, Bentyl, Vasotec, heparin, Aldactone. LABORATORY DATA: White blood cell 8.9, hemoglobin 11.4, hematocrit 35.1, and platelets 265. Sodium 134, potassium 4.2, BUN 10, creatinine 0.8, glucose 93. ASSESSMENT AND PLAN: The patient is an 82-year-old female with acute bronchitis, asthma exacerbation, came with chest pain and shortness of breath for one day, history of dyspnea, bronchitis, degenerative joint disease, history of obesity, chronic obstructive pulmonary disease, history of diverticulitis, hypertension, hypercholesterolemia, history of epistaxis, glaucoma, hypothyroidism, anemia, status post blood transfusion, history of gastritis, seeing Dr. 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 We will continue steroid, DuoNeb, Pulmicort. Repeat labs. Out of bed physical therapy. We will follow. Sherron Lane MD MTDDenys
[2018-08-15] MEDS: Arformoterol 15 mcg/2 ml Inh Sol INH SCH ×2 (07:20→22:19)
[2018-08-15] MEDS: Budesonide 0.5 mg/2 ml Inhal Susp UD INH SCH ×2 (07:20→19:22)
[2018-08-15] MEDS: MethylPREDNISolone 40 mg Vial IVP SCH ×2 (09:13→21:52)
[2018-08-15] MEDS: Pantoprazole 40 mg EC Tab PO SCH (09:14)
[2018-08-15] MEDS: Calcium Carbonate 500 mg Chewable Antacid Tab PO SCH (09:16)
[2018-08-15 14:15] LABS: HEMOGLOBIN 11.2 g/dL (11.0-16.0); LYMPH % 6.5 % (20.0-40.0); MEAN CELL VOLUME 84.7 fL (81.0-99.0); MEAN CORPUSCULAR HEMOGLOBIN 27.6 pg (27.0-31.0); MEAN CORPUSCULAR HGB CONC 32.6 g/dL (33.0-37.0); MEAN PLATELET VOLUME 8.5 fL (7.2-11.7); MONO # 0.4 K/uL (0.0-0.8); MONO % 2.7 % (0.0-10.0); NEUT # 14.2 K/uL (1.8-7.0); NEUT % 90.8 % (50.0-75.0); PLATELET COUNT 300 K/uL (130-400); RBC 4.06 Mil/uL (3.80-5.20); RED CELL DISTRIBUTION WIDTH 14.7 % (11.5-14.5)
[2018-08-15 14:16] LABS: WHITE BLOOD COUNT 15.6 K/uL (4.8-10.8)
[2018-08-15 14:25] LABS: ALB/GLOB RATIO 1.3 (1.0-2.1); ALBUMIN 4.3 g/dL (3.5-5.0); ALT/SGPT 16 U/L (9-52); AST/SGOT 31 U/L (14-36); BLOOD UREA NITROGEN 22 mg/dL (7-17); CALCIUM 9.8 mg/dl (8.6-10.4); GFR NON-AFRICAN AMERICAN > 60
[2018-08-15 14:30] LABS: INR 1.1; PROTHROMBIN TIME 11.7 SECONDS (9.7-12.2)
[2018-08-15 14:32] LABS: HYPOCHROMIC SLIGHT; LYMPHOCYTE 6 % (20-40); MONOCYTE 4 % (0-10); NEUTROPHIL 90 % (50-75); PLATELET ESTIMATE NORMAL (NORMAL); TOTAL CELLS COUNTED 100; TOXIC GRANULATION PRESENT
--- NOTE | 2018-08-15 16:19 | PN ---
DATE: 08/15/2018 LOCATION: 657, bed A. SUBJECTIVE: I was called for GI consultation by the staff in the floor as well as the patient herself. The patient is initially seen for GI consultation on 08/14/2018, reexamined again today with a complaint of intermittent period of shortness of breath, wheezing, midepigastric pain, with constipation on and off recently associated with dyspepsia, but no chills or fever. No reported recent history of chest pain or palpitation. Keeping in mind that I know this patient for the last several years and recently she had a colonoscopy on 08/04/2018, report is available in the chart. No reported active GI bleeding. Past medical history including but not limited to; 1. Diverticulosis. 2. COPD. 3. Hypertension, congestive heart failure with hyperlipidemia and hypothyroidism. 4. Reported history of peripheral edema before with pneumonia. 5. Status post cholecystectomy. Most recent lab results showed normal CBC with AST slightly elevated to 38. None ordered for today. PHYSICAL EXAMINATION: GENERAL: An 82-year-old female awake, alert, oriented. VITAL SIGNS: Afebrile with pulse of 80, respiratory rate 20-22, and blood pressure 154/78. HEENT: Showed pale, dry oral mucous membrane. Nonicteric sclerae. LUNGS: Few scattered crepitation. Decreased air entry at bases. HEART: Positive S1 and S2. ABDOMEN: Soft with mild generalized tenderness. No mass or organomegaly. No rebound tenderness or guarding. Bowel sounds are hypoactive. EXTREMITIES: Lower extremities with chronic edematous changes. No clubbing or cyanosis. NEUROLOGICAL: No reported new neurological deficit, sensory or motor. IMPRESSION: 1. Re-exacerbation of chronic obstructive pulmonary disease. 2. Re-exacerbation of peptic ulcer disease. 3. Recently done colonoscopy with biopsy indicative of severe diverticulosis with mild colitis and internal hemorrhoids. SUGGESTIONS: 1. Agree with your plan. 2. Cancer markers. 3. No citrus, no seeds. 4. Guaiac all the stools daily x3. 5. Further recommendation to follow and no need for aggressive GI workup in the meantime until the patient is more stable clinically. Brian Cuba MD
[2018-08-15 16:39] VITALS: RESP 20
--- NOTE | 2018-08-15 17:51 | CP.PCM.PN ---
Subjective - Date & Time of Evaluation Date of Evaluation: 08/15/18 Time of Evaluation: 17:48 - Subjective Subjective: Denies any chest pain but still have some SOB. Objective - Vital Signs/Intake and Output Vital Signs (last 24 hours): Temp Pulse Resp BP Pulse Ox 97.5 F L 51 L 20 170/77 H 96 08/15/18 15:37 08/15/18 15:37 08/15/18 15:37 08/15/18 17:15 08/15/18 15:37 Intake and Output: 08/15/18 08/15/18 06:59 18:59 Intake Total 350 Balance 350 - Medications Medications: Current Medications Acetaminophen (Tylenol 325mg Tab) 650 mg PO Q4H PRN PRN Reason: Pain, Mild (1-3) / Fever Albuterol/Ipratropium (Duoneb 3 Mg/0.5 Mg (3 Ml) Ud) 3 ml IH RQ6 [facility] Last Admin: 08/15/18 13:15 Dose: 3 ml Arformoterol Tartrate (Brovana) 15 mcg INH RQ12@1000,2200 [facility] Aspirin (Ecotrin) 81 mg PO DAILY [facility] Last Admin: 08/15/18 09:14 Dose: 81 mg Budesonide (Pulmicort Respules) 0.5 mg INH RQ12 [facility] Last Admin: 08/15/18 07:20 Dose: 0.5 mg Calcium Carbonate (Tums) 1,000 mg PO DAILY [facility] Last Admin: 08/15/18 09:16 Dose: 1,000 mg Carvedilol (Coreg) 12.5 mg PO DAILY [facility] Last Admin: 08/15/18 09:14 Dose: 12.5 mg Dicyclomine HCl (Bentyl) 10 mg PO BID [facility] Last Admin: 08/15/18 17:15 Dose: 10 mg Enalapril Maleate (Vasotec) 20 mg PO BID [facility] Last Admin: 08/15/18 17:15 Dose: 20 mg Ergocalciferol (Drisdol 50,000 Intl Units Cap) 1 cap PO QWK [facility] Heparin Sodium (Porcine) (Heparin) 5,000 units SC Q12 [facility] Last Admin: 08/15/18 09:13 Dose: 5,000 units Levothyroxine Sodium (Synthroid) 50 mcg PO DAILY@0630 [facility] Last Admin: 08/15/18 06:13 Dose: 50 mcg Loratadine (Claritin) 10 mg PO DAILY [facility] Last Admin: 08/15/18 09:14 Dose: 10 mg Methylprednisolone (Solu-Medrol) 40 mg IVP Q12 [facility] Last Admin: 08/15/18 09:13 Dose: 40 mg Montelukast Sodium (Singulair) 10 mg PO DAILY [facility] Last Admin: 08/15/18 09:15 Dose: 10 mg Pantoprazole Sodium (Protonix Ec Tab) 40 mg PO DAILY [facility] Last Admin: 08/15/18 09:14 Dose: 40 mg Rosuvastatin Calcium (Crestor) 5 mg PO HS [facility] Last Admin: 08/14/18 22:07 Dose: 5 mg Spironolactone (Aldactone) 25 mg PO DAILY [facility] Last Admin: 08/15/18 09:15 Dose: 25 mg - Labs Labs: 08/15/18 14:01 08/15/18 14:01 PT 11.7 SECONDS (9.7-12.2) 08/15/18 14:01 INR 1.1 08/15/18 14:01 APTT 33.0 SECONDS (21-34) 08/15/18 14:01 - Neck Exam Neck Exam: Normal Inspection - Respiratory Exam Respiratory Exam: NORMAL BREATHING PATTERN - Cardiovascular Exam Cardiovascular Exam: REGULAR RHYTHM - Extremities Exam Extremities Exam: Normal Inspection - Neurological Exam Neurological Exam: Alert, Oriented x3 Assessment and Plan (1) Chest pain Assessment & Plan: No new episodes. Continue current care. Status: Acute (2) Dyspnea Assessment & Plan: Secondary to asthma, Continue respiratory treatment. Status: Acute
--- NOTE | 2018-08-15 18:16 | CP.PCM.PN ---
Subjective - Date & Time of Evaluation Date of Evaluation: 08/15/18 Time of Evaluation: 11:45 - Subjective Subjective: Patient was seen and examined at bedside. She states that her SOB is mildly improving. The patient currently denies: chest pain, palpitations, nausea, vomiting, and fever. O: General: NAD, well appearing female HEENT: mucous membranes moist, normal inspection. Cardio: RRR s1 and s2 present Pulm: normal breathing pattern, +wheezing GI: + bowel sound in all 4 quadrants Extremities: mild pedal edema, chronic venous stasis bilaterally CXR 08/13 shows no active pulmonary disease and severe cardiomegaly. A: 82 year old AA female that originally presented to with shortness of breath, x1 day. The patient reported no inciting factors that lead to this episode of dyspnea. The patients reports that she had developed a cough with yellow sputum around the same time as the dyspnea. The patient also complains of LE edema bilaterally. Patient is clinically improving. P: Acute Bronchitis Add mucomist continue Duoneb, pulmicort, solumedrol, brovana, singular continue diaretic; spironolactone As per cardio: recommends Echo to assess pulmonary hypertension and LV function All further management as per primary team Objective - Vital Signs/Intake and Output Vital Signs (last 24 hours): Temp Pulse Resp BP Pulse Ox 97.5 F L 51 L 20 170/77 H 96 08/15/18 15:37 08/15/18 15:37 08/15/18 15:37 08/15/18 17:15 08/15/18 15:37 Intake and Output: 08/15/18 08/15/18 06:59 18:59 Intake Total 350 Balance 350 - Medications Medications: Current Medications Acetaminophen (Tylenol 325mg Tab) 650 mg PO Q4H PRN PRN Reason: Pain, Mild (1-3) / Fever Albuterol/Ipratropium (Duoneb 3 Mg/0.5 Mg (3 Ml) Ud) 3 ml IH RQ6 [facility] Last Admin: 08/15/18 13:15 Dose: 3 ml Arformoterol Tartrate (Brovana) 15 mcg INH RQ12@1000,2200 [facility] Aspirin (Ecotrin) 81 mg PO DAILY [facility] Last Admin: 08/15/18 09:14 Dose: 81 mg Budesonide (Pulmicort Respules) 0.5 mg INH RQ12 [facility] Last Admin: 08/15/18 07:20 Dose: 0.5 mg Calcium Carbonate (Tums) 1,000 mg PO DAILY [facility] Last Admin: 08/15/18 09:16 Dose: 1,000 mg Carvedilol (Coreg) 12.5 mg PO DAILY [facility] Last Admin: 08/15/18 09:14 Dose: 12.5 mg Dicyclomine HCl (Bentyl) 10 mg PO BID [facility] Last Admin: 08/15/18 17:15 Dose: 10 mg Enalapril Maleate (Vasotec) 20 mg PO BID [facility] Last Admin: 08/15/18 17:15 Dose: 20 mg Ergocalciferol (Drisdol 50,000 Intl Units Cap) 1 cap PO QWK [facility] Heparin Sodium (Porcine) (Heparin) 5,000 units SC Q12 [facility] Last Admin: 08/15/18 09:13 Dose: 5,000 units Levothyroxine Sodium (Synthroid) 50 mcg PO DAILY@0630 [facility] Last Admin: 08/15/18 06:13 Dose: 50 mcg Loratadine (Claritin) 10 mg PO DAILY [facility] Last Admin: 08/15/18 09:14 Dose: 10 mg Methylprednisolone (Solu-Medrol) 40 mg IVP Q12 [facility] Last Admin: 08/15/18 09:13 Dose: 40 mg Montelukast Sodium (Singulair) 10 mg PO DAILY [facility] Last Admin: 08/15/18 09:15 Dose: 10 mg Pantoprazole Sodium (Protonix Ec Tab) 40 mg PO DAILY [facility] Last Admin: 08/15/18 09:14 Dose: 40 mg Rosuvastatin Calcium (Crestor) 5 mg PO HS [facility] Last Admin: 08/14/18 22:07 Dose: 5 mg Spironolactone (Aldactone) 25 mg PO DAILY [facility] Last Admin: 08/15/18 09:15 Dose: 25 mg - Labs Labs: 08/15/18 14:01 08/15/18 14:01 PT 11.7 SECONDS (9.7-12.2) 08/15/18 14:01 INR 1.1 08/15/18 14:01 APTT 33.0 SECONDS (21-34) 08/15/18 14:01 Assessment and Plan (1) Acute bronchitis Status: Acute (2) Asthma exacerbation Status: Acute
[2018-08-16] MEDS: Albuterol-Ipratrop 3 mg / 0.5 (3 ml) UD IH SCH ×4 (02:06→19:21)
--- NOTE | 2018-08-16 05:54 | PN ---
DATE: 08/15/2018 SUBJECTIVE: The patient is an 82-year-old female. The patient is seen and examined at the bedside on 08/15/2018. Still coughing with just mild shortness of breath. No nausea, vomiting. No hematuria or hematochezia. No headache. No dizziness. No chest pain. No palpitations. PHYSICAL EXAMINATION: VITAL SIGNS: Temperature 97.5, pulse rate 62, respiratory rate 20, blood pressure 120 /77, pulse oximetry 96%. HEENT: Head is normocephalic, atraumatic. Eyes PERRLA. Extraocular muscles intact. Conjunctivae clear. Nose patent. Mucous membranes moist. NECK: Supple. No carotid bruits. No JVD or thyromegaly. CHEST: Bilaterally symmetrical. HEART: S1 and S2 positive. LUNGS: Clear to auscultation. ABDOMEN: Soft. Bowel sounds present. No organomegaly. EXTREMITIES: No edema. No cyanosis. NEUROLOGICAL: The patient is awake, alert. Moving all four extremities. No focal deficits. MEDICATIONS: DuoNeb, Brovana, Ecotrin, Pulmicort, Coreg, Vasotec, vitamin D, levothyroxine, Claritin, Solu-Medrol, Singulair, Protonix, Crestor, Aldactone. LABORATORY DATA: White blood cells 15.6, hemoglobin 11.2, hematocrit 34.4, platelets 300. Sodium 139, potassium 4.3, BUN 22, creatinine 0.8, glucose 128. ASSESSMENT AND PLAN: Ms. Jacqui Rasmussen is an 82-year-old female with hyperglycemia, chest pain, no new onset. Continue current care as per Cardiology. Dyspnea secondary to asthma. Continue respiratory treatment. Obesity, hypothyroidism, hypertension, history of diverticulitis, history of pneumonia, re-exacerbation of chronic obstructive pulmonary disease, re-exacerbation of peptic ulcer disease. She has recently done colonoscopy with biopsy indicative of severe diverticulosis with mild colitis and intermittent hemorrhoids. Continue present treatment. Stool guaiac x3. DuoNeb. Repeat labs. We will follow up. Sherron Lane MD [facility]
[2018-08-16] MEDS: Levothyroxine 50 MCG TAB PO SCH (06:23)
[2018-08-16] MEDS: Budesonide 0.5 mg/2 ml Inhal Susp UD INH SCH ×2 (08:20→19:21)
[2018-08-16] MEDS: Arformoterol 15 mcg/2 ml Inh Sol INH SCH ×2 (08:21→21:55)
[2018-08-16] MEDS: MethylPREDNISolone 40 mg Vial IVP SCH ×2 (09:27→21:51)
[2018-08-16] MEDS: Pantoprazole 40 mg EC Tab PO SCH (09:28)
[2018-08-16] MEDS: Calcium Carbonate 500 mg Chewable Antacid Tab PO SCH (10:11)
--- NOTE | 2018-08-16 12:01 | CP.PCM.PN ---
Subjective - Date & Time of Evaluation Date of Evaluation: 08/16/18 Time of Evaluation: 11:00 - Subjective Subjective: Patient seen and examined Overnight could not sleep because of cough Denies fever chills, denies chest pain Objective - Vital Signs/Intake and Output Vital Signs (last 24 hours): Temp Pulse Resp BP Pulse Ox 97.7 F 60 20 177/92 H 96 08/16/18 07:00 08/16/18 07:19 08/16/18 07:00 08/16/18 08:16 08/16/18 11:23 - Medications Medications: Current Medications Acetaminophen (Tylenol 325mg Tab) 650 mg PO Q4H PRN PRN Reason: Pain, Mild (1-3) / Fever Albuterol/Ipratropium (Duoneb 3 Mg/0.5 Mg (3 Ml) Ud) 3 ml IH RQ6 [facility] Last Admin: 08/16/18 08:21 Dose: 3 ml Arformoterol Tartrate (Brovana) 15 mcg INH RQ12@1000,2200 [facility] Aspirin (Ecotrin) 81 mg PO DAILY [facility] Last Admin: 08/16/18 09:27 Dose: 81 mg Budesonide (Pulmicort Respules) 0.5 mg INH RQ12 [facility] Last Admin: 08/16/18 08:20 Dose: 0.5 mg Calcium Carbonate (Tums) 1,000 mg PO DAILY [facility] Last Admin: 08/16/18 10:11 Dose: 1,000 mg Carvedilol (Coreg) 12.5 mg PO DAILY [facility] Last Admin: 08/16/18 09:10 Dose: Not Given Dicyclomine HCl (Bentyl) 10 mg PO BID [facility] Last Admin: 08/16/18 10:10 Dose: 10 mg Enalapril Maleate (Vasotec) 20 mg PO BID [facility] Last Admin: 08/16/18 09:05 Dose: Not Given Ergocalciferol (Drisdol 50,000 Intl Units Cap) 1 cap PO QWK [facility] Heparin Sodium (Porcine) (Heparin) 5,000 units SC Q12 [facility] Last Admin: 08/16/18 09:27 Dose: 5,000 units Levothyroxine Sodium (Synthroid) 50 mcg PO DAILY@0630 [facility] Last Admin: 08/16/18 06:23 Dose: 50 mcg Methylprednisolone (Solu-Medrol) 40 mg IVP Q12 [facility] Last Admin: 08/16/18 09:27 Dose: 40 mg Montelukast Sodium (Singulair) 10 mg PO DAILY [facility] Last Admin: 08/16/18 09:27 Dose: 10 mg Pantoprazole Sodium (Protonix Ec Tab) 40 mg PO DAILY [facility] Last Admin: 08/16/18 09:28 Dose: 40 mg Promethazine HCl (Phenergan Syrup) 6.25 mg PO Q6 PRN PRN Reason: Cough Rosuvastatin Calcium (Crestor) 5 mg PO HS [facility] Last Admin: 08/15/18 21:52 Dose: 5 mg Spironolactone (Aldactone) 25 mg PO DAILY [facility] Last Admin: 08/16/18 09:28 Dose: 25 mg - Labs Labs: 08/15/18 14:01 08/15/18 14:01 PT 11.7 SECONDS (9.7-12.2) 08/15/18 14:01 INR 1.1 08/15/18 14:01 APTT 33.0 SECONDS (21-34) 08/15/18 14:01 - Head Exam Head Exam: ATRAUMATIC, NORMOCEPHALIC - ENT Exam ENT Exam: Mucous Membranes Moist - Neck Exam Neck Exam: Normal Inspection - Respiratory Exam Respiratory Exam: Rhonchi, Wheezes - Cardiovascular Exam Cardiovascular Exam: REGULAR RHYTHM - GI/Abdominal Exam GI & Abdominal Exam: Soft, Normal Bowel Sounds - Extremities Exam Extremities Exam: Pedal Edema Assessment and Plan (1) Acute bronchitis Assessment & Plan: Continue nebulizer treatment and steroids Started on promethazine continue diuretics Antibiotics Status: Acute (2) Asthma exacerbation Status: Acute
--- NOTE | 2018-08-16 12:18 | PN ---
DATE: 08/16/2018 LOCATION: 667, bed A. SUBJECTIVE: This is an 82-year-old female seen and examined early today with intermittent period of abdominal pain, postprandial abdominal distention, reported recent constipation with nonproductive cough on and off and slight shortness of breath, but no actual chest pain or palpitation. No reported active bleeding. The entire chart is reviewed including, but not limited to the most recent lab and radiology study results, current and the previous medication list, current and previous medical events. Case discussed with Dr. Lane at length. LABORATORY DATA: Most recent lab results as per record showed leukocytosis 15.6 with normal hemoglobin and hematocrit, BUN 22, creatinine normal, blood glucose level 128 with normal liver function test as well as normal troponin level with normal CEA. PHYSICAL EXAMINATION: GENERAL: An 82-year-old female. Awake, alert, oriented. VITAL SIGNS: Afebrile with pulse of 62, respiratory rate 20 to 22, blood pressure of 170/90. HEENT: Showed pale, dry mucous membrane. Nonicteric sclerae. LUNGS: Few scattered crepitation. Decreased air entry at bases. HEART: Positive S1 and S2. ABDOMEN: Soft with mild generalized tenderness. No masses or organomegaly. No rebound tenderness or guarding. EXTREMITIES: Lower extremity mild edematous changes. No clubbing or cyanosis. IMPRESSION: 1. Re-exacerbation of chronic obstructive pulmonary disease. 2. Peptic ulcer disease. 3. Diverticulosis with change of bowel movement and mild diverticulitis by recent history. 4. Internal hemorrhoids by recent colonoscopy. SUGGESTIONS: 1. Agree with your plan. 2. High-fiber diet, no seeds. 3. Colace one tablet three times a day. 4. Continue current IV antibiotics, preferred vancomycin p.o. Further recommendation to follow. Brian Cuba MD
[2018-08-16] MEDS: Azithromycin 500 MG in Sodium Chloride 0.9% 250 ML IVPB SCH (12:45)
[2018-08-16] MEDS: Promethazine 6.25 MG/5 ML CUP PO PRN (13:04)
--- NOTE | 2018-08-16 20:33 | PN ---
DATE: 08/16/2018 SUBJECTIVE: The patient is 82-year-old female. The patient is seen at the bedside, looking comfortable. Still complaining of shortness of breath. Pulmonary resident was also at the bedside who promised to give her antitussive medications. No fever. No chills. No hematuria or hematochezia. No headache or dizziness. No chest pain or palpitations. PHYSICAL EXAMINATION: VITAL SIGNS: Temperature 97.7, pulse 60, respiratory rate 20, blood pressure 170/92, pulse oximetry 96%. HEENT: Head: Normocephalic, atraumatic. Eyes: PERRLA. Extraocular muscles intact. Conjunctivae clear. Nose patent. NECK: Supple. No carotid bruit, JVD or thyromegaly. CHEST: Bilaterally symmetrical. HEART: S1 and S2 positive. LUNGS: Clear to auscultation. ABDOMEN: Soft. Bowel sounds present. No organomegaly. EXTREMITIES: No edema. No cyanosis. NEUROLOGICAL: The patient is awake and alert, moving all four extremities. No focal deficits. MEDICATIONS: Tylenol, DuoNeb, Brovana, Pulmicort, Tums, Carvedilol, Bentyl, enalapril, levothyroxine, Solu-Medrol, pantoprazole. LABORATORY DATA: White blood cell 15.6, hemoglobin 11.2, hematocrit 34.4, platelet 300. Sodium 130, potassium 4.3, BUN 22, creatinine 0.8, glucose 128. ASSESSMENT AND PLAN: Ms. Jacqui Rasmussen is an 82-year-old female with leukocytosis, renal insufficiency and hyperglycemia, came with acute bronchitis. Pulmonary is on the case. Starting nebulizer treatment and steroids. As per bulldozer operator started on promethazine. Continue antibiotics, asthma exacerbation, history of diverticulitis, hypothyroidism, coronary artery disease. Seen by Dr. Brian Cuba, re-exacerbation of chronic obstructive pulmonary disease, peptic ulcer disease, diverticulosis with change of bowel movements and diverticulitis, internal hemorrhoids recently by colonoscopy. Continue high-fiber diet. Will use steroids, antibiotics. Repeat labs. We will follow up. Sherron Lane MD [facility]
[2018-08-17] MEDS: Albuterol-Ipratrop 3 mg / 0.5 (3 ml) UD IH SCH ×4 (01:11→20:02)
[2018-08-17] MEDS: Levothyroxine 50 MCG TAB PO SCH (06:51)
[2018-08-17] MEDS: Budesonide 0.5 mg/2 ml Inhal Susp UD INH SCH ×2 (08:05→20:03)
--- NOTE | 2018-08-17 08:56 | CP.PCM.PN ---
Subjective - Date & Time of Evaluation Date of Evaluation: 08/17/18 Time of Evaluation: 07:40 - Subjective Subjective: Patient seen and examined Still complaining of cough with slight improvement Also complaining of wheezing which is mostly at night Denies fever chills, denies chest pain Objective - Vital Signs/Intake and Output Vital Signs (last 24 hours): Temp Pulse Resp BP Pulse Ox 98.3 F 68 20 190/80 H 97 08/17/18 07:00 08/17/18 07:00 08/17/18 07:00 08/17/18 07:00 08/17/18 07:00 - Medications Medications: Current Medications Acetaminophen (Tylenol 325mg Tab) 650 mg PO Q4H PRN PRN Reason: Pain, Mild (1-3) / Fever Albuterol/Ipratropium (Duoneb 3 Mg/0.5 Mg (3 Ml) Ud) 3 ml IH RQ6 [facility] Last Admin: 08/17/18 01:11 Dose: Not Given Arformoterol Tartrate (Brovana) 15 mcg INH RQ12@1000,2200 [facility] Last Admin: 08/16/18 21:55 Dose: 15 mcg Aspirin (Ecotrin) 81 mg PO DAILY [facility] Last Admin: 08/16/18 09:27 Dose: 81 mg Budesonide (Pulmicort Respules) 0.5 mg INH RQ12 [facility] Last Admin: 08/16/18 19:21 Dose: 0.5 mg Calcium Carbonate (Tums) 1,000 mg PO DAILY [facility] Last Admin: 08/16/18 10:11 Dose: 1,000 mg Carvedilol (Coreg) 12.5 mg PO DAILY [facility] Last Admin: 08/16/18 09:10 Dose: Not Given Dicyclomine HCl (Bentyl) 10 mg PO BID [facility] Last Admin: 08/16/18 17:07 Dose: 10 mg Enalapril Maleate (Vasotec) 20 mg PO BID [facility] Last Admin: 08/16/18 17:06 Dose: 20 mg Ergocalciferol (Drisdol 50,000 Intl Units Cap) 1 cap PO QWK [facility] Heparin Sodium (Porcine) (Heparin) 5,000 units SC Q12 [facility] Last Admin: 08/16/18 21:51 Dose: 5,000 units Azithromycin 500 mg/ Sodium (Chloride) 250 mls @ 250 mls/hr IVPB DAILY [facility]; Protocol Last Admin: 08/16/18 12:45 Dose: 250 mls/hr Levothyroxine Sodium (Synthroid) 50 mcg PO DAILY@0630 [facility] Last Admin: 08/17/18 06:51 Dose: 50 mcg Methylprednisolone (Solu-Medrol) 40 mg IVP Q12 [facility] Last Admin: 08/16/18 21:51 Dose: 40 mg Montelukast Sodium (Singulair) 10 mg PO DAILY [facility] Last Admin: 08/16/18 09:27 Dose: 10 mg Pantoprazole Sodium (Protonix Ec Tab) 40 mg PO DAILY [facility] Last Admin: 08/16/18 09:28 Dose: 40 mg Promethazine HCl (Phenergan Syrup) 6.25 mg PO Q6 PRN PRN Reason: Cough Last Admin: 08/16/18 13:04 Dose: 6.25 mg Rosuvastatin Calcium (Crestor) 5 mg PO HS [facility] Last Admin: 08/16/18 21:51 Dose: 5 mg Spironolactone (Aldactone) 25 mg PO DAILY [facility] Last Admin: 08/16/18 09:28 Dose: 25 mg - Labs Labs: 08/15/18 14:01 08/15/18 14:01 PT 11.7 SECONDS (9.7-12.2) 08/15/18 14:01 INR 1.1 08/15/18 14:01 APTT 33.0 SECONDS (21-34) 08/15/18 14:01 - Head Exam Head Exam: ATRAUMATIC, NORMOCEPHALIC - ENT Exam ENT Exam: Mucous Membranes Moist - Neck Exam Neck Exam: Normal Inspection - Respiratory Exam Respiratory Exam: Rhonchi - Cardiovascular Exam Cardiovascular Exam: REGULAR RHYTHM - GI/Abdominal Exam GI & Abdominal Exam: Soft Assessment and Plan (1) Acute bronchitis Assessment & Plan: Continue IV steroids, no tapering yet Nebulizer treatment Continue azithromycin Antitussive Status: Acute (2) Asthma exacerbation Status: Acute
[2018-08-17] MEDS: Pantoprazole 40 mg EC Tab PO SCH (09:02)
[2018-08-17] MEDS: MethylPREDNISolone 40 mg Vial IVP SCH ×2 (09:02→21:59)
[2018-08-17] MEDS: Calcium Carbonate 500 mg Chewable Antacid Tab PO SCH (09:02)
[2018-08-17] MEDS: Arformoterol 15 mcg/2 ml Inh Sol INH SCH ×2 (09:52→21:02)
[2018-08-17] MEDS: Azithromycin 500 MG in Sodium Chloride 0.9% 250 ML IVPB SCH (10:19)
--- NOTE | 2018-08-17 10:49 | PN ---
DATE: 08/17/2018 LOCATION: 657, bed A. SUBJECTIVE: This is an 82-year-old female seen and examined in rounds without significant clinical changes or reported active bleeding, with reported bowel movement recently with intermittent period of mild shortness of breath. No reported actual chills, palpitations, chest pain or dizziness. Most recent lab results for today is still pending. However, the patient still has mildly elevated blood glucose level and had exostosis previously. Rest of the lab results including liver function test reported to be within normal limit as well as CEA level. PHYSICAL EXAMINATION GENERAL: This is an 82-year-old female. VITAL SIGNS: Afebrile with pulse of 66, respiratory rate 20-22, blood pressure of 176/80. HEENT: Showed pale, dry, mucous membrane mildly, with nonicteric sclerae. LUNGS: Few scattered crepitation. Decreased air entry at bases. HEART: Positive S1 and S2. ABDOMEN: Soft with mild generalized tenderness, mildly obese with slight distention with midepigastric and left lower quadrant mild tenderness. No mass or organomegaly. No rebound tenderness or guarding. IMPRESSION: 1. Re-exacerbation of peptic ulcer disease. 2. Re-exacerbation of chronic obstructive pulmonary disease. 3. Diverticulosis with slight diverticulitis, improving SUGGESTIONS: 1. Agree with your plan. 2. Antireflux measures. 3. Guaiac all the stools daily x3. 4. Further recommendation to follow. Brian Cuba MD
[2018-08-17] MEDS: Promethazine 6.25 MG/5 ML CUP PO PRN ×2 (16:21→21:59)
[2018-08-18] MEDS: Albuterol-Ipratrop 3 mg / 0.5 (3 ml) UD IH SCH ×3 (02:56→13:18)
[2018-08-18] MEDS: Levothyroxine 50 MCG TAB PO SCH (06:40)
[2018-08-18] MEDS: Promethazine 6.25 MG/5 ML CUP PO PRN (06:42)
[2018-08-18] MEDS: Budesonide 0.5 mg/2 ml Inhal Susp UD INH SCH ×2 (07:18→19:41)
--- NOTE | 2018-08-18 08:25 | PN ---
DATE: 08/18/2018 LOCATION: 657, bed A. SUBJECTIVE: This is an 82-year-old female, seen and examined in rounds without significant clinical changes or reported active bleeding but intermittent period of severe cough, most of the time productive as per patient's statement, associated with abdominal pain and severe muscle spasm, most likely secondary to her progressive strong cough in addition to her midepigastric pain and periods of dyspepsia. The patient reported some inadequate bowel movement recently as she had been suffering from constipation. The entire chart is reviewed including but not limited to the most recent lab and radiology study results, current and the previous medication list and today's lab results still pending. PHYSICAL EXAMINATION: GENERAL: An 82-year-old female awake, alert, oriented. Denied any chest pain, palpitation, or chills or fever. VITAL SIGNS: Pulse of 86, respiratory rate 20 to 22, blood pressure of 140/82 and afebrile. HEENT: Showed pale, dry oral mucous membrane. Nonicteric sclerae, LUNGS: Few scattered crepitation. Decreased air entry at bases. HEART: Positive S1 and S2. ABDOMEN: Soft with mild generalized tenderness. No mass or organomegaly. No rebound tenderness or guarding. EXTREMITIES: Without significant clubbing or cyanosis but lower extremity edematous changes. NEUROLOGIC: No reported new neurological deficits, sensory or motor. In record, the patient still has episodes of wheezing, especially at night with abdominal cramps on and off. IMPRESSION: 1. Re-exacerbation of chronic obstructive pulmonary disease with acute bronchitis that could be secondary to viral versus allergies. 2. Re-exacerbation of peptic ulcer disease. 3. Diverticulosis with slight diverticulitis. 4. Acute muscle spasm secondary to above. SUGGESTIONS: 1. Agree with your plan. 2. May add Flexeril 10 mg p.o. twice a day if ok with the pulmonary senior research consultant. 3. tab one or twice a day. 4. Further recommendation to follow. Brian Cuba MD
--- NOTE | 2018-08-18 08:39 | CON ---
DATE: 08/14/[address] Brian Cuba to Dr. Lane. I was called for GI consultation by the admitting MD as well as by the patient herself. The patient is seen and examined on 08/14/2018 for GI consultation; the entire chart is reviewed including by not limited to most recent lab and radiology study results, current and the previous medication list, current and previous medical events, allergy to medication list as well as all the available current and the previous medical record. Case was discussed with Dr. Lane as well as the staff in the floor at length before and immediately after my GI consultation on 08/14/2018. HISTORY OF PRESENT ILLNESS: This is an 82-year-old female, very well known case for me who was admitted to the hospital with underlying diagnoses of re-exacerbation of bronchial asthma with shortness of breath, generalized weakness, malaise, wheezing, dyspepsia with recent change of bowel movement habit to more constipation, all associated with intermittent pain and intermittent period of non-radiating chest discomfort with slight pain on and off. The patient denies any chills, fever, or evidence of active GI bleeding. No reported palpitation. PAST MEDICAL HISTORY: Including mainly but not limited to, 1. Pepcid ulcer disease. 2. Diverticulosis with intermittent period of diverticulitis. 3. Hypertension. 4. Congestive heart failure with peripheral edema syndrome. 5. Chronic obstructive pulmonary disease with pneumonia before. 6. Osteoarthritis. 7. Hyperlipidemia. 8. Hypothyroidism with gallbladder disease as well as status post cholecystectomy. The patient recently had colonoscopy few days prior to her admission. FAMILY HISTORY: Unrelated to specific GI disorder. SOCIAL HISTORY: Reported recent history of cigarette smoking or alcohol intake. CURRENT MEDICATIONS: Post admission medication list reviewed. ALLERGY TO MEDICATION: LIST REVIEWED. LABORATORY DATA: Post admission lab results showed normal CBC with hemoglobin 11.4, hematocrit 35.2 with normal SMA-7 with PT 12.8 with normal PTT with normal troponin level with AST 44, normal total bilirubin, normal the rest of the liver function tests. PHYSICAL EXAMINATION GENERAL: An 82-year-old female. VITAL SIGNS: Afebrile at the time she was seen by me with pulse of 74, respiratory rate 20 to 22, blood pressure 170/78. HEENT: Showed pale, dry oral mucoid membrane. Nonicteric sclerae. LYMPH NODES: No lymphadenitis or lymphadenopathy. LUNGS: Scattered crepitation with decreased air entry at bases with mild rales bilaterally. HEART: Positive S1 and S2. ABDOMEN: Soft, obese with mild distention and mild generalized tenderness. Bowel sounds are hypoactive. No mass or organomegaly. No rebound tenderness or guarding. RECTAL: Deferred due to the patient's pulmonary status. EXTREMITIES: Lower extremities edematous changes. No clubbing or cyanosis. No reported focal new deficits. IMPRESSION: 1. Re-exacerbation of chronic obstructive pulmonary disease. 2. Re-exacerbation of peptic ulcer disease. 3. Change of bowel movement habits also likely secondary to her diverticulosis. 4. Multiple past medical history as mentioned above. SUGGESTION: 1. Agree with your plan. 2. Sectional abdominal and pelvic scan. 3. High-fiber diet, no seeds 4. Dulcolax one tablet p.o. p.r.n. in the meantime. 5. Guaiac all the stools daily x3. 6. Proton pump inhibitors IV. 7. Further recommendation to follow and no need for any excessive GI workup in the meantime. Thank you for letting me participate in your patient's case management. Brian Cuba MD
[2018-08-18] MEDS: Arformoterol 15 mcg/2 ml Inh Sol INH SCH ×2 (09:05→21:52)
[2018-08-18] MEDS: Belladonna-Phenobarbital PO SCH ×2 (09:45→17:57)
[2018-08-18] MEDS: Pantoprazole 40 mg EC Tab PO SCH (09:46)
[2018-08-18] MEDS: MethylPREDNISolone 40 mg Vial IVP SCH ×2 (09:46→22:05)
[2018-08-18] MEDS: Calcium Carbonate 500 mg Chewable Antacid Tab PO SCH (09:47)
[2018-08-18] MEDS: Azithromycin 500 MG in Sodium Chloride 0.9% 250 ML IVPB SCH (09:48)
--- NOTE | 2018-08-19 00:54 | PN ---
DATE: 08/18/2018 SUBJECTIVE: The patient is a 82-year-old female. The patient was seen and examined at the bedside on 08/18/2018 and looking comfortable. No fever. No chills. No hematuria or hematochezia. No headache or dizziness. No chest pain or palpitations. Still coughing with shortness of breath but improving. PHYSICAL EXAMINATION: VITAL SIGNS: Temperature 98.6, pulse 86, respiratory rate 18, blood pressure 140/82. HEENT: Normocephalic, atraumatic. Eyes: PERRLA. Extraocular muscles intact. Conjunctivae clear. Nose patent. Mucosal membranes moist. NECK: Supple. No carotid bruit, JVD or thyromegaly. CHEST: Bilaterally symmetrical. HEART: S1 and S2 positive. LUNGS: Clear to auscultation. ABDOMEN: Soft. Bowel sounds present. No organomegaly. EXTREMITIES: No edema. No cyanosis. NEUROLOGICAL: The patient is awake and alert, moving all four extremities. No focal deficits. MEDICATIONS: Aldactone, Bentyl, Brovana, Crestor, vitamin D, aspirin, heparin, Phenergan, Protonix, Singulair, Solu-Medrol, Synthroid, calcium, azithromycin, Enalapril, Tylenol. LABORATORY DATA: We do not have labs today but reviewed old labs. ASSESSMENT AND PLAN: Ms. Jacqui Rasmussen is an 82-year-old female with history of abnormal liver function tests with leukocytosis, anemia, came with exacerbation of chronic obstructive pulmonary disease and asthma, getting antibiotics and Solu-Medrol, improving. Re-exacerbation of chronic obstructive pulmonary disease and acute bronchitis that could be secondary to viral versus allergies versus allergies versus . Re-exacerbation of peptic ulcer disease, diverticulosis with slight diverticulitis. Acute muscle spasm secondary to chronic disease. Dr. Cuba added Flexeril, tablets twice a day. Continue Solu-Medrol and Zithromax. Out of bed, physical therapy. Repeat labs. Will follow up. Sherron Lane MD [facility]
--- NOTE | 2018-08-19 03:10 | PN ---
DATE: 08/17/2018 SUBJECTIVE: The patient was seen and examined on the bedside on 08/17/2018. Still coughing with shortness of breath, but better. Wheezing is better. No fever. No chills. No hematuria. No hematochezia. No headache. No dizziness. No chest pain. No palpitations. PHYSICAL EXAMINATION: VITAL SIGNS: Temperature 98.3, pulse 58, respiratory rate 20, blood pressure 190/80, pulse oximetry 97%. HEENT: Head: Normocephalic, atraumatic. Eyes: PERRLA. Extraocular movements intact. Conjunctivae clear. Nose patent. Mucous membranes moist. NECK: Supple. No carotid bruits. No JVD or thyromegaly. CHEST: Bilaterally symmetrical. HEART: S1 and S2 positive. LUNGS: Clear to auscultation. ABDOMEN: Soft. Bowel sounds present. No organomegaly. EXTREMITIES: No edema. No cyanosis. NEUROLOGIC: The patient is awake, alert. Moving all four extremities. No focal deficits. MEDICATIONS: Tylenol, Brovana, Ecotrin, Pulmicort, calcium, Bentyl, azithromycin, Solu-Medrol, Protonix. LABORATORY DATA: White blood cell 15.6, hemoglobin 11.2, hematocrit 34.4, platelets 300. Sodium noted , potassium 4.3, BUN 22, creatinine 0.8, glucose 128. ASSESSMENT AND PLAN: Ms. Jacqui Rasmussen is an 82-year-old female with leukocytosis, hyperglycemia, came with acute bronchitis, history of asthma and chronic obstructive pulmonary disease. Continue intravenous steroids with tapering doses. Nebulizer treatment. Continue azithromycin, antitussive. Pulmonary resident is on the case. Seen by the business solutions analyst also. Has history of diverticulitis, history of stomach ulcers, degenerative joint disease, congestive heart failure with peripheral edema syndrome, osteoarthritis, hypercholesterolemia, hypothyroidism, status post cholecystectomy. Continue antibiotics and steroids, antitussive, bronchodilators. We will follow up. Sherron Lane MD [facility]
[2018-08-19] MEDS: Levothyroxine 50 MCG TAB PO SCH (06:09)
[2018-08-19] MEDS: Promethazine 6.25 MG/5 ML CUP PO PRN (06:14)
[2018-08-19 07:13] LABS: MEAN CELL VOLUME 84.2 fL (81.0-99.0); MEAN CORPUSCULAR HEMOGLOBIN 26.7 pg (27.0-31.0); MEAN CORPUSCULAR HGB CONC 31.6 g/dL (33.0-37.0); MEAN PLATELET VOLUME 8.1 fL (7.2-11.7); RBC 4.98 Mil/uL (3.80-5.20); RED CELL DISTRIBUTION WIDTH 14.5 % (11.5-14.5); WHITE BLOOD COUNT 17.5 K/uL (4.8-10.8)
[2018-08-19] MEDS: Budesonide 0.5 mg/2 ml Inhal Susp UD INH SCH (07:18)
[2018-08-19 07:23] LABS: HEMOGLOBIN 13.3 g/dL (11.0-16.0)
[2018-08-19 07:42] LABS: CALCIUM 9.6 mg/dl (8.6-10.4)
[2018-08-19 08:05] VITALS: BP 131/85; PULSE 94; TEMP 97.6; O2SAT 97
[2018-08-19] MEDS: Arformoterol 15 mcg/2 ml Inh Sol INH SCH (09:23)
[2018-08-19] MEDS: Calcium Carbonate 500 mg Chewable Antacid Tab PO SCH (09:25)
[2018-08-19] MEDS: MethylPREDNISolone 40 mg Vial IVP SCH (09:27)
[2018-08-19] MEDS: Pantoprazole 40 mg EC Tab PO SCH (09:27)
[2018-08-19] MEDS: Belladonna-Phenobarbital PO SCH (09:43)
[2018-08-19] MEDS: Azithromycin 500 MG in Sodium Chloride 0.9% 250 ML IVPB SCH (10:00)
--- NOTE | 2018-08-19 16:10 | PN ---
DATE: 08/19/2018 LOCATION: 657, bed A. SUBJECTIVE: This is an 82-year-old female seen and examined in rounds with a complaint of persistent cough last night but none this morning as much with generalized weakness and malaise, abdominal discomfort with postprandial abdominal distention. No actual chest pain, palpitation, or evidence of active GI bleeding. The entire chart is reviewed, including the most recent lab results with today's white blood cells of 17.5 with normal hemoglobin and hematocrit as well as normal platelet count with BUN of 42, creatinine 1.3, blood glucose level 202. PHYSICAL EXAMINATION: GENERAL: An 82-year-old female, awake, alert, oriented. VITAL SIGNS: Afebrile with pulse of 92, respiratory rate 20 to 22, blood pressure of 134/82. HEENT: Dry, pale, mildly mucous membrane with nonicteric sclerae. LUNGS: Scattered crepitation with decreased air entry at bases. HEART: Positive S1 and S2 with increased rate. ABDOMEN: Soft with mild generalized tenderness, mildly distended, mildly obese. No mass or organomegaly. No rebound tenderness or guarding. EXTREMITIES: With lower extremity edematous changes, chronic. No clubbing or cyanosis. NEUROLOGIC: No reported new neurological deficits, sensory or motor. IMPRESSION: 1. Re-exacerbation of chronic obstructive pulmonary disease with acute bronchitis. 2. Peptic ulcer disease. 3. Diverticulosis with mild early stage of diverticulitis clinically. 4. Acute muscle spasm, most likely secondary to persistent coughing with muscle strain. SUGGESTIONS: 1. Agree with your plan. 2. Correct any underlying electrolyte imbalance, especially the patient has mild increased BUN. 3. Chest CAT scan. Further recommendation to follow. Brian Cuba MD
--- NOTE | 2018-08-19 16:52 | CP.PCM.PN ---
Subjective - Date & Time of Evaluation Date of Evaluation: 08/19/18 Time of Evaluation: 11:00 - Subjective Subjective: alert, oriented, no chest pain or wheezing. Objective - Vital Signs/Intake and Output Vital Signs (last 24 hours): Temp Pulse Resp BP Pulse Ox 97.6 F 94 H 20 131/85 97 08/19/18 07:00 08/19/18 07:00 08/19/18 07:00 08/19/18 09:26 08/19/18 07:00 Intake and Output: 08/19/18 08/19/18 06:59 18:59 Intake Total 400 Output Total 480 Balance -80 - Labs Labs: 08/19/18 07:01 08/19/18 07:01 PT 11.7 SECONDS (9.7-12.2) 08/15/18 14:01 INR 1.1 08/15/18 14:01 APTT 33.0 SECONDS (21-34) 08/15/18 14:01 Assessment and Plan - Assessment and Plan (Free Text) Assessment: 82 year old female admitted COPD exacerbation , chest pain, seen and examined. Alert and orientedx3, feeling much better, no wheezing or distress noted. Discussed with DR Lane , plan to discharge home today. Advised to follow up with PMD in 1 week.
--- NOTE | 2018-08-19 17:45 | CP.PCM.PN ---
Subjective - Date & Time of Evaluation Date of Evaluation: 08/19/18 Time of Evaluation: 11:15 - Subjective Subjective: Patient seen and examined Cough much improved Afebrile Denies any chest pain Sitting comfortably in no distress Oka to discharge home follow up in the office Objective - Vital Signs/Intake and Output Vital Signs (last 24 hours): Temp Pulse Resp BP Pulse Ox 97.6 F 94 H 20 131/85 97 08/19/18 07:00 08/19/18 07:00 08/19/18 07:00 08/19/18 09:26 08/19/18 07:00 Intake and Output: 08/19/18 08/19/18 06:59 18:59 Intake Total 400 Output Total 480 Balance -80 - Labs Labs: 08/19/18 07:01 08/19/18 07:01 PT 11.7 SECONDS (9.7-12.2) 08/15/18 14:01 INR 1.1 08/15/18 14:01 APTT 33.0 SECONDS (21-34) 08/15/18 14:01 Assessment and Plan (1) Acute bronchitis Status: Acute (2) Asthma exacerbation Status: Acute
[2018-08-20] MEDS ORDERED: Ergocalciferol 50,000 Intl Units Cap PO SCH (10:00)
== END 2018-08-19 16:04 | disposition home or self-care (01) | DRG 202 ==
LOC: C.ER 12:28 → C.9E 15:13 → UNDOADMOB 15:13 → C.6T 16:02 → C.9E 16:02 → C.6T 16:37 → OBSVTOIN 08-15 14:24 → INTOOBSV 08-15 14:24 → C.9E 08-16 14:24 → OBSVTOIN 08-16 14:24 → C.6T 08-16 14:24
PROVIDERS: ADMIT Internal Medicine; ATTEND Internal Medicine
DX: J45.901 Unspecified asthma with (acute) exacerbation (principal); J44.1 Chronic obstructive pulmonary disease with (acute) exacerbation; K57.92 Diverticulitis of intestine, part unspecified, without perforation or abscess without bleeding; K27.3 Acute peptic ulcer, site unspecified, without hemorrhage or perforation; J44.0 Chronic obstructive pulmonary disease with (acute) lower respiratory infection; E66.9 Obesity, unspecified; J20.9 Acute bronchitis, unspecified; E03.9 Hypothyroidism, unspecified; I11.0 Hypertensive heart disease with heart failure; I50.9 Heart failure, unspecified; M62.838 Other muscle spasm

== ENCOUNTER 2018-09-05 11:57 | Inpatient (IN) | payer MEDICARE ==
[2018-09-05 12:04] VITALS: BMI 46.3
--- NOTE | 2018-09-05 12:30 | C.PDOC ---
History Of Present Illness 82 year old female with a past medical history of asthma, bronchitis, gastritis, hypertension, and hypothyroidism presents to the emergency department with complaints of recurring shortness of breath since yesterday. Patient has mult iple prior admissions for CHF and asthma exacerbation. Patient also reports lower extremity swelling, which has not been improving with recent medications. Patient also reports symptoms of subjective fever, chills, diarrhea last night. Patient states that she is compliant with all of her medications. Patient's past surgical history includes a cholecystectomy and a thyroidectomy. Patient is allergic to fish. Patient denies significant family history, and denies smoking, EtOH abuse, and illicit drug use. PMH:Asthma, bronchitis, gastritis, HTN, Hypothyroidism PSH: Cholecystectomy, Thyroidectomy Allergies: Fish FamHx: Denies significant family history Social: Denies smoking, etoh, and illicit drug use. Time Seen by Provider: 09/05/18 12:29 Chief Complaint (Nursing): Shortness Of Breath History Per: Patient History/Exam Limitations: no limitations Onset/Duration Of Symptoms: Days (1) Current Symptoms Are (Timing): Still Present Current Respiratory Medications: See Home Med List Associated Symptoms: Fever, Chills, Ankle/Leg Swelling, Other (shortness of breath, diarrhea). denies: Chest Pain Past Medical History Reviewed: Historical Data, Nursing Documentation, Vital Signs Vital Signs: Last Vital Signs Temp 97.5 F L 09/05/18 12:04 Pulse 109 H 09/05/18 12:04 Resp 20 09/05/18 12:04 BP 128/95 H 09/05/18 12:04 Pulse Ox 99 09/05/18 12:04 Primary Care Provider: Sherron Dave - Medical History PMH: Arthritis, Asthma, Bronchitis, CHF, COPD, Gastritis, Gall Bladder Disease, HTN, Hypercholesterolemia, Hypothyroidism, Peripheral Edema, Pneumonia, Chronic Kidney Disease Denies: Fractures Surgical History: Cholecystectomy, Endoscopy Denies: Pacemaker - [facility] Procedures CLOSED ENDOSCOPIC BIOPSY OF LARGE INTESTINE (12/10/13) ESOPHAGOGASTRODUODENOSCOPY [EGD] W/CLOSED BIOPSY (12/10/13) EXCISION OF SIGMOID COLON, ENDO, DIAGN (08/04/18) Family History: States: No Known Family Hx - Social History Hx Tobacco Use: No Hx Alcohol Use: No Hx Substance Use: No - Immunization History Hx Tetanus Toxoid Vaccination: No Hx Influenza Vaccination: No Hx Pneumococcal Vaccination: No Review Of Systems Except As Marked, All Systems Reviewed And Found Negative. Constitutional: Positive for: Fever, Chills Cardiovascular: Positive for: Edema. Negative for: Chest Pain Respiratory: Positive for: Shortness of Breath. Negative for: Cough Gastrointestinal: Positive for: Diarrhea Physical Exam - Physical Exam Appears: Non-toxic, No Acute Distress Skin: Normal Color, Warm, Dry Head: Atraumatic, Normacephalic Eye(s): bilateral: Normal Inspection, PERRL, EOMI Nose: Normal Oral Mucosa: Moist Throat: Normal, No Erythema Neck: Normal, Supple Chest: Symmetrical, No Tenderness Cardiovascular: Rhythm Regular, No Murmur Respiratory: No Rales, No Rhonchi, No Wheezing, Other (poor inspiratory efffort, no retractions, speaking full sentences) Gastrointestinal/Abdominal: Soft, No Tenderness Extremity: Normal ROM, Swelling (+1 pitting edema of the lower extremities) Neurological/Psych: Oriented x3, Normal Speech, Normal Cognition ED Course And Treatment - Laboratory Results Result Diagrams: 09/05/18 13:04 09/05/18 13:04 O2 Sat by Pulse Oximetry: 99 (RA) Pulse Ox Interpretation: Normal - Radiology CXR: Interpreted by Me CXR Interpretation: Yes: No Acute Disease Progress Note: Plan: EKG. Chemistry. CBC. CXR. Albuterol. Solu-Medrol 80mg IVP Progress - Re-Evaluation Re-evaluation Note: 09/05/18 14:15 ON VAPOTHERM FEELS BETTER BUT STILL W RESIDUAL SOB. D/W DR DAVE WILL ADMIT - Data Reviewed Data Reviewed: Lab, Diagnostic imaging, EKG, Old records Medical Decision Making Medical Decision Making: Recurring shortness of breath, CHF exacerbation. Disposition Counseled Patient/Family Regarding: Studies Performed, Diagnosis - Disposition Disposition: HOSPITALIZED Disposition Time: 14:17 Condition: STABLE Forms: [employer] (Citizen Of [place]) - POA Present On Arrival: Poor Glycemic Control - Clinical Impression Clinical Impression: Dyspnea, CHF exacerbation - Scribe Statement The provider has reviewed the documentation as recorded by the Scribe (Fuad Reddy) Provider Attestation: All medical record entries made by the Scribe were at my direction and personally dictated by me. I have reviewed the chart and agree that the record accurately reflects my personal performance of the history, physical exam, medical decision making, and the department course for this patient. I have also personally directed, reviewed, and agree with the discharge instructions and disposition.
[2018-09-05] MEDS ORDERED: Albuterol-Ipratrop 3 mg / 0.5 (3 ml) UD ONE (13:12)
[2018-09-05] MEDS ORDERED: MethylPREDNISolone 40 mg Vial ONE (13:12)
[2018-09-05 13:13] LABS: BASO # 0.1 K/uL (0.0-0.2); BASO % 0.5 % (0.0-2.0); EOS # 0.2 K/uL (0.0-0.7); EOS % 1.8 % (0.0-4.0); LYMPH # 2.2 K/uL (1.0-4.3); LYMPH % 20.5 % (20.0-40.0); MEAN CELL VOLUME 83.7 fL (81.0-99.0); MEAN CORPUSCULAR HEMOGLOBIN 27.6 pg (27.0-31.0); MEAN PLATELET VOLUME 7.9 fL (7.2-11.7); MONO # 0.6 K/uL (0.0-0.8); MONO % 5.6 % (0.0-10.0); NEUT # 7.5 K/uL (1.8-7.0); NEUT % 71.6 % (50.0-75.0); NRBC % 0.1 % (0.0-2.0); RBC 3.81 Mil/uL (3.80-5.20); WHITE BLOOD COUNT 10.5 K/uL (4.8-10.8)
[2018-09-05 13:14] LABS: HEMOGLOBIN 10.5 g/dL (11.0-16.0)
[2018-09-05 13:32] LABS: B-TYPE NATRIURETIC PEPTIDE 2400 pg/mL (0-900)
[2018-09-05 13:36] LABS: ALB/GLOB RATIO 1.2 (1.0-2.1); ALBUMIN 3.7 g/dL (3.5-5.0); ALT/SGPT 40 U/L (9-52); AST/SGOT 41 U/L (14-36); BLOOD UREA NITROGEN 22 mg/dL (7-17); CALCIUM 9.4 mg/dl (8.6-10.4); GFR NON-AFRICAN AMERICAN 60
--- NOTE | 2018-09-05 13:36 | RAD ---
Date of service: 09/05/2018 HISTORY: Shortness of breath COMPARISON: 08/13/2018 TECHNIQUE: 1 view obtained. FINDINGS: LUNGS: Mild venous congestion. Patchy increased markings at the left lung base and right infrahilar region. Question trace left pleural effusion. This would be better evaluated with lateral view. Bilateral hilar prominence. PLEURA: As above. CARDIOVASCULAR: Aortic atherosclerotic calcification present. Cardiomegaly. Enlarged ectatic aorta. OSSEOUS STRUCTURES: Degenerative changes in the spine and shoulders. VISUALIZED UPPER ABDOMEN: Normal. OTHER FINDINGS: None. IMPRESSION: Mild venous congestion. Patchy increased markings at the left lung base and right infrahilar region. Question trace left pleural effusion. This would be better evaluated with lateral view. Bilateral hilar prominence. Cardiomegaly. Enlarged ectatic aorta.
[2018-09-05] MEDS: Albuterol-Ipratrop 3 mg / 0.5 (3 ml) UD IH SCH ×3 (14:18→19:22)
[2018-09-06] MEDS: Albuterol-Ipratrop 3 mg / 0.5 (3 ml) UD IH SCH ×4 (01:13→19:36)
[2018-09-06] MEDS: Levothyroxine 50 MCG TAB PO SCH (05:55)
[2018-09-06] MEDS: Pantoprazole 40 mg EC Tab PO SCH (09:51)
[2018-09-06 10:44] LABS: CK-MB 0.58 ng/mL (0.0-3.38)
[2018-09-06] MEDS ORDERED: POLYETHYLENE GLYCOL 3350 17 GM/Dose PACKET PO PRN (11:50)
[2018-09-06 13:58] LABS: IRON 66 ug/dL (37-170)
[2018-09-06 14:00] LABS: HDL CHOLESTEROL 34 mg/dL (30-70)
[2018-09-06 14:07] LABS: % IRON SATURATION 24 (20-55); TOTAL IRON BINDING CAPACITY 268 ug/dL (250-450)
[2018-09-06 14:12] LABS: LDL CHOLESTEROL 99 mg/dL (0-129)
[2018-09-06 14:16] LABS: B-TYPE NATRIURETIC PEPTIDE 2620 pg/mL (0-900)
[2018-09-06 15:25] LABS: FOLATE > 20.0 ng/mL
--- NOTE | 2018-09-06 19:13 | HP ---
The patient is an 82-year-old female. The patient was seen and examined at the bedside on 09/05/2018. HISTORY OF PRESENT ILLNESS: Ms. Grady Osman is an 82-year-old female with past medical history of asthma, bronchitis, gastritis, hypertension, hyperthyroidism, history of GI bleeding, obesity came in the Emergency Department complaining of recurrent shortness of breath and not feeling well. The patient had multiple prior admissions for congestive heart failure, asthma exacerbation and GI bleeding. The patient is reporting lower extremity swelling. No fever. No chills. No hematuria, no hematochezia. 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 PAST MEDICAL HISTORY: Asthma, bronchitis, gastritis, hypertension, hyperthyroidism. SURGICAL HISTORY: Cholecystectomy, thyroidectomy. ALLERGIES: THE PATIENT IS NOT ALLERGIC WITH ANY MEDICATIONS. FAMILY HISTORY: Father and mother noncontributory. SOCIAL HISTORY: Denies smoking and no ethanol and no illicit street drug use. REVIEW OF SYSTEMS: The patient was seen and examined at the bedside. Looking comfortable. No fever. No chills. No hematuria. No hematochezia. Just feeling shortness of breath. No headache. No dizziness. PHYSICAL EXAMINATION: VITAL SIGNS: Temperature 97.6, pulse 109, respiratory rate 20, blood pressure 128/59, and pulse oximetry 99. HEENT: Head: Normocephalic and atraumatic. Eyes: PERRLA. Extraocular muscles are intact. Conjunctivae are clear. Nose is patent. Mucous membranes are moist. NECK: Supple. No carotid bruits. No JVD or thyromegaly. CHEST: Bilaterally symmetrical. HEART: S1 and S2 positive. LUNGS: Clear to auscultation. ABDOMEN: Soft. Bowel sounds present. No organomegaly. EXTREMITIES: No edema and no cyanosis. NEUROLOGIC: The patient is awake and alert. Moving all four extremities. No focal deficits. LABORATORY DATA: White blood cell is 7.5, hemoglobin 10.5, hematocrit 31.9, platelets 221. Sodium 140, potassium 4.3, BUN 22, creatinine 0.9, glucose 116. AST 41. ASSESSMENT AND PLAN: Ms. Grady Osman is an 82-year-old lady with anemia, increased BUN, hypercalcemia, abnormal liver function test came with shortness of breath. Chest x-ray done and reviewed by me. Mild venous congestion likely increased markings at the left lung base and right infrahilar region, at present trace left pleural effusion, most likely the patient came with exacerbation of congestive heart failure, history of asthma, bronchitis, gastrointestinal bleed, hypertension, hyperthyroidism, cholecystectomy, thyroidectomy, acute labs. Called Cardiology and Pulmonary consult. We will follow. Sherron Lane MD
[2018-09-06 21:03] LABS: INR 1.3; PARTIAL THROMBOPLASTIN TIME 32.7 SECONDS (21-34); PROTHROMBIN TIME 14.5 SECONDS (9.7-12.2)
--- NOTE | 2018-09-06 22:09 | PN ---
DATE: 09/06/2018 SUBJECTIVE: The patient is an 82-year-old female. The patient was seen and examined at the bedside on 09/06/2018. Still complaining about shortness of breath. According to the patient, she does have bowel movement. No fever. No chills. No hematuria or hematochezia. No headache or dizziness. No chest pain. No palpitation. PHYSICAL EXAMINATION: VITAL SIGNS: Temperature 98.1, pulse 94, blood pressure 144/90, respiratory rate 20. HEENT: Head: Normocephalic, atraumatic. Eyes: PERRLA. Extraocular movements intact. Conjunctivae clear. Nose patent. Mucous membranes moist. NECK: Supple. No carotid bruits. No JVD or thyromegaly. CHEST: Bilaterally symmetrical. HEART: S1 and S2 positive. LUNGS: Clear to auscultation. ABDOMEN: Soft. Bowel sounds present. No organomegaly. EXTREMITIES: No edema. No cyanosis. NEUROLOGICAL: The patient is awake, alert. Moving all four extremities. No focal deficits. MEDICATIONS: Aldactone, Bentyl, folate, Crestor, albuterol, aspirin, Eliquis, ferrous sulfate, Lasix, MiraLax, Protonix, Singulair, Synthroid, Tylenol, Vasotec. LABORATORY DATA: White blood cells 7.6, hemoglobin 10.5, hematocrit 31.9, platelets 221. Sodium 140, potassium 4.3, BUN 22, creatinine 0.9, and glucose 116. AST 41. ASSESSMENT AND PLAN: Mrs. Jacqui Rasmussen is an 82-year-old lady with anemia, hyperglycemia, abnormal liver function tests, congestive heart failure. Has a history of constipation. Came with dyspnea and shortness of breath. History of asthma, bronchitis, gastritis, hypertension, hypothyroidism, history of cholecystectomy and thyroidectomy. Came with exacerbation of congestive heart failure. Cardiology consult called. Started home medications and intravenous Lasix. The patient is in atrial fibrillation. Seen by Dr. Alex Bailon. Started the patient on diltiazem. Out of bed. Physical therapy. Repeat labs. MiraLax was given for constipation. We will follow up. Sherron Lane MD [facility]
[2018-09-06 22:20] LABS: SQUAMOUS EPITHIAL 1 /hpf (0-5); URINE BILIRUBIN NEGATIVE (NEGATIVE); URINE BLOOD NEGATIVE (NEGATIVE); URINE CLARITY Clear (Clear); URINE COLOR Yellow (YELLOW); URINE GLUCOSE (UA) NORMAL (Normal); URINE LEUKOCYTE ESTERASE NEG Leu/uL (Negative); URINE PROTEIN NEGATIVE (NEGATIVE); URINE UROBILINOGEN NORMAL mg/dL (0.2-1.0)
--- NOTE | 2018-09-06 22:31 | PN ---
DATE: 09/06/2018 LOCATION: 656, bed A. SUBJECTIVE: This is an 82-year-old female, seen and examined initially on 09/05/2018 as requested by the patient herself as well as admitting staff. I examined her again tonight. The entire chart is reviewed including but not limited to the most recent lab and radiology study results, current and the previous medication lists, current and previous medical events with less episodes of shortness of breath; however, the patient has been started on therapy as well. She was complaining of abdominal pain. No bowel movement for the last three days or so. No nausea or vomiting but mild dyspepsia. LABORATORY DATA: Today's lab results showed normal lipid profile with vitamin B12 high at 954 with folate more than 20 and normal iron studies with hemoglobin A1c normal of 6.5 despite elevated blood glucose level before. However, the patient has been having low hemoglobin and hematocrit. The most recent chest x-ray showed mild venous congestion with patchy infiltrate in the right lung as well as the left lung base with evidence of cardiomegaly. PHYSICAL EXAMINATION: GENERAL: An 82-year-old female. VITAL SIGNS: Afebrile with pulse of 92, respiratory rate 20 to 22, blood pressure 140/84. HEENT: Showed pale, dry oral mucous membranes, nonicteric sclerae. LUNGS: Few scattered crepitation. Decreased air entry at bases. HEART: Positive S1 and S2. ABDOMEN: Soft, mildly obese, mild generalized tenderness. No mass or organomegaly. No rebound tenderness or guarding. EXTREMITIES: Lower extremities, mild edematous changes. No clubbing or cyanosis. NEUROLOGICAL: No reported new neurological deficits, sensory or motor. IMPRESSION: 1. Re-exacerbation of chronic obstructive pulmonary disease. 2. Reported congestive heart failure. 3. Known history of peptic ulcer disease, diverticulosis with chronic constipation. 4. Pneumonia by history. 5. Known history of hypertension, hypothyroidism, hyperlipidemia. 6. Osteoarthritis by history. 7. Status post cholecystectomy by history. 8. Anemia, most likely secondary to above. SUGGESTIONS: 1. Continue current management. 2. Repeat cancer markers including CEA. 3. Dulcolax 5 mg one tablet p.o. daily for the following three to four days. 4. Further recommendation to follow. Brian Cuba MD [facility] # [id number]
[2018-09-07] MEDS: Albuterol-Ipratrop 3 mg / 0.5 (3 ml) UD IH SCH ×4 (00:58→19:12)
[2018-09-07] MEDS: Levothyroxine 50 MCG TAB PO SCH (05:57)
[2018-09-07 06:52] LABS: HEMOGLOBIN 10.6 g/dL (11.0-16.0); MEAN CORPUSCULAR HEMOGLOBIN 27.7 pg (27.0-31.0); MEAN CORPUSCULAR HGB CONC 33.4 g/dL (33.0-37.0); MEAN PLATELET VOLUME 7.9 fL (7.2-11.7); RBC 3.82 Mil/uL (3.80-5.20); RED CELL DISTRIBUTION WIDTH 14.6 % (11.5-14.5); WHITE BLOOD COUNT 11.6 K/uL (4.8-10.8)
[2018-09-07 07:01] LABS: BLOOD UREA NITROGEN 23 mg/dL (7-17); CALCIUM 9.5 mg/dl (8.6-10.4); GFR NON-AFRICAN AMERICAN > 60
--- NOTE | 2018-09-07 07:35 | PN ---
DATE: 09/07/2018 LOCATION: 656, bed A. SUBJECTIVE: This is an 82-year-old female, seen and examined in rounds without significant clinical changes, awake, alert, oriented with less complaint of shortness of breath. No chest pain or palpitation and so far, no reported chills or fever, but denied any bowel movement yet. The entire chart is reviewed including but not limited to the most recent lab and radiology study results, current and the previous medication list, current and the previous medical events and today's lab results still pending but the patient reported to have low hemoglobin and hematocrit before. The patient was placed on Cardizem before and no reported palpitation so far. PHYSICAL EXAMINATION: GENERAL: An 82-year-old female, awake, alert, oriented. VITAL SIGNS: Afebrile with pulse of 90, respiratory rate 20 to 22, blood pressure 124/80. HEENT: Showed pale, dry oral mucous membrane. Nonicteric sclerae. LUNGS: Few scattered crepitation. Decreased air entry at bases. HEART: Positive S1 and S2. ABDOMEN: Soft with mild generalized tenderness. No mass or organomegaly. No rebound tenderness or guarding. NEUROLOGIC: No reported new neurological deficits, sensory or motor. No new reported focal deficits. EXTREMITIES: Mild lower extremity edematous changes. No clubbing or cyanosis. IMPRESSION: 1. Re-exacerbation of congestive heart failure, mild, improving clinically. 2. Re-exacerbation of chronic obstructive pulmonary disease. 3. Peptic ulcer disease with diverticulosis and change of bowel movement habit. 4. Known history of osteoarthritis, hyperlipidemia, hypothyroidism as well as hypertension. 5. Anemia, most likely secondary to above. SUGGESTIONS: 1. Continue current management. 2. Add citrate of magnesium. 3. tab. 4. High-fiber diet, no seeds, no citrus. 5. Thyroid profile also to be ordered. 6. Further recommendation to follow. 7. No need for aggressive GI workup until the patient is more stable clinically. Brian Cuba MD
[2018-09-07] MEDS ORDERED: Magnesium Citrate Oral SOL (300 ml) PO ONE (09:00)
[2018-09-07] MEDS: Pantoprazole 40 mg EC Tab PO SCH (09:45)
[2018-09-07] MEDS: Bisacodyl 5mg EC Tab PO SCH (09:46)
[2018-09-07] MEDS: Belladonna-Phenobarbital PO SCH ×3 (09:46→17:02)
[2018-09-07] MEDS ORDERED: Pneumococcal 23-Valent Vaccine IM ONE (10:00)
--- NOTE | 2018-09-07 11:56 | CP.PCM.CON ---
History of Present Illness - History of Present Illness History of Present Illness: Reason for consultation: Shortness of breath Patient is an 82yo AA F that originally presented to with shortness of breath, x1 day. The patient also complains of LE edema bilaterally. The patient currently denies, chest pain, palpitations, nausea, vomiting, fever, nasal congestion, abd pain, joint pain. PMH:Asthma, bronchitis, gastritis, HTN, Hypothyroidism PSH: Cholecystectomy, Thyroidectomy Allergies: Fish FamHx: Denies significant family history Social: Denies smoking, etoh, and illicit drug use. Review of Systems - Review of Systems All systems: reviewed and no additional remarkable complaints except (Shortness of breath) Past Patient History - Infectious Disease Hx of Infectious Diseases: None - Past Medical History & Family History Past Medical History?: Yes - Past Social History Smoking Status: Never Smoked - CARDIAC Hx Congestive Heart Failure: Yes Hx Hypercholesterolemia: Yes Hx Hypertension: Yes Hx Pacemaker: No Hx Peripheral Edema: Yes - PULMONARY Hx Asthma: Yes Hx Bronchitis: Yes Hx Chronic Obstructive Pulmonary Disease (COPD): Yes Hx Pneumonia: Yes - NEUROLOGICAL Hx Neurological Disorder: Yes Hx Dizziness: Yes - HEENT Hx HEENT Problems: Yes Hx Epistaxis: Yes Hx Glaucoma: Yes Other/Comment: 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 wear glasses f or poor vision - RENAL Hx Chronic Kidney Disease: Yes - ENDOCRINE/METABOLIC Hx Hypothyroidism: Yes - HEMATOLOGICAL/ONCOLOGICAL Hx Blood Disorders: Yes Hx Blood Transfusions: Yes - INTEGUMENTARY Hx Dermatological Problems: No - MUSCULOSKELETAL/RHEUMATOLOGICAL Hx Arthritis: Yes Hx Fractures: No - GASTROINTESTINAL Hx Gall Bladder Disease: Yes Hx Gastritis: Yes - GENITOURINARY/GYNECOLOGICAL Hx Genitourinary Disorders: No - PSYCHIATRIC Hx Substance Use: No - SURGICAL HISTORY Hx Cholecystectomy: Yes - ANESTHESIA Hx Anesthesia: Yes Hx Anesthesia Reactions: No Hx Malignant Hyperthermia: No Meds Allergies/Adverse Reactions: Allergies Allergy/AdvReac Type Severity Reaction Status Date / Time FISH AdvReac VOMITING Verified 08/03/18 08:49 seasonal Allergy CONGESTION Uncoded 08/03/18 08:49 - Medications Medications: Current Medications Acetaminophen (Tylenol 325mg Tab) 650 mg PO Q4H PRN PRN Reason: pain fever Albuterol/Ipratropium (Duoneb 3 Mg/0.5 Mg (3 Ml) Ud) 3 ml IH RQ6 [facility] Last Admin: 09/07/18 07:56 Dose: 3 ml Apixaban (Eliquis) 5 mg PO BID [facility] Last Admin: 09/07/18 09:46 Dose: 5 mg Aspirin (Ecotrin) 81 mg PO DAILY [facility] Last Admin: 09/07/18 09:46 Dose: 81 mg Belladonna/Phenobarbital () 1 tab PO TID [facility] Last Admin: 09/07/18 09:46 Dose: 1 tab Bisacodyl (Dulcolax) 5 mg PO DAILY [facility] Stop: 09/09/18 18:32 Last Admin: 09/07/18 09:46 Dose: 5 mg Carvedilol (Coreg) 12.5 mg PO BID [facility] Last Admin: 09/07/18 09:46 Dose: 12.5 mg Dicyclomine HCl (Bentyl) 10 mg PO BID [facility] Last Admin: 09/06/18 18:34 Dose: 10 mg Enalapril Maleate (Vasotec) 20 mg PO BID [facility] Last Admin: 09/07/18 09:47 Dose: 20 mg Ferrous Sulfate (Feosol) 325 mg PO DAILY [facility] Last Admin: 09/07/18 09:46 Dose: 325 mg Furosemide (Lasix) 40 mg IVP Q12 [facility] Last Admin: 09/07/18 09:46 Dose: 40 mg Diltiazem HCl 125 mg/ Dextrose 125 mls @ 5 mls/hr IV .Q24H [facility]; Protocol Last Admin: 09/07/18 09:21 Dose: Not Given Levothyroxine Sodium (Synthroid) 50 mcg PO DAILY@0630 [facility] Last Admin: 09/07/18 05:57 Dose: 50 mcg Montelukast Sodium (Singulair) 10 mg PO [facility] Last Admin: 09/06/18 21:05 Dose: 10 mg Pantoprazole Sodium (Protonix Ec Tab) 40 mg PO DAILY [facility] Last Admin: 09/07/18 09:45 Dose: 40 mg Polyethylene Glycol (Miralax) 17 gm PO ONCE PRN PRN Reason: Constipation Last Admin: 09/06/18 14:44 Dose: 17 gm Rosuvastatin Calcium (Crestor) 5 mg PO [facility] Last Admin: 09/06/18 21:04 Dose: 5 mg Spironolactone (Aldactone) 25 mg PO DAILY [facility] Last Admin: 09/07/18 09:46 Dose: 25 mg Zolpidem Tartrate (Ambien) 5 mg PO HS PRN PRN Reason: Insomnia Last Admin: 09/06/18 21:03 Dose: 5 mg Physical Exam - Head Exam Head Exam: ATRAUMATIC, NORMOCEPHALIC - ENT Exam ENT Exam: Mucous Membranes Moist - Neck Exam Neck exam: Positive for: Normal Inspection - Respiratory Exam Respiratory Exam: Clear to Auscultation Bilateral - Cardiovascular Exam Cardiovascular Exam: REGULAR RHYTHM - GI/Abdominal Exam GI & Abdominal Exam: Normal Bowel Sounds, Soft - Extremities Exam Extremities exam: Positive for: pedal edema - Neurological Exam Neurological exam: Alert, Oriented x3 Results - Vital Signs Recent Vital Signs: Last Vital Signs Temp 98.3 F 09/06/18 23:00 Pulse 93 H 09/07/18 03:28 Resp 20 09/06/18 23:00 BP 132/86 09/07/18 09:47 Pulse Ox 97 09/07/18 03:25 - Labs Result Diagrams: 09/07/18 06:36 09/07/18 06:36 Labs: Laboratory Results - last 24 hr 09/06/18 09/06/18 09/06/18 13:40 13:40 13:40 WBC RBC Hgb Hct MCV MCH MCHC RDW Plt Count MPV PT INR APTT Sodium Potassium Chloride Carbon Dioxide Anion Gap BUN Creatinine Est GFR ( Amer) Est GFR (Non-Af Amer) Random Glucose Hemoglobin A1c 6.5 Calcium Iron 66 TIBC 268 % Saturation 24 NT-Pro-B Natriuret Pep 2620 H Triglycerides 85 Cholesterol 152 LDL Cholesterol Direct 99 HDL Cholesterol 34 Carcinoembryonic Ag CA 125 Antigen Vitamin B12 954 H Folate > 20.0 TSH 3rd Generation Urine Color Urine Clarity Urine pH Ur Specific [place] Urine Protein Urine Glucose (UA) Urine Ketones Urine Blood Urine Nitrate Urine Bilirubin Urine Urobilinogen Ur Leukocyte Esterase Urine WBC (Auto) Urine RBC (Auto) Ur Squamous Epith Cells Hyaline Casts 09/06/18 09/06/18 09/06/18 20:46 20:46 22:01 WBC RBC Hgb Hct MCV MCH MCHC RDW Plt Count MPV PT 14.5 H INR 1.3 APTT 32.7 Sodium Potassium Chloride Carbon Dioxide Anion Gap BUN Creatinine Est GFR ( Amer) Est GFR (Non-Af Amer) Random Glucose Hemoglobin A1c Calcium Iron TIBC % Saturation NT-Pro-B Natriuret Pep Triglycerides Cholesterol LDL Cholesterol Direct HDL Cholesterol Carcinoembryonic Ag 1.7 CA 125 Antigen 19.7 Vitamin B12 Folate TSH 3rd Generation Urine Color Yellow Urine Clarity Clear Urine pH 6.0 Ur Specific [place] 1.012 Urine Protein Negative Urine Glucose (UA) Normal Urine Ketones Negative Urine Blood Negative Urine Nitrate Negative Urine Bilirubin Negative Urine Urobilinogen Normal Ur Leukocyte Esterase Neg Urine WBC (Auto) 1 Urine RBC (Auto) < 1 Ur Squamous Epith Cells 1 Hyaline Casts 3-5 H 09/07/18 09/07/18 06:36 06:36 WBC 11.6 H RBC 3.82 Hgb 10.6 L Hct 31.7 L MCV 83.0 MCH 27.7 MCHC 33.4 RDW 14.6 H Plt Count 310 MPV 7.9 PT INR APTT Sodium 138 Potassium 3.8 Chloride 102 Carbon Dioxide 31 H Anion Gap 9 L BUN 23 H Creatinine 0.8 Est GFR ( Amer) > 60 Est GFR (Non-Af Amer) > 60 Random Glucose 88 D Hemoglobin A1c Calcium 9.5 Iron TIBC % Saturation NT-Pro-B Natriuret Pep Triglycerides Cholesterol LDL Cholesterol Direct HDL Cholesterol Carcinoembryonic Ag CA 125 Antigen Vitamin B12 Folate TSH 3rd Generation 4.14 Urine Color Urine Clarity Urine pH Ur Specific [place] Urine Protein Urine Glucose (UA) Urine Ketones Urine Blood Urine Nitrate Urine Bilirubin Urine Urobilinogen Ur Leukocyte Esterase Urine WBC (Auto) Urine RBC (Auto) Ur Squamous Epith Cells Hyaline Casts Assessment & Plan (1) CHF exacerbation Assessment and Plan: Findings consistent with CHF Continue with diuretics Agree with nebulizer treatment Status: Acute (2) Asthma exacerbation Status: Acute
[2018-09-07 12:17] LABS: FREE T4 1.13 ng/dL (0.78-2.19)
--- NOTE | 2018-09-07 14:14 | CARD ---
APPROVED REPORT Date of service: 09/05/2018 EKG Measurement Heart [id number] <Conclusion> Atrial fibrillation with rapid ventricular response Incomplete right bundle branch block ST & T wave abnormality, consider anterolateral ischemia Abnormal ECG
--- NOTE | 2018-09-07 19:59 | PN ---
DATE: 09/07/2018 SUBJECTIVE: The patient is an 82-year-old female. Looking comfortable. Complaining about constipation. No fever. No chills. No hematuria. No hematochezia. Still feeling dyspnea. No headache. No dizziness. Last night, she was asleep. PHYSICAL EXAMINATION: VITAL SIGNS: Blood pressure 124/80, respiratory rate 20, pulse oximetry 90%, the patient is afebrile. HEENT: Head: Normocephalic and atraumatic. Eyes: PERRLA. Extraocular muscles intact. Conjunctivae clear. Nose patent. Mucous membrane is moist. NECK: Supple. No carotid bruits. No JVD or thyromegaly. CHEST: Bilaterally symmetrical. HEART: S1, S2 positive. LUNGS: Clear to auscultation. ABDOMEN: Soft. Bowel sounds present. No organomegaly. EXTREMITIES: No edema, no cyanosis. NEUROLOGIC: The patient is awake and alert. Moving all four extremities. No focal deficits. MEDICATIONS: Aldactone, Ambien, Bentyl, Coreg, Crestor, diltiazem, Dulcolax, Ecotrin, Lasix, MiraLax, Protonix, Singulair, Synthroid, Tylenol, Vasotec. LABORATORY DATA: White blood cell 11.6, hemoglobin 10.3, hematocrit 31.7, platelets 310. Sodium 138, potassium 3.8, BUN 23, creatinine 0.8. BNP 2620. ASSESSMENT AND PLAN: Mrs. Grady Osman is an 82-year-old lady with leukocytosis, anemia, increased BUN, congestive heart failure, history of severe constipation, peptic ulcer disease with diverticulosis and change of bowel movement habit, known history of osteoarthritis, hypercholesterolemia, hyperthyroidism, hypertension, anemia most likely secondary to chronic diseases, congestive heart failure exacerbation improving, chronic obstructive pulmonary disease exacerbation improving. Continue current medication. Dr. Boudreaux added citrate of magnesium, tablet, high-fiber diet. Repeat TSH. Seen by Dr. Reynold Alvarez, business services manager. Continue diuretics and nebulizer treatment. Repeat labs. We will follow up. Sherron Lane MD [facility] # [id number] MTDD
[2018-09-08] MEDS: Albuterol-Ipratrop 3 mg / 0.5 (3 ml) UD IH SCH ×4 (01:18→19:30)
[2018-09-08] MEDS: Levothyroxine 50 MCG TAB PO SCH (05:56)
[2018-09-08] MEDS: Pantoprazole 40 mg EC Tab PO SCH (09:59)
[2018-09-08] MEDS: Belladonna-Phenobarbital PO SCH ×3 (09:59→17:11)
[2018-09-08] MEDS: Bisacodyl 5mg EC Tab PO SCH (09:59)
--- NOTE | 2018-09-08 12:10 | PN ---
DATE: 09/08/2018 LOCATION: 656, bed A. SUBJECTIVE: This is an 82-year-old female seen and examined in rounds with intermittent period of shortness of breath with mild generalized weakness and malaise, is still complaining of persistent constipation, but no reported active bleeding, no vomiting but nausea and dyspepsia, no chest pain or palpitation this morning. The entire chart is reviewed including but not limited to the most recent lab and radiology study results and today's lab results are still pending. However, the patient reported to have leukocytosis with low hemoglobin and hematocrit with increased CO2 content of 31 indicative of respiratory alkalosis. BUN is 23 with normal creatinine as well as normal TSH and TSH and free T4. PHYSICAL EXAMINATION: GENERAL: An 82-year-old female awake, alert, oriented. VITAL SIGNS: Afebrile with pulse of 92, respiratory rate 20-22, blood pressure of 130/84. HEENT: Showed pale, dry oral mucous membrane. Nonicteric sclerae. LUNGS: Few scattered crepitation. Decreased air entry at bases. HEART: Positive S1 and S2. ABDOMEN: Soft with mild generalized tenderness. No mass or organomegaly. No rebound tenderness or guarding, mildly obese. EXTREMITIES: Without significant clubbing or cyanosis. No reported new neurological deficits, sensory or motor. No reported new focal deficits. IMPRESSION: 1. Re-exacerbation of chronic obstructive pulmonary disease. 2. Congestive heart failure, improving clinically. 3. Re-exacerbation of peptic ulcer disease. 4. Diverticulosis with change of bowel movement habit with increased constipation. 5. Anemia most likely secondary to above. 6. Past medical history including but not limited to hypothyroidism, hypertension, hyperlipidemia with osteoarthritis. SUGGESTIONS: 1. Agree with your plan. 2. Increase the dose of lactulose on a daily basis. 3. Guaiac all the stools daily x3. 4. If the patient has no significant improvement, then sectional abdominal and pelvic CAT scan to be kept in mind. 5. Further recommendation to follow. Brian Cuba MD
[2018-09-08] MEDS ORDERED: Magnesium Citrate Oral SOL (300 ml) PO ONE (14:00)
--- NOTE | 2018-09-08 14:59 | CP.PCM.CON ---
History of Present Illness - History of Present Illness History of Present Illness: 82 year old female with a past medical history of asthma, bronchitis, gastritis, hypertension, and hypothyroidism presents to the emergency department with complaints of recurring shortness of breath since yesterday. Patient has multip le prior admissions for CHF and asthma exacerbation. Patient also reports lower extremity swelling, which has not been improving with recent medications. Patient also reports symptoms of subjective fever, chills, diarrhea last night. Patient states that she is compliant with all of her medications. Patient's past surgical history includes a cholecystectomy and a thyroidectomy. At the time of examination still have some SOB However selling of the legs have improved. Review of Systems - Constitutional Constitutional: As Per HPI - EENT Eyes: As Per HPI Nose/Mouth/Throat: As Per HPI - Cardiovascular Cardiovascular: As Per HPI - Respiratory Respiratory: As Per HPI - Neurological Neurological: As Per HPI Past Patient History - Infectious Disease Hx of Infectious Diseases: None - Past Medical History & Family History Past Medical History?: Yes - Past Social History Smoking Status: Never Smoked - CARDIAC Hx Congestive Heart Failure: Yes Hx Hypercholesterolemia: Yes Hx Hypertension: Yes - PULMONARY Hx Chronic Obstructive Pulmonary Disease (COPD): Yes - NEUROLOGICAL Hx Neurological Disorder: Yes Hx Dizziness: Yes - HEENT Hx HEENT Problems: Yes Hx Epistaxis: Yes Hx Glaucoma: Yes Other/Comment: 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 wear glasses for poor vision - RENAL Hx Renal Failure: Yes (CKD,) - ENDOCRINE/METABOLIC Hx Hypothyroidism: Yes - HEMATOLOGICAL/ONCOLOGICAL Hx Blood Disorders: Yes Hx Blood Transfusions: Yes - INTEGUMENTARY Hx Dermatological Problems: No - MUSCULOSKELETAL/RHEUMATOLOGICAL Hx Arthritis: Yes - GASTROINTESTINAL Hx Gall Bladder Disease: Yes Hx Gastritis: Yes - GENITOURINARY/GYNECOLOGICAL Hx Genitourinary Disorders: No - PSYCHIATRIC Hx Substance Use: No - SURGICAL HISTORY Hx Cholecystectomy: Yes - ANESTHESIA Hx Anesthesia: Yes Hx Anesthesia Reactions: No Hx Malignant Hyperthermia: No Meds Allergies/Adverse Reactions: Allergies Allergy/AdvReac Type Severity Reaction Status Date / Time FISH AdvReac VOMITING Verified 08/03/18 08:49 seasonal Allergy CONGESTION Uncoded 08/03/18 08:49 - Medications Medications: Current Medications Acetaminophen (Tylenol 325mg Tab) 650 mg PO Q4H PRN PRN Reason: pain fever Albuterol/Ipratropium (Duoneb 3 Mg/0.5 Mg (3 Ml) Ud) 3 ml IH RQ6 [facility] Last Admin: 09/08/18 14:24 Dose: 3 ml Apixaban (Eliquis) 5 mg PO BID [facility] Last Admin: 09/08/18 09:59 Dose: 5 mg Aspirin (Ecotrin) 81 mg PO DAILY [facility] Last Admin: 09/08/18 09:59 Dose: 81 mg Belladonna/Phenobarbital () 1 tab PO TID [facility] Last Admin: 09/08/18 13:25 Dose: 1 tab Bisacodyl (Dulcolax) 5 mg PO DAILY [facility] Stop: 09/09/18 18:32 Last Admin: 09/08/18 09:59 Dose: 5 mg Carvedilol (Coreg) 12.5 mg PO BID [facility] Last Admin: 09/08/18 09:59 Dose: 12.5 mg Dicyclomine HCl (Bentyl) 10 mg PO BID [facility] Last Admin: 09/08/18 10:07 Dose: 10 mg Enalapril Maleate (Vasotec) 20 mg PO BID [facility] Last Admin: 09/08/18 09:59 Dose: 20 mg Ferrous Sulfate (Feosol) 325 mg PO DAILY [facility] Last Admin: 09/08/18 09:59 Dose: 325 mg Furosemide (Lasix) 40 mg IVP Q12 [facility] Last Admin: 09/08/18 10:00 Dose: 40 mg Levothyroxine Sodium (Synthroid) 50 mcg PO DAILY@0630 [facility] Last Admin: 09/08/18 05:56 Dose: 50 mcg Montelukast Sodium (Singulair) 10 mg PO HS [facility] Last Admin: 09/07/18 21:41 Dose: 10 mg Pantoprazole Sodium (Protonix Ec Tab) 40 mg PO DAILY [facility] Last Admin: 09/08/18 09:59 Dose: 40 mg Polyethylene Glycol (Miralax) 17 gm PO ONCE PRN PRN Reason: Constipation Last Admin: 09/06/18 14:44 Dose: 17 gm Rosuvastatin Calcium (Crestor) 5 mg PO HS [facility] Last Admin: 09/07/18 21:41 Dose: 5 mg Spironolactone (Aldactone) 25 mg PO DAILY [facility] Last Admin: 09/08/18 09:59 Dose: 25 mg Zolpidem Tartrate (Ambien) 5 mg PO HS PRN PRN Reason: Insomnia Last Admin: 09/07/18 21:41 Dose: 5 mg Physical Exam - Head Exam Head Exam: NORMOCEPHALIC - Neck Exam Neck exam: Positive for: Normal Inspection - Respiratory Exam Respiratory Exam: NORMAL BREATHING PATTERN - Cardiovascular Exam Cardiovascular Exam: Irregular Rhythm - Extremities Exam Extremities exam: Positive for: pedal edema - Neurological Exam Neurological exam: Alert, Oriented x3 Results - Vital Signs Recent Vital Signs: Last Vital Signs Temp 98 F 09/08/18 07:00 Pulse 100 H 09/08/18 07:05 Resp 20 09/08/18 07:00 BP 128/85 09/08/18 10:00 Pulse Ox 99 09/08/18 07:05 - Labs Result Diagrams: 09/07/18 06:36 09/07/18 06:36 Assessment & Plan (1) CHF exacerbation Assessment and Plan: Diastolic dysfunction along with some compliance issues? Multiple admissions for CHF exacerbation. May need some help at home for monitoring . Keep fluid restriction and diuretics. Change IV Lasix to PO. Status: Acute (2) Atrial fibrillation Assessment and Plan: New onset. Rate is better controlled now. Change IV Cardizem to P O 30 Mg TID and adjust accordingly. Therapeutic anticoagulation. Maintain electrolyte b alance. Reduce Asthma treatments. Status: Acute
[2018-09-09 00:39] VITALS: TEMP 98.3
--- NOTE | 2018-09-09 03:49 | PN ---
DATE: 09/08/2018 SUBJECTIVE: The patient is an 82-year-old female. The patient was seen and examined at the bedside on 09/08/2018. The patient is looking comfortable. No fever. No chills. No headache. No dizziness. No chest pain. No palpitation. Constipation is better. No hematuria or hematochezia. PHYSICAL EXAMINATION: VITAL SIGNS: Temperature afibrile , respiratory rate is 20, blood pressure 128/85, pulse oximetry 99%. HEENT: Head: Normocephalic and atraumatic. Eyes: PERRLA. Extraocular muscles intact. Conjunctivae clear. Nose patent. Mucous membrane is moist. NECK: Supple. No carotid bruits. No JVD or thyromegaly. CHEST: Bilaterally symmetrical. HEART: S1, S2 positive. LUNGS: Clear to auscultation. ABDOMEN: Soft. Bowel sounds present. No organomegaly. EXTREMITIES: No edema, no cyanosis. NEUROLOGIC: The patient is awake and alert. Moving all four extremities. No focal deficits. LABORATORY DATA: White blood cells 11.6, hemoglobin 10.6, hematocrit 31.7, platelets 310. Sodium 138, potassium 3.8, BUN 23, creatinine is 0.8, glucose 88. MEDICATIONS: Ferrous sulfate, furosemide, levothyroxine, Singulair, Protonix, MiraLax, Crestor, Aldactone, and Ambien. ASSESSMENT AND PLAN: Ms. Jacqui Rasmussen is an 82 years old lady with leukocytosis, anemia, increased blood urea nitrogen, came with exacerbation of congestive heart failure, diastolic dysfunction along with some compliance issue, multiple admissions for congestive heart failure exacerbation, may need some help at home for monitoring, keep fluid restriction and diuresis. Change intravenous Lasix to by mouth upon discharge as per Cardiology. Atrial fibrillation, a new onset, rate is better controlled now. Change intravenous Cardizem to by mouth three times a day and adjust accordingly. Maintain asthma treatment. Appreciate Dr. Bailon's input. Seen by Dr. Brian Boudreaux. History of hypothyroidism, hypercholesterolemia, osteoarthritis, chronic constipation, exacerbation of chronic obstructive pulmonary disease also, peptic ulcer disease, diverticulosis with change of bowel movement habit with increased constipation. Dr. Boudreaux likely increased the dose of lactulose. He ordered stool guaiac x3. Gastrointestinal and deep venous thrombosis prophylaxis. Need good physical therapy. We will follow up. Sherron Lane MD [facility]
[2018-09-09] MEDS: Albuterol-Ipratrop 3 mg / 0.5 (3 ml) UD IH SCH ×2 (05:58→07:43)
[2018-09-09] MEDS: Levothyroxine 50 MCG TAB PO SCH (06:02)
[2018-09-09 07:39] VITALS: RESP 18; O2SAT 100
[2018-09-09 07:42] VITALS: PULSE 109
--- NOTE | 2018-09-09 09:57 | PCM.HF ---
Heart Failure Core Measure - Heart Failure Ejection Fraction: 40 % or Greater PAULINA Inhibitor Prescribed: Yes Beta-Jeff Prescribed: Carvedilol Angiotensin II Receptor Jeff Prescribed: No Contraindication/Reason for not providing: on paulina AnticoagulationTherapy for Atrial Fibrillation/Atrialflutter: Yes Aldosterone Antagonist Prescribed: Yes Hydralazine Nitrate Prescribed: No Contraindication/Reason for not providing: on cardizem Implantable Cardioverter Defibrillator Therapy: No Contraindication/Reason for not providing: ef>45 Cardiac Resynchronization Therapy Prescribed: No Contraindication/Reason for not providing: ef>45 - Follow up Will be discharged to: Home Follow Up Date (must be within 7 days from discharge): 09/13/18 Follow Up Time: 15:00
[2018-09-09] MEDS: Belladonna-Phenobarbital PO SCH ×2 (10:36→13:46)
[2018-09-09] MEDS: Pantoprazole 40 mg EC Tab PO SCH (10:36)
[2018-09-09] MEDS: Bisacodyl 5mg EC Tab PO SCH (10:38)
[2018-09-09 10:45] VITALS: BP 135/87
--- NOTE | 2018-09-09 15:39 | PN ---
DATE: 09/09/2018 LOCATION: 656, bed A. SUBJECTIVE: This is an 82-year-old female, seen and examined in rounds without significant clinical changes or reported active bleeding, but intermittent periods of crampy abdominal pain with bowel movement despite medication is given. The patient still has intermittent periods of shortness of breath, but no actual chest pain, palpitation, nausea, or vomiting. The entire chart is reviewed including but not limited to the most recent lab and radiology study results and the lab is still pending. PHYSICAL EXAMINATION: GENERAL: An 82-year-old female, awake, alert, oriented. VITAL SIGNS: Afebrile with pulse of 102, respiratory rate 18-20, and blood pressure 120/82. HEENT: Showed pale, dry oral mucoid membrane. Nonicteric sclerae. LUNGS: Few scattered crepitation. Decreased air entry at bases. HEART: Positive S1 and S2. ABDOMEN: Soft with mild generalized tenderness. No mass or organomegaly. No rebound tenderness or guarding. Abdominal distention noted. EXTREMITIES: Without significant clubbing, cyanosis, or edema. No reported new neurological deficits, sensory or motor. IMPRESSION: 1. Diverticulosis with change of bowel movement habit with severe constipation, chronic. 2. Re-exacerbation of chronic obstructive pulmonary disease. 3. Congestive heart failure, improving clinically. 4. Re-exacerbation of peptic ulcer disease. 5. Anemia most likely secondary to above. 6. Known history of hypothyroidism, hypertension with hyperlipidemia, and osteoporosis. SUGGESTION: 1. Continue current management. 2. Follow up on cancer markers. 3. High-fiber diet, no citrus, no seeds. 4. Further recommendation to follow. Brian Cuba MD
--- NOTE | 2018-09-09 17:57 | CP.PCM.PN ---
Subjective - Date & Time of Evaluation Date of Evaluation: 09/09/18 Time of Evaluation: 11:00 - Subjective Subjective: Patient seen and examined Sitting comfortably in no distress Slight cough Afebrile Stable from pulmonary standpoint Follow-up in the office Objective - Vital Signs/Intake and Output Vital Signs (last 24 hours): Temp Pulse Resp BP Pulse Ox 98.3 F 109 H 18 135/87 100 09/09/18 07:00 09/09/18 07:29 09/09/18 07:00 09/09/18 10:44 09/09/18 07:00 Intake and Output: 09/09/18 09/09/18 06:59 18:59 Intake Total 400 Balance 400 - Labs Labs: 09/07/18 06:36 09/07/18 06:36 PT 14.5 SECONDS (9.7-12.2) H 09/06/18 20:46 INR 1.3 09/06/18 20:46 APTT 32.7 SECONDS (21-34) 09/06/18 20:46 Assessment and Plan (1) CHF exacerbation Status: Acute (2) Asthma exacerbation Status: Acute
--- NOTE | 2018-09-10 08:12 | CON ---
DATE: 09/05/2018 LOCATION: 656, bed A. This is from Dr. Brian Cuba to Dr. Sherron Lane. I was called for a GI consultation by the admitting MD as well as the patient herself and the medical staff on the floor. The patient is seen and fully examined on 09/05/2018. The entire chart is reviewed including, but not limited to the most recent lab and radiology study results, current and the previous medication lists, current and the previous medical events, allergy to medication list as well as all the available current and the previous medical records. Case discussed at length with the admitting MD as well as the staff on the floor before and immediately after my GI consultation and physical examination on 09/05/2018. HISTORY OF PRESENT ILLNESS: This is an 82-year-old female, very well known case for me from previous multiple office visit and hospital admission, who is admitted to the hospital through the emergency room with underlying diagnosis of re-exacerbation of shortness of breath, productive cough on and off, dyspepsia with nausea with severe constipation. No reported active GI bleeding and no significant chest pain, palpitation at the time of the admission. No chills or fever. PAST MEDICAL HISTORY: Including but not limited to, 1. Peptic ulcer disease. 2. COPD with bronchitis. 3. Hypertension. 4. Hypothyroidism, status post partial thyroidectomy. 5. Cholelithiasis, status post cholecystectomy. 6. Diverticulosis with episodes of diverticulitis since above. LIST OF MEDICATIONS: None. ALLERGIES: THE PATIENT IS ALLERGIC TO FISH. FAMILY HISTORY: Unrelated to specific GI disorder. SOCIAL HISTORY: No reported recent history of cigarette smoking or alcohol intake. LABORATORY DATA: Initial blood results since the time of my physical examination showed hemoglobin 10.5, hematocrit 31.9 with normal platelet count and white blood cells with BUN 22 with normal creatinine. Blood glucose level 116 with AST of 41 with reported normal liver function tests. Chest x-ray, official report is seen indicative of mild venous congestion with patchy increased marking at the left lung and right infiltrative lesion. PHYSICAL EXAMINATION: GENERAL: An 82-year-old female, awake, alert, oriented. VITAL SIGNS: Afebrile at the time she was seen by me with respiratory rate 20 to 22, heart rate 102, blood pressure 150/94. HEENT: Showed pale, dry oral mucoid membrane. Nonicteric sclerae. LUNGS: Few scattered crepitation. Decreased air entry at bases. HEART: Positive S1 and S2 with increased rate. ABDOMEN: Soft with mild generalized tenderness. No mass or organomegaly. No rebound tenderness or guarding. EXTREMITIES: Without significant clubbing, cyanosis, or edema. NEUROLOGIC: No reported new neurological deficits, sensory or motor. IMPRESSION: 1. Re-exacerbation of chronic obstructive pulmonary disease. 2. Congestive heart failure, mild. 3. Possible early phase of pneumonia. 4. Re-exacerbation of chronic obstructive pulmonary disease, diverticulosis with chronic constipation. 5. Past medical history as mentioned above. 6. Anemia secondary to above. SUGGESTIONS: 1. Continue current management. 2. Add antibiotics IV including Flagyl. 3. Proton pump inhibitors. 4. High-fiber diet, no seeds. 5. Citrate of magnesium and the patient is to be placed on Linzess 290 mcg once a day as outpatient. 6. Cancer markers including CEA due to the patient's anemia. 7. Further recommendations to follow. 8. Sectional abdominal and pelvic CAT scan to be ordered. Thank you for letting me participate in your patient's case management. Brian Cuba MD
--- NOTE | 2018-09-10 21:25 | CARD ---
APPROVED REPORT Date of service: 09/06/2018 EKG Measurement Heart [id number] <Conclusion> Atrial fibrillation Right bundle branch block Abnormal ECG
--- NOTE | 2018-09-13 06:00 | DS ---
The patient was seen at the bedside on 09/09/2018. CHIEF COMPLAINT: Shortness of breath, swelling of the leg. HISTORY OF PRESENT ILLNESS: Ms. Jacqui Rasmussen is an 82-year-old female with a past medical history of asthma, bronchitis, gastritis, hypertension, hypothyroidism, history of GI bleeding ,obesity, noncompliance, came to the [facility] with shortness of breath, not feeling well who had multiple prior admissions for congestive heart failure, asthma and GI bleeding, was recently discharged, now came with exacerbation of congestive heart failure. Chest x-ray done. Seen by Dr. Reynold Alvarez, agriculture research director; Dr. Brian Cuba, sheet sewer; and Dr. Alex Bailon, professor of music. The patient was given IV Lasix. She improved. Discharged home with p.o. Lasix. Follow up with primary care physician and professor of music. PAST MEDICAL HISTORY: Asthma, bronchitis, gastritis, hypertension, and hypothyroidism. PAST SURGICAL HISTORY: Cholecystectomy, thyroidectomy. ALLERGIES: THE PATIENT IS NOT ALLERGIC WITH ANY MEDICATIONS. FAMILY HISTORY: Father and mother are noncontributory. SOCIAL HISTORY: No smoking, no drug, no ethanol. REVIEW OF SYSTEMS: The patient was seen and examined at bedside. Looking comfortable. No fever. No chills. No headache. No dizziness. No chest pain. No palpitation. No shortness of breath. Sitting comfortably. Slight cough. Afebrile. PHYSICAL EXAMINATION: VITAL SIGNS: Temperature 98.3, pulse 109, respiratory rate 18, blood pressure 135/87, pulse oximetry is 100%. HEENT: Head: Normocephalic and atraumatic. Eyes: PERRLA. Extraocular muscles intact. Conjunctivae clear. Nose patent. Mucous membranes moist. NECK: Supple. No carotid bruit. No JVD or thyromegaly. CHEST: Bilaterally symmetrical. HEART: S1 and S2 positive. LUNGS: Clear to auscultation. ABDOMEN: Soft. Bowel sounds present. No organomegaly. EXTREMITIES: No edema. No cyanosis. NEUROLOGIC: The patient is awake, alert. Follow simple commands. LABORATORY DATA: White blood cells 11.6, hemoglobin 10.2, hematocrit 31.7, platelets 310. Sodium 130, potassium 3.8, BUN 23, creatinine 0.8, glucose 88. ASSESSMENT AND PLAN: Ms. Jacqui Rasmussen is an 82-year-old lady with leucocytosis, anemia, came with exacerbation of congestive heart failure, asthma exacerbation, history of obesity, bronchitis, gastritis, hypertension, hypothyroidism. Came with exacerbation of congestive heart failure. Seen by the professor of music, Dr. Bailon and agriculture research director, Dr. Alvarez. Given intravenous Lasix. The patient improved. Discharged home. Follow up as outpatient. Medications provided at the bedside. The patient was discharged by Kristyn Allen, nurse practitioner. Sherron Lane MD
== END 2018-09-09 16:15 | disposition home or self-care (01) | DRG 291 ==
LOC: C.ER 11:57 → C.6T 14:17 → OBSVTOIN 09-06 16:09
PROVIDERS: ADMIT Internal Medicine; ATTEND Internal Medicine
DX: I13.0 Hypertensive heart and chronic kidney disease with heart failure and stage 1 through stage 4 chronic kidney disease, or unspecified chronic kidney disease (principal); I50.31 Acute diastolic (congestive) heart failure; E87.3 Alkalosis; J44.1 Chronic obstructive pulmonary disease with (acute) exacerbation; J45.901 Unspecified asthma with (acute) exacerbation; Z68.42 Body mass index [BMI] 45.0-49.9, adult; D72.829 Elevated white blood cell count, unspecified; E78.5 Hyperlipidemia, unspecified; E89.0 Postprocedural hypothyroidism; H54.7 Unspecified visual loss; D64.9 Anemia, unspecified; I48.91 Unspecified atrial fibrillation; H40.9 Unspecified glaucoma; K57.90 Diverticulosis of intestine, part unspecified, without perforation or abscess without bleeding; K59.09 Other constipation; N18.9 Chronic kidney disease, unspecified; M81.0 Age-related osteoporosis without current pathological fracture; K27.9 Peptic ulcer, site unspecified, unspecified as acute or chronic, without hemorrhage or perforation; E83.52 Hypercalcemia; E66.9 Obesity, unspecified; Z91.19 Patient's noncompliance with other medical treatment and regimen; K29.70 Gastritis, unspecified, without bleeding